=== PATIENT | female | born 1955 | race Caucasian/White ===

== ENCOUNTER → 2018-01-06 09:37 | Outpatient (CLI) | payer OTHER, SELFPAY ==
[2018-01-06 09:46] LABS: Microscopic, Urine URINE MICROSCOPIC (MICROSCOPIC)
[2018-01-06 10:23] LABS: Basophils # 0.1 K/mm3 (0-0.2); Basophils % 0.6 % (0.1-2.0); Eosinophils # 0.2 K/mm3 (0.0-0.4); Eosinophils % 1.7 % (0.1-12.0); Hemoglobin 14.5 g/dL (12.2-16.2); Lymphocytes # 3.9 K/mm3 (0.7-4.5); Lymphocytes % 36.9 K/mm3 (10-50); Mean Corpuscular HGB Conc 32.4 g/dL (31.8-35.4); Mean Corpuscular Hemoglobin 29.1 pg (27.0-31.2); Mean Corpuscular Volume 89.9 fl (81-99); Mean Platelet Volume 7.5 fl (7.4-10.4); Monocytes # 0.5 K/mm3 (0.1-1.0); Monocytes % 4.3 % (1.7-9.3); Neutrophils # 5.9 K/mm3 (1.8-7.8); Neutrophils % 56.5 % (37.0-80.0); Platelet Count 251 K/mm3 (142-424); Red Cell Distribution Width 14.2 % (11.5-17.5); White Blood Count 10.4 K/mm3 (4.8-10.8)
[2018-01-06 10:27] LABS: Appearance,Urine CLEAR (Clear); Bilirubin,Urine Negative (Negative); Blood, Urine Negative (Negative); Color,Urine YELLOW (Yellow); Glucose,Urine (UA) Negative (Negative); Ketones,Urine Negative (Negative); Leukocyte Esterase,Urine TRACE (Negative); Nitrate,Urine Negative (Negative); Protein,Urine Negative (Negative); Specific Gravity, Urine 1.025 (1.005-1.030); Urobilinogen,Urine 0.2 EU/dl (0.2)
[2018-01-06 10:42] LABS: Bacteria,Urine 2+ /lpf; Squamous Epithelial Cell,Urine 50-100 #/hpf (0-5)
[2018-01-06 10:58] LABS: Creatinine,Urine Random 216 mg/dL (20-320); Total Protein,Urine Random 23.6 mg/dL (0.0-11.9)
[2018-01-06 11:09] LABS: Albumin Level 3.8 gm/dL (3.4-5.0); Anion Gap 12.1 mEq/L (5-15); Blood Urea Nitrogen 31 mg/dL (7-18); Calcium 9.8 mg/dL (8.5-10.1); Carbon Dioxide 32 mmol/L (21.0-32.0); Chloride 103 mmol/L (98-107); Estimated Glomerular Filt Rate 31 ml/min (>60); GFR (African American) 37 ML/MIN (>60); Glucose 196 mg/dL (74-106); Phosphorous 3.3 mg/dL (2.4-4.9); Potassium 4.1 mmoL/L (3.5-5.1); Sodium 143 mmol/L (136-145); Uric Acid 6.6 mg/dL (2.6-7.2)
[2018-01-07 06:19] LABS: Vitamin D 25 Hydroxy 39.3 ng/mL (30.0-100.0)
[2018-01-08 14:47] LABS: Parathyroid Hormone Intact 70 pg/mL (15-65)
== END ==
PROVIDERS: Visit Provider Internal Medicine Nephrology
DX: N18.3 Chronic kidney disease, stage 3 (moderate) (principal)
CPT/HCPCS: 36415; 80069; 81001; 82570; 82652; 83970; 84155; 84550; 85025; 87086

== ENCOUNTER → 2018-01-07 11:33 | Outpatient (CLI) | payer OTHER, SELFPAY ==
[2018-01-08 14:49] LABS: Calcium, Ionized 5.5 mg/dL (4.5-5.6)
== END ==
PROVIDERS: Visit Provider Internal Medicine Nephrology
DX: N18.3 Chronic kidney disease, stage 3 (moderate) (principal)
CPT/HCPCS: 82330

== ENCOUNTER → 2018-01-12 14:45 | Outpatient (POV) | payer BC, SELFPAY | PROVIDERS: Visit Provider Internal Medicine Nephrology | DX: Z00.00 Encounter for general adult medical examination without abnormal findings (principal) ==

== ENCOUNTER → 2018-04-16 13:56 | Outpatient (CLI) | payer BC, SELFPAY ==
--- NOTE | 2018-04-16 14:25 | US_ITS ---
US kidney retroperitoneal comp HISTORY: ITS.REASON: RENAL CYSTS ORDERING PHYSICIAN: Boyd Nobles MD PATIENT AGE: 62 years Comparison: 07/28/2017 FINDINGS: The right kidney measures 9 x 5 x 5 cm. There is cortical thinning. No hydronephrosis Left kidney is 10 x 5 x 4 cm. A 16 mm cyst is present in the upper pole, 13 mm cyst in the midpole. Lower pole renal cyst not identified on today's study. There is mild cortical thinning IMPRESSION: Bilateral renal cortical thinning with benign-appearing left renal cyst
== END ==
PROVIDERS: PCP Family Medicine; Visit Provider Family Medicine
DX: N28.1 Cyst of kidney, acquired (principal)
CPT/HCPCS: 76770

== ENCOUNTER → 2018-05-01 12:50 | Outpatient (CLI) | payer BC, SELFPAY ==
--- NOTE | 2018-05-01 12:52 | CI_ITS ---
Cerebrovascular Exam Indications: 780.4 Dizziness and giddiness. 780.2 Syncope and collapse. Strong family history for CVA and TIA. IMPRESSIONS 1. Study suggests less than 20% stenosis involving the left internal carotid artery. 2. Study suggests 20% stenosis involving the right internal carotid artery. History: Syncope. Coronary artery disease. Carotid duplex study. Complete study and Doppler flow study including spectral analysis, color and marie scale imaging. Location: Vascular laboratory. Patient status: Outpatient. Tables: Arterial flow: + +--------+--------+ Location V sys V ed + +--------+--------+ Right CCA - proximal 75.4cm/s 17cm/s + +--------+--------+ Right CCA - distal 72.2cm/s 19.9cm/s + +--------+--------+ Right ECA 111cm/s -------- + +--------+--------+ Right ICA - proximal 101cm/s 20.1cm/s + +--------+--------+ Right ICA - mid 88cm/s 27cm/s + +--------+--------+ Right ICA - distal 69.1cm/s 24.5cm/s + +--------+--------+ Right vertebral 54.7cm/s -------- + +--------+--------+ Left CCA - proximal 115cm/s 18.2cm/s + +--------+--------+ Left CCA - distal 104cm/s 22cm/s + +--------+--------+ Left ECA 94.3cm/s -------- + +--------+--------+ Left ICA - proximal 96.8cm/s 28.9cm/s + +--------+--------+ Left ICA - mid 88.6cm/s 27cm/s + +--------+--------+ Left ICA - distal 72.3cm/s 28.3cm/s + +--------+--------+ Left vertebral 54.1cm/s -------- + +--------+--------+ Velocity ratios: + + + + + + Right, V sys Right, V ed Left, V sys Left, V ed + + + + + + Max ICA/dist CCA 1.4 1.36 0.93 1.31 + + + + + + (Report amended ) Electronically signed by: Diaz Muniz [id number]
== END ==
PROVIDERS: PCP Family Medicine; Visit Provider Internal Medicine
DX: R55 Syncope and collapse (principal)
CPT/HCPCS: 93880

== ENCOUNTER → 2018-07-07 11:11 | Outpatient (CLI) | payer BC, SELFPAY ==
--- NOTE | 2018-07-07 11:16 | XR_ITS ---
XR DEXA axial skeleton HISTORY: ITS.REASON: OSTEOPENIA ORDERING PHYSICIAN: Kwasi Nieves PATIENT AGE: 63 years COMPARISON: 07/08/2016 FINDINGS: The BMD measured at the left femoral neck is 0.800 g/cm squared with a T score of -1.7. This is considered Osteopenic according to the World Health Organization criteria. Fracture risk is Moderate. Treatment is advised. The hip density has increased by 1.3% IMPRESSION: Osteopenia with moderate fracture risk. Suggest treatment and follow-up exam June 2020
== END ==
PROVIDERS: PCP Family Medicine; Visit Provider Internal Medicine Nephrology
DX: M85.89 Other specified disorders of bone density and structure, multiple sites (principal)
CPT/HCPCS: 77080

== ENCOUNTER → 2018-07-09 10:45 | Outpatient (CLI) | payer BC, SELFPAY ==
[2018-07-09 12:05] LABS: Hemoglobin A1C 6.8 % (0.0-7.0)
[2018-07-09 12:46] LABS: Uric Acid 6.8 mg/dL (2.6-7.2)
[2018-07-09 13:22] LABS: Alanine Aminotransferase 21 U/L (12-78); Albumin Level 3.6 gm/dL (3.4-5.0); Anion Gap 11.5 mEq/L (5-15); Blood Urea Nitrogen 33 mg/dL (7-18); Calcium 9.6 mg/dL (8.5-10.1); Carbon Dioxide 34 mmol/L (21.0-32.0); Chloride 104 mmol/L (98-107); Cholesterol 178 mg/dL (140-200); Creatinine,Serum 1.55 mg/dL (0.55-1.02); Estimated Glomerular Filt Rate 34 ml/min (>60); GFR (African American) 41 ML/MIN (>60); Glucose 155 mg/dL (74-106); Potassium 4.5 mmoL/L (3.5-5.1); Sodium 145 mmol/L (136-145); Thyroid Stimulating Hormone 1.07 uIU/ml (0.358-3.740)
[2018-07-09 13:55] LABS: Albumin/Globulin Ratio 1.1 (1.1-1.8); Alkaline Phosphatase 90 U/L (46-116); Aspartate Amino Transferase 15 U/L (15-37); Bilirubin,Total 0.4 mg/dL (0.2-1.0); Chol/HDL Ratio 5.2 (1-3.5); Free T4 (Free Thyroxine) 0.82 ng/dl (0.76-1.46); Globulin 3.4 gm/dl (1.3-3.2); HDL Cholesterol 34 mg/dL (29-89); LDL Cholesterol 102 mg/dL (0-130); Triglycerides 209 mg/dL (30-200); VLDL Cholesterol 42 mg/dL (0-40)
[2018-07-10 14:15] LABS: Parathyroid Hormone Intact 88 pg/mL (15-65); Vitamin D 25 Hydroxy 48.7 ng/mL (30.0-100.0)
[2018-07-10 17:46] LABS: Calcium, Ionized 5.4 mg/dL (4.5-5.6)
== END ==
PROVIDERS: Internal Medicine Nephrology; Nurse Practitioner; PCP Family Medicine; Visit Provider Family Medicine
DX: I10 Essential (primary) hypertension (principal); E04.9 Nontoxic goiter, unspecified; E11.65 Type 2 diabetes mellitus with hyperglycemia
CPT/HCPCS: 36415; 80053; 80061; 80069; 82330; 82652; 83036; 83520; 83970; 84100; 84439; 84443; 84550

== ENCOUNTER → 2018-07-13 14:38 | Outpatient (POV) | payer BC, SELFPAY | PROVIDERS: Visit Provider Internal Medicine Nephrology | DX: Z00.00 Encounter for general adult medical examination without abnormal findings (principal) ==

== ENCOUNTER → 2019-01-20 13:37 | Outpatient (CLI) | payer BC, SELFPAY ==
--- NOTE | 2019-01-20 13:53 | US_ITS ---
US thyroid HISTORY: Follow-up thyroid nodule ITS.REASON: THYROID NODULE ORDERING PHYSICIAN: Chantelle Mercedes MD PATIENT AGE: 63 years Comparison: 07/28/2017 FINDINGS: Right lobe: 5.4 x 3.4 x 2.3 cm. 16 x 13 mm Echogenic nodule in the mid polar region unchanged Left lobe: The left lobe is 5.5 x 2.9 x 3 cm. There is a 4.6 x 3.2 cm mixed echogenic nodule in the lower pole unchanged. Isthmus: There is an 8 mm nodule within the central aspect of the isthmus which is isoechoic not significant change. IMPRESSION: Thyromegaly with bilateral nodules not significantly changed
== END ==
PROVIDERS: PCP Family Medicine; Visit Provider Otolaryngology
DX: E04.1 Nontoxic single thyroid nodule (principal)
CPT/HCPCS: 76536

== ENCOUNTER → 2019-01-25 15:54 | Outpatient (CLI) | payer BC, SELFPAY ==
--- NOTE | 2019-01-25 16:01 | XR_ITS ---
XR ankle RT min 3V HISTORY: Right ankle pain and swelling ITS.REASON: RT ANKLE PAIN,JOINT PAIN ORDERING PHYSICIAN: Boyd Nobles MD PATIENT AGE: 63 years Comparison: None FINDINGS: No fracture or dislocation. No lytic or blastic change. There is normal mineralization.. There is mild narrowing of the ankle mortise medially. There is minor spurring of the tip of the lateral malleolus and the tip of the medial malleolus. No erosive changes evident. There is prominent soft tissue swelling both medially and laterally. There are prominent spurs of the calcaneus at insertion of Achilles tendon and plantar tendon. IMPRESSION: Minor posttraumatic and/or arthritic changes of the ankle joint, no acute fracture seen.
== END ==
PROVIDERS: PCP Family Medicine; Visit Provider Family Medicine
DX: M25.571 Pain in right ankle and joints of right foot (principal)
CPT/HCPCS: 73610

== ENCOUNTER → 2019-02-26 14:49 | Outpatient (CLI) | payer BC, SELFPAY ==
--- NOTE | 2019-02-26 14:52 | CA_ITS ---
PROCEDURE: 2-D M-mode and color Doppler study INDICATIONS FOR THE TEST: Chest pain+ COPD+ Heart Murmur Tobacco Smoking Palpitations+ Fatigue+ Syncope Edema+ Hypertension+Diabetes Mellitus Rheumatic Fever SOB+SHERMAN+Obesity Hyperlipidemia+ Family History HD+ Additional History Pacemaker PATIENT INFORMATION HEIGHT: 64 WEIGHT: 254 GENDER: Female B/P: 117/66 2-D/M-MODE INTERPRETATION: 2-D MEASUREMENTS OBSERVED VALUES IN CMS Right Ventricular Dimension (RVDd) 2.6 Interventricular Septum (Thickness)(IVsd) 1.5 Left Ventricular Internal Dimensions(LVIDd) 3.0 Left Ventricular Posterior Wall (Thickness)(LVPWd) 1.5 Aortic Root 2.6 Aortic Cusp Separation 2.0 Left Atrial Dimensions (LAD) 3.1 2D 1. Left atrium is mildly enlarged, left ventricle is normal size, mild concentric left ventricular hypertrophy, visually estimated ejection fraction 55% with no regional wall motion abnormality. 2. The right atrium and right ventricle are normal size and contractility, there is a pacemaker lead seen in the right atrium. Right ventricular lead is not visualized. 3. The aortic valve is minimally thickened and fibrosed. 4. The mitral and tricuspid valve are grossly normal. 5. The pulmonic valve is poorly present. 6. No significant pericardial effusion noted. DOPPLER INTERROGATION: Doppler interrogation of the aortic, mitral and tricuspid valvular presence of mild mitral and tricuspid regurgitation, tricuspid regurgitation jet velocity is inadequate for calculation of the right ventricular systolic pressure, grade 1 diastolic dysfunction seen with tissue Doppler evidence of raised left atrial pressure. CONCLUSION: 1. Mildly enlarged left atrium, normal left ventricular size, mild concentric left ventricular hypertrophy, visually estimated ejection fraction 55% with no regional wall motion abnormality, grade 1 diastolic dysfunction seen with tissue Doppler evidence of raised left atrial pressure. 2. Mild mitral and tricuspid regurgitation 3. No significant pericardial effusion noted.
== END ==
PROVIDERS: PCP Family Medicine; Visit Provider Urology
DX: I25.10 Atherosclerotic heart disease of native coronary artery without angina pectoris (principal); I20.9 Angina pectoris, unspecified; R06.00 Dyspnea, unspecified; E78.49 Other hyperlipidemia; I10 Essential (primary) hypertension; Z95.0 Presence of cardiac pacemaker
CPT/HCPCS: 93306

== ENCOUNTER → 2019-03-29 12:41 | Outpatient (CLI) | payer BC, SELFPAY ==
[2019-03-29 14:21] LABS: Albumin Level 3.6 gm/dL (3.4-5.0); Anion Gap 11.7 mEq/L (5-15); Blood Urea Nitrogen 34 mg/dL (7-18); Calcium 10.1 mg/dL (8.5-10.1); Carbon Dioxide 34 mmol/L (21.0-32.0); Chloride 101 mmol/L (98-107); Estimated Glomerular Filt Rate 30 ml/min (>60); GFR (African American) 37 ML/MIN (>60); Glucose 76 mg/dL (74-106); Potassium 4.7 mmoL/L (3.5-5.1); Sodium 142 mmol/L (136-145)
[2019-04-01 08:05] LABS: Calcium, Ionized 5.8 mg/dL (4.5-5.6); Parathyroid Hormone Intact 60 pg/mL (15-65)
== END ==
PROVIDERS: Visit Provider Internal Medicine Nephrology
DX: N18.3 Chronic kidney disease, stage 3 (moderate) (principal); I10 Essential (primary) hypertension
CPT/HCPCS: 36415; 80069; 82330; 83520; 83970

== ENCOUNTER → 2019-04-07 14:46 | Outpatient (POV) | payer BC, SELFPAY | PROVIDERS: Visit Provider Internal Medicine Nephrology | DX: Z00.00 Encounter for general adult medical examination without abnormal findings (principal) ==

== ENCOUNTER → 2020-01-11 11:58 | Outpatient (CLI) | payer BC, SELFPAY ==
[2020-01-11 12:58] LABS: Basophils # 0.1 K/mm3 (0-0.2); Eosinophils # 0.2 K/mm3 (0.0-0.4); Eosinophils % 1.5 % (0.1-12.0); Hematocrit 45.3 % (37.0-47.0); Hemoglobin 14.4 g/dL (12.2-16.2); Lymphocytes # 3.7 K/mm3 (0.7-4.5); Lymphocytes % 30.7 % (10-50); Mean Corpuscular HGB Conc 31.7 g/dL (31.8-35.4); Mean Corpuscular Hemoglobin 28.3 pg (27.0-31.2); Mean Corpuscular Volume 89.3 fl (81-99); Mean Platelet Volume 7.8 fl (7.4-10.4); Monocytes # 0.5 K/mm3 (0.1-1.0); Neutrophils # 7.7 K/mm3 (1.8-7.8); Neutrophils % 62.9 % (37.0-80.0); Platelet Count 281 K/mm3 (142-424); Red Blood Count 5.08 M/mm3 (4.20-5.40); Red Cell Distribution Width 14.8 % (11.5-17.5); White Blood Count 12.2 K/mm3 (4.8-10.8)
[2020-01-11 13:29] LABS: Anion Gap 10.8 mEq/L (5-15); Blood Urea Nitrogen 29 mg/dl (7-17); Calcium 10.5 mg/dl (8.4-10.2); Carbon Dioxide 36 mmol/L (22.0-30.0); Chloride 98 mmol/L (98-107); Estimated Glomerular Filt Rate 35 ml/min (>60); GFR (African American) 42 ML/MIN (>60); Glucose 94 mg/dl (74-100); Potassium 4.8 mmoL/L (3.5-5.1); Sodium 140 mmol/L (136-145)
== END ==
PROVIDERS: Visit Provider Urology
DX: E78.5 Hyperlipidemia, unspecified (principal); I10 Essential (primary) hypertension; I25.10 Atherosclerotic heart disease of native coronary artery without angina pectoris; I70.1 Atherosclerosis of renal artery; I73.9 Peripheral vascular disease, unspecified; Z95.0 Presence of cardiac pacemaker; Z98.890 Other specified postprocedural states
CPT/HCPCS: 36415; 80048; 85025

== ENCOUNTER 2020-01-12 08:56 | Day surgery (SDC) | payer BC, SELFPAY ==
[2020-01-12] VITALS (11 sets, daily range): BP systolic 116–163; BP diastolic 60–100; PULSE 70–79; RESP 14–18; TEMP 36.3; O2SAT 89–98; BMI 44.9
[2020-01-12 09:38] LABS: Basophils # 0.1 K/mm3 (0-0.2); Eosinophils # 0.2 K/mm3 (0.0-0.4); Eosinophils % 1.4 % (0.1-12.0); Hematocrit 46.5 % (37.0-47.0); Hemoglobin 14.7 g/dL (12.2-16.2); Lymphocytes # 3.9 K/mm3 (0.7-4.5); Lymphocytes % 29.8 % (10-50); Mean Corpuscular HGB Conc 31.7 g/dL (31.8-35.4); Mean Corpuscular Hemoglobin 28.8 pg (27.0-31.2); Mean Corpuscular Volume 90.9 fl (81-99); Mean Platelet Volume 7.6 fl (7.4-10.4); Monocytes # 0.7 K/mm3 (0.1-1.0); Neutrophils # 8.2 K/mm3 (1.8-7.8); Neutrophils % 62.8 % (37.0-80.0); Platelet Count 283 K/mm3 (142-424); Red Blood Count 5.11 M/mm3 (4.20-5.40); White Blood Count 13.1 K/mm3 (4.8-10.8)
[2020-01-12 09:45] LABS: Anion Gap 11.3 mEq/L (5-15); Blood Urea Nitrogen 36 mg/dl (7-17); Calcium 10.3 mg/dl (8.4-10.2); Carbon Dioxide 35 mmol/L (22.0-30.0); Chloride 96 mmol/L (98-107); Creatinine Clearance Estimated 33 mL/min (50-200); Estimated Glomerular Filt Rate 35 ml/min (>60); GFR (African American) 42 ML/MIN (>60); Glucose 166 mg/dl (74-100); Potassium 4.3 mmoL/L (3.5-5.1); Sodium 138 mmol/L (136-145)
--- NOTE | 2020-01-12 11:00 | IR_ITS ---
APPROVED REPORT Patient Location: Outpatient Burnishing Machine Operator: ELVIRA Bautista RT (R) PROCEDURES Right heart catheterization Left heart catheterization Left ventriculogram Selective coronary angiogram INDICATION Unstable angina, Pulmonary hypertension, Class IV congestive heart failure symptoms, Informed consent was obtained prior to the procedure. COMPLICATIONS NONE Estimated Blood Loss: LESS THAN 10 ML TECHNIQUE One percent lidocaine was used to anesthetize the right anterior aspect of the right wrist. The right radial artery was accessed via the Seldinger technique and a 6 Latvian hydrophilic sheath was placed in the right radial artery. Following this one percent lidocaine was used to anesthetize the right anterior aspect of the right neck. The right internal jugular vein was accessed via the Seldinger technique and a 7 Latvian sheath was placed in the right internal jugular vein. Following this an arterial cocktail was administered using 5000U heparin, 2.5 mg verapamil, 1mg Lidocaine and 800mcg nitroglycerin into the right radial sheath. A trap catheter was used to perform left heart catheterization left ventriculogram and selective coronary angiography while a [place]-Frantz catheter was used to perform right heart catheterization. Saturations were obtained in the pulmonary artery and right atrium. At the end of the procedure the arterial sheath was removed good hemostasis was achieved using Traclet band. Patient was transferred to the postop holding area in stable condition for venous sheath removal. ANGIOGRAPHIC RESULTS The left main artery Normal The left anterior descending artery Normal The circumflex artery Normal The right coronary artery Is dominant and has a proximal 10 to 20% smooth stenosis The LAW ventriculogram reveals Normal 65% The left ventricular end-diastolic pressure 20 mmHg Right atrial pressure 6 mmHg Pulmonary artery pressure 40/18 mmHg Pulmonary occlusion pressure 17 mmHg Pulmonary artery saturation 81% Right atrial saturation 80% IMPRESSION Mild npx-qehl-qwcclare coronary artery disease Normal ejection fraction Elevated LVEDP consistent with diastolic dysfunction Moderate pulmonary hypertension at least in part related to diastolic dysfunction PLAN 1. Treat underlying diastolic dysfunction Electronically signed by : Tavo Brock, 01/12/2020 13:18:41
[2020-01-12 14:29] LABS: CATHL Arterial O2 SAT 80 % (90-100); CATHL Venous O2 SAT 81 % (75-80)
== END 2020-01-12 16:17 | disposition home or self-care (01) ==
LOC: CATHLAB 09:02
PROVIDERS: PCP Family Medicine; Visit Provider Internal Medicine
DX: I25.118 Atherosclerotic heart disease of native coronary artery with other forms of angina pectoris (principal); E78.2 Mixed hyperlipidemia; I11.0 Hypertensive heart disease with heart failure; R06.09 Other forms of dyspnea; Z95.0 Presence of cardiac pacemaker; I27.20 Pulmonary hypertension, unspecified; I50.30 Unspecified diastolic (congestive) heart failure; E11.9 Type 2 diabetes mellitus without complications; Z79.4 Long term (current) use of insulin; Z88.5 Allergy status to narcotic agent; Z88.8 Allergy status to other drugs, medicaments and biological substances
CPT/HCPCS: 80048; 82810; 85025; 93460; 99152; 99153; C1725; C1760; C1769; C1894; J1644; Q9967

== ENCOUNTER → 2020-01-24 11:00 | Outpatient (CLI) | payer BC, SELFPAY ==
[2020-01-24 12:51] LABS: Blood Urea Nitrogen 67 mg/dl (7-17); Carbon Dioxide 32 mmol/L (22.0-30.0); Chloride 92 mmol/L (98-107); Estimated Glomerular Filt Rate 19 ml/min (>60); GFR (African American) 24 ML/MIN (>60); Glucose 235 mg/dl (74-100); Sodium 136 mmol/L (136-145)
[2020-01-24 13:00] LABS: NT Pro Brain Natriuretic Pep. 258 pg/mL (0-125)
== END ==
PROVIDERS: Visit Provider Nurse Practitioner Family
DX: I25.10 Atherosclerotic heart disease of native coronary artery without angina pectoris (principal); R06.09 Other forms of dyspnea; E78.2 Mixed hyperlipidemia; I10 Essential (primary) hypertension; Z95.0 Presence of cardiac pacemaker
CPT/HCPCS: 36415; 80048; 83880

== ENCOUNTER → 2020-01-31 11:22 | Outpatient (CLI) | payer BC, SELFPAY ==
[2020-01-31 13:32] LABS: Anion Gap 16.3 mEq/L (5-15); Blood Urea Nitrogen 68 mg/dl (7-17); Calcium 10.7 mg/dl (8.4-10.2); Carbon Dioxide 31 mmol/L (22.0-30.0); Chloride 95 mmol/L (98-107); Estimated Glomerular Filt Rate 20 ml/min (>60); GFR (African American) 25 ML/MIN (>60); Glucose 228 mg/dl (74-100); Potassium 5.3 mmoL/L (3.5-5.1); Sodium 137 mmol/L (136-145)
== END ==
PROVIDERS: Nurse Practitioner Family; Visit Provider Internal Medicine
DX: I10 Essential (primary) hypertension (principal)
CPT/HCPCS: 36415; 80048

== ENCOUNTER → 2020-02-07 16:56 | Outpatient (CLI) | payer BC, SELFPAY ==
[2020-02-07 18:11] LABS: Chloride 101 mmol/L (98-107); Potassium 4.9 mmoL/L (3.5-5.1); Sodium 139 mmol/L (136-145)
[2020-02-07 18:14] LABS: Anion Gap 11.9 mEq/L (5-15); Blood Urea Nitrogen 34 mg/dl (7-17); Calcium 9.8 mg/dl (8.4-10.2); Carbon Dioxide 31 mmol/L (22.0-30.0); Estimated Glomerular Filt Rate 30 ml/min (>60); GFR (African American) 37 ML/MIN (>60); Glucose 144 mg/dl (74-100)
== END ==
PROVIDERS: Visit Provider Urology
DX: I25.10 Atherosclerotic heart disease of native coronary artery without angina pectoris (principal); E78.5 Hyperlipidemia, unspecified; I10 Essential (primary) hypertension; R06.00 Dyspnea, unspecified
CPT/HCPCS: 36415; 80048

== ENCOUNTER → 2020-02-17 16:35 | Outpatient (CLI) | payer BC, SELFPAY ==
[2020-02-17 17:03] LABS: Chloride 98 mmol/L (98-107); Potassium 4.5 mmoL/L (3.5-5.1); Sodium 140 mmol/L (136-145)
[2020-02-17 17:06] LABS: Blood Urea Nitrogen 29 mg/dl (7-17); Estimated Glomerular Filt Rate 30 ml/min (>60); GFR (African American) 37 ML/MIN (>60)
[2020-02-17 17:07] LABS: Anion Gap 11.5 mEq/L (5-15); Calcium 9.8 mg/dl (8.4-10.2); Carbon Dioxide 35 mmol/L (22.0-30.0); Glucose 221 mg/dl (74-100)
== END ==
PROVIDERS: Visit Provider Physician Assistant
DX: R06.00 Dyspnea, unspecified (principal); I51.89 Other ill-defined heart diseases
CPT/HCPCS: 36415; 80048

== ENCOUNTER → 2020-02-28 16:48 | Outpatient (CLI) | payer BC, SELFPAY ==
[2020-02-28 17:14] LABS: Chloride 101 mmol/L (98-107); Potassium 4.6 mmoL/L (3.5-5.1); Sodium 141 mmol/L (136-145)
[2020-02-28 17:17] LABS: Blood Urea Nitrogen 29 mg/dl (7-17); Estimated Glomerular Filt Rate 33 ml/min (>60); GFR (African American) 39 ML/MIN (>60)
[2020-02-28 17:18] LABS: Anion Gap 8.6 mEq/L (5-15); Calcium 9.2 mg/dl (8.4-10.2); Carbon Dioxide 36 mmol/L (22.0-30.0); Glucose 109 mg/dl (74-100)
[2020-02-28 17:29] LABS: NT Pro Brain Natriuretic Pep. 1010 pg/mL (0-125)
== END ==
PROVIDERS: Visit Provider Nurse Practitioner Family
DX: R42 Dizziness and giddiness (principal); R06.09 Other forms of dyspnea; I20.9 Angina pectoris, unspecified; E11.9 Type 2 diabetes mellitus without complications; E78.2 Mixed hyperlipidemia; I10 Essential (primary) hypertension; I45.10 Unspecified right bundle-branch block; I51.89 Other ill-defined heart diseases; I65.23 Occlusion and stenosis of bilateral carotid arteries; I70.1 Atherosclerosis of renal artery; Z95.0 Presence of cardiac pacemaker; Z98.890 Other specified postprocedural states
CPT/HCPCS: 36415; 80048; 83880

== ENCOUNTER → 2020-04-24 18:19 | Outpatient (CLI) | payer BC, SELFPAY ==
[2020-04-24 19:26] LABS: Chloride 96 mmol/L (98-107); Potassium 4.6 mmoL/L (3.5-5.1); Sodium 140 mmol/L (136-145)
[2020-04-24 19:29] LABS: Anion Gap 15.6 mEq/L (5-15); Blood Urea Nitrogen 32 mg/dl (7-17); Calcium 10.2 mg/dl (8.4-10.2); Carbon Dioxide 33 mmol/L (22.0-30.0); Estimated Glomerular Filt Rate 30 ml/min (>60); GFR (African American) 37 ML/MIN (>60); Glucose 115 mg/dl (74-100)
[2020-04-24 19:38] LABS: NT Pro Brain Natriuretic Pep. 223 pg/mL (0-125)
== END ==
PROVIDERS: Visit Provider Urology
DX: R06.00 Dyspnea, unspecified (principal); I10 Essential (primary) hypertension
CPT/HCPCS: 36415; 80048; 83880

== ENCOUNTER → 2020-05-22 16:03 | Outpatient (CLI) | payer BC, SELFPAY ==
[2020-05-22 16:30] LABS: Basophils # 0.1 K/mm3 (0-0.2); Basophils % 0.4 % (0.1-2.0); Eosinophils # 0.2 K/mm3 (0.0-0.4); Eosinophils % 0.9 % (0.1-12.0); Hematocrit 43.8 % (37.0-47.0); Hemoglobin 14.6 g/dL (12.2-16.2); Lymphocytes # 5.1 K/mm3 (0.7-4.5); Lymphocytes % 29.9 % (10-50); Mean Corpuscular HGB Conc 33.3 g/dL (31.8-35.4); Mean Corpuscular Volume 86.9 fl (81-99); Mean Platelet Volume 7.3 fl (7.4-10.4); Monocytes # 0.8 K/mm3 (0.1-1.0); Monocytes % 4.5 % (1.7-9.3); Neutrophils # 11.1 K/mm3 (1.8-7.8); Neutrophils % 64.3 % (37.0-80.0); Platelet Count 298 K/mm3 (142-424); Red Blood Count 5.04 M/mm3 (4.20-5.40); Red Cell Distribution Width 15.8 % (11.5-17.5); White Blood Count 17.2 K/mm3 (4.8-10.8)
[2020-05-22 16:37] LABS: MANUAL DIFFERENTIAL MANUAL DIFFERENTIAL (MANUAL DIFF)
[2020-05-22 18:23] LABS: Lymphocytes % 30 % (10-50); Monocytes % 6 % (2-9); Neutrophils % 64 % (42-76); Platelet Estimate Normal; Total Cells Counted 100
[2020-05-22 18:48] LABS: Albumin Level 4.1 g/dl (3.5-5.0); Blood Urea Nitrogen 46 mg/dl (7-17); Calcium 10.1 mg/dl (8.4-10.2); Carbon Dioxide 34 mmol/L (22.0-30.0); Chloride 99 mmol/L (98-107); Estimated Glomerular Filt Rate 30 ml/min (>60); GFR (African American) 37 ML/MIN (>60); Glucose 70 mg/dl (74-100); Phosphorous 3.7 mg/dl (2.5-4.5); Sodium 144 mmol/L (136-145)
[2020-05-22 20:46] LABS: RBC Morphology Normal
[2020-05-22 21:15] LABS: 25-OH Vitamin D, Total 64.9 ng/mL (30-100)
== END ==
PROVIDERS: Visit Provider Internal Medicine Nephrology
DX: N18.3 Chronic kidney disease, stage 3 (moderate) (principal); Z86.79 Personal history of other diseases of the circulatory system
CPT/HCPCS: 36415; 80069; 82306; 85007; 85025

== ENCOUNTER → 2020-05-23 09:37 | Outpatient (CLI) | payer BC, SELFPAY ==
--- NOTE | 2020-05-23 09:41 | XR_ITS ---
PROCEDURE: XR DEXA AXIAL SKELETON CLINICAL HISTORY: OSTEOPOROSIS, HX OF HEART DISORDER COMPARISON: CR DEXAAX XR DEXA axial skeleton from 07/07/2018 FINDINGS: The right hip BMD is 0.693 with a T-score of -1.4. The left hip BMD is 0.506 with a T-score of -3.1. The right forearm BMD is 0.467 with a T-score of -3.8. Previously the lowest density was in the left femoral neck with a T-score of -1.7. The bone mineral density is moderately lower now osteoporotic IMPRESSION: This patient is considered osteoporotic according to the World Health Organization criteria. Fracture risk is high. Treatment is advised. Based on these results a follow-up exam is recommended in 1 year. Dictated by: Diaz Muniz MD 05/24/2020 11:37 Diaz Muniz MD in [place] 05/24/2020 11:37
== END ==
PROVIDERS: PCP Family Medicine; Visit Provider Internal Medicine Nephrology
DX: M81.0 Age-related osteoporosis without current pathological fracture (principal); Z86.79 Personal history of other diseases of the circulatory system
CPT/HCPCS: 77080

== ENCOUNTER → 2020-05-29 11:45 | Outpatient (POV) | payer BC, SELFPAY | PROVIDERS: Visit Provider Internal Medicine Nephrology | DX: Z00.00 Encounter for general adult medical examination without abnormal findings (principal) ==

== ENCOUNTER → 2020-07-10 16:05 | Outpatient (CLI) | payer BC, SELFPAY ==
--- NOTE | 2020-07-10 16:11 | XR_ITS ---
PROCEDURE: XR SHOULDER RT MIN 2V CLINICAL INDICATION: PAIN IN RT SHOULDER COMPARISON: CR SHOU1R [id number] VIEW-RT from 05/06/2013 CR SHOU3L [id number] VIEWS from 05/06/2013 CR SHOU3L [id number] VIEWS from 05/26/2013 CR SHOU3L [id number] VIEWS from 04/20/2017 FINDINGS: No fracture or dislocation. No lytic or blastic change. There is normal mineralization. There is some cortical irregularity involving the greater tuberosity which may be seen with rotator cuff disease. Minimal osteoarthritic changes involve the glenohumeral joint. Other findings:None. IMPRESSION: Mild degenerative changes Dictated by: Diaz Muniz MD 07/10/2020 17:59 Diaz Muniz MD in [facility] 07/10/2020 17:59
== END ==
PROVIDERS: PCP Family Medicine; Visit Provider Family Medicine
DX: M25.511 Pain in right shoulder (principal)
CPT/HCPCS: 73030

== ENCOUNTER → 2020-07-17 16:58 | Outpatient (CLI) | payer BC, SELFPAY ==
[2020-07-17 20:36] LABS: Albumin Level 4.5 g/dl (3.5-5.0); Chloride 100 mmol/L (98-107); Potassium 5.2 mmoL/L (3.5-5.1); Sodium 146 mmol/L (136-145)
[2020-07-17 20:38] LABS: Blood Urea Nitrogen 35 mg/dl (7-17); Estimated Glomerular Filt Rate 32 ml/min (>60); GFR (African American) 39 ML/MIN (>60)
[2020-07-17 20:39] LABS: Anion Gap 17.2 mEq/L (5-15); Calcium 10.4 mg/dl (8.4-10.2); Carbon Dioxide 34 mmol/L (22.0-30.0); Glucose 64 mg/dl (74-100); Phosphorous 3.6 mg/dl (2.5-4.5)
== END ==
PROVIDERS: Visit Provider Internal Medicine Nephrology
DX: N18.30 Chronic kidney disease, stage 3 unspecified (principal)
CPT/HCPCS: 36415; 80069

== ENCOUNTER → 2020-09-12 15:19 | Outpatient (CLI) | payer BC, SELFPAY ==
--- NOTE | 2020-09-12 15:19 | CT_ITS ---
PROCEDURE: CT ABDOMEN PELVIS WO CON CLINICAL INDICATION: chronic cystitis RECURRENT UTIs, low abd pain prior 01/03/17 COMPARISON: CT ABDPELW/O CT ABD PELVIS W/O CONTRAST from 01/03/2017 TECHNIQUE: Axial images obtained with sagittal and coronal reformats. All CT scans at the facility use one or more dose reduction, viz: automated exposure control, ma/kV adjustment per patient size (including targeted exams where dose is matched to indication, i.e. head), or iterative reconstruction technique. FINDINGS: LOWER THORAX: No acute finding ABDOMEN & PELVIS: The liver, spleen, pancreas, adrenal glands, and kidneys show no acute finding. No intestinal obstruction or free air. No evidence of appendicitis or diverticulitis. No pelvic mass, abnormal fluid collection, or focal inflammatory change of the pelvis. No acute bony anomalies. IMPRESSION: No acute finding Dictated by: Diaz Muniz MD 09/13/2020 02:16 Diaz Muniz MD in [facility] 09/13/2020 16:03
== END ==
PROVIDERS: PCP Family Medicine; Visit Provider Urology
DX: N30.20 Other chronic cystitis without hematuria (principal)
CPT/HCPCS: 74176

== ENCOUNTER → 2020-09-14 16:51 | Outpatient (CLI) | payer BC, SELFPAY ==
[2020-09-14 18:26] LABS: Coronavirus 19 IgG Antibody Negative (Negative); Coronavirus 19 IgM Antibody Negative (Negative)
== END ==
PROVIDERS: Visit Provider Urology
DX: Z01.818 Encounter for other preprocedural examination (principal); Z03.818 Encounter for observation for suspected exposure to other biological agents ruled out; N30.20 Other chronic cystitis without hematuria
CPT/HCPCS: 36415; 86328

== ENCOUNTER 2020-09-15 08:38 | Day surgery (SDC) | payer BC, SELFPAY ==
[2020-09-15 09:02] VITALS: BP 158/92; PULSE 79; RESP 20; TEMP 36.1; O2SAT 97; BMI 43.4
[2020-09-15 10:08] VITALS: BP 163/65; PULSE 70; RESP 18; TEMP 36.1; O2SAT 97
[2020-09-15 10:23] VITALS: BP 163/65; PULSE 70; RESP 18; TEMP 36.1; O2SAT 97
--- NOTE | 2020-09-15 13:47 | HMH.OPNOTE ---
Date of procedure: 09/15/20 Pre-op Diagnosis:: Recurring urinary tract infections, persistent dysuria, suprapubic discomfort Post-op Diagnosis:: Urethral trigonitis Procedure performed:: Flexible cystourethroscopy Surgeon:: Anthony Santana MD Anesthesia: local Estimated blood loss (mL): 0 Clinical Note:: 65-year-old white female with dysuria with and without urination, suprapubic discomfort as well as at least 2 documented urinary tract infection since February. She presents for cystoscopic evaluation. Recent CT scan showed no evidence of stones, obstruction or other urologic abnormalities. Operative findings:: Bladder appears normal, bladder neck and urethra with inflammatory findings. Operative note:: Patient taken to the cystoscopy suite after informed consent was obtained. On the stretcher she was prepped and draped in the standard surgical fashion and 2% lidocaine placed into the urethra. After 5 minutes the flexible cystoscope introduced into the urethral meatus and into the bladder without difficulty. The bladder was examined in a systematic fashion. There is no evidence of mucosal changes, diverticula, trabeculation or cellule formation. There was some pseudomembranous trigonitis present at the intertrigonal region. The ureteral orifices were in their normal anatomic position with clear efflux of urine. The bladder neck showed erythematous frondular changes as well as the proximal urethra with erythematous changes. The scope removed the patient tolerated the procedure well. We discussed the changes today in her cystoscopic exam and symptoms are consistent with urethral trigonitis. We discussed cessation of irritating foods such as caffeine, vitamin C and spicy foods. She claims she does not drink much of these. She was placed on a phylactic dose of Macrobid at her last visit. I am going to add Uribel 3 times daily as needed as well as estrogen cream. We also discussed hot tub soaks for the inflammatory syndrome. I will see her back in 1 month in follow-up. Condition: stable Disposition: same day Specimens:: None Complications:: None
== END 2020-09-15 10:23 | disposition home or self-care (01) ==
LOC: OUTP 08:42
PROVIDERS: PCP Family Medicine; Visit Provider Urology
PROC: (CPT 52000; principal; 2020-09-15 09:30)
DX: R30.0 Dysuria (principal); Z87.440 Personal history of urinary (tract) infections; E11.9 Type 2 diabetes mellitus without complications; J45.909 Unspecified asthma, uncomplicated; I65.29 Occlusion and stenosis of unspecified carotid artery; I25.10 Atherosclerotic heart disease of native coronary artery without angina pectoris; E78.5 Hyperlipidemia, unspecified; I10 Essential (primary) hypertension; Z95.1 Presence of aortocoronary bypass graft; N28.9 Disorder of kidney and ureter, unspecified; Z88.8 Allergy status to other drugs, medicaments and biological substances; Z79.82 Long term (current) use of aspirin; Z88.5 Allergy status to narcotic agent; Z79.4 Long term (current) use of insulin; Z79.899 Other long term (current) drug therapy
CPT/HCPCS: 52000

== ENCOUNTER → 2020-09-19 17:08 | Outpatient (CLI) | payer BC, SELFPAY ==
[2020-09-19 18:26] LABS: Anion Gap 13.5 mEq/L (5-15); Blood Urea Nitrogen 38 mg/dl (7-17); Calcium 10.7 mg/dl (8.4-10.2); Carbon Dioxide 37 mmol/L (22.0-30.0); Chloride 101 mmol/L (98-107); Estimated Glomerular Filt Rate 35 ml/min (>60); GFR (African American) 42 ML/MIN (>60); Glucose 68 mg/dl (74-100); Potassium 4.5 mmoL/L (3.5-5.1); Sodium 147 mmol/L (136-145)
[2020-09-19 18:34] LABS: NT Pro Brain Natriuretic Pep. 245 pg/mL (0-125)
== END ==
PROVIDERS: Visit Provider Nurse Practitioner Family
DX: R06.09 Other forms of dyspnea (principal); R42 Dizziness and giddiness; E11.9 Type 2 diabetes mellitus without complications; E78.2 Mixed hyperlipidemia; I10 Essential (primary) hypertension; I25.10 Atherosclerotic heart disease of native coronary artery without angina pectoris; I45.10 Unspecified right bundle-branch block; I65.23 Occlusion and stenosis of bilateral carotid arteries; I70.1 Atherosclerosis of renal artery; Z95.0 Presence of cardiac pacemaker; Z98.890 Other specified postprocedural states; Z79.4 Long term (current) use of insulin
CPT/HCPCS: 36415; 80048; 83880

== ENCOUNTER → 2020-11-20 12:36 | Outpatient (CLI) | payer BC, SELFPAY ==
--- NOTE | 2020-11-20 12:37 | CA_ITS ---
APPROVED REPORT EXAM: Comprehensive 2D, Doppler, and color-flow Echocardiogram Mechanical Engineering Intern: Renae Richards RVT Ht: 5 ft 4 in Wt: 251lbs BSA: 2.16 BP: 116/62 mmHg Indications: SOA,CP,FATIGUE,CP,PACER,PHTN,CAD,RBBB,DM,HTN,HLD TDS-PT BODY HABITUS 2D Dimensions LVOT 2.05 cm (M/F) 1.5-2.5 LA Volume 21.50 mL LA Volume Index 10.00 mL/m2 (M/F) 16-34 M-Mode Dimensions RVDd 2.92 cm (0.9-2.6) LA Diam 3.53 cm (1.9-4.0) LVDd 5.33 cm (3.5-5.7) Ao Diam 3.03 cm (2.0-3.7) LVDs 3.36 cm (3.5-5.7) IVSd 0.84 cm (0.6-1.1) PWd 0.52 cm (0.6-1.1) EF (Teich) 66.40% FS 37.00% EDV (Teich) 137.10 mL ESV (Teich) 46.10 mL LV Diastology E Decel Time 243.00 (160-240 msec) E/A Ratio 0.9 MED E' 5.20 (< 7 cm/sec) E'/MED E' Ratio 13.19 (>14) LAT E' 8.60 (<10 cm/sec) E/LAT E' Ratio 7.98 (>14) Mitral Valve MV E Max Julio. 69.00 (40-130 cm/s) MV A Velocity 78.00 (40-130 cm/s) E/A Ratio 0.88 MV Decel. Time 243.00 (160-240 ms) MV PHT 71.00 ms Pulmonary Valve PV Peak Velocity 87.00 (50-150 cm/s) Left Ventricle Left atrium is mildly enlarged, left ventricle is normal size, mild concentric left ventricular hypertrophy, visually estimated ejection fraction 55% with no regional wall motion abnormality, grade 1 diastolic dysfunction seen without tissue Doppler evidence of raise left atrial pressure. Right Ventricle Right atrium and right ventricle mildly enlarged with normal contractility, there is pacemaker seen right atrium and left ventricle. Aortic Valve Aortic valve is minimally thickened and fibrosed, there is no aortic stenosis or aortic insufficiency. Mitral Valve Mitral valve is grossly normal, there is trace mitral regurgitation. Tricuspid Valve Tricuspid valve grossly normal, there is trace tricuspid regurgitation. Pulmonic Valve Pulmonic valve is poorly visualized. Great Vessels Aortic root is normal size. Pericardium No significant pericardial effusion noted. Conclusion 1. Mildly enlarged left atrium, normal left ventricular size, mild concentric left ventricular hypertrophy, visually estimated ejection fraction 55% with no regional wall motion abnormality, grade 1 diastolic dysfunction seen without tissue Doppler evidence of raise left atrial pressure. 2. Mild mitral and tricuspid regurgitation. 3. No significant pericardial effusion noted. Electronically signed by : Lon Carrillo, 11/20/2020 21:52:30
[2020-11-20 14:46] LABS: Basophils # 0.1 K/mm3 (0-0.2); Basophils % 0.7 % (0.1-2.0); Eosinophils # 0.4 K/mm3 (0.0-0.4); Eosinophils % 3.8 % (0.1-12.0); Hematocrit 42.5 % (37.0-47.0); Hemoglobin 13.5 g/dL (12.2-16.2); Lymphocytes # 3.5 K/mm3 (0.7-4.5); Lymphocytes % 32.8 % (10-50); Mean Corpuscular HGB Conc 31.7 g/dL (31.8-35.4); Mean Corpuscular Hemoglobin 28.4 pg (27.0-31.2); Mean Corpuscular Volume 89.6 fl (81-99); Monocytes # 0.7 K/mm3 (0.1-1.0); Monocytes % 6.4 % (1.7-9.3); Neutrophils % 56.4 % (37.0-80.0); Platelet Count 222 K/mm3 (142-424); Red Blood Count 4.74 M/mm3 (4.20-5.40); Red Cell Distribution Width 15.3 % (11.5-17.5); White Blood Count 10.6 K/mm3 (4.8-10.8)
[2020-11-20 15:42] LABS: Anion Gap 14.5 mEq/L (5-15); Blood Urea Nitrogen 34 mg/dl (7-17); Calcium 9.4 mg/dl (8.4-10.2); Carbon Dioxide 32 mmol/L (22.0-30.0); Chloride 101 mmol/L (98-107); Estimated Glomerular Filt Rate 32 ml/min (>60); GFR (African American) 39 ML/MIN (>60); Glucose 105 mg/dl (74-100); Potassium 4.5 mmoL/L (3.5-5.1); Sodium 143 mmol/L (136-145)
[2020-11-20 15:43] LABS: Albumin Level 4.3 g/dl (3.5-5.0); Anion Gap 13.4 mEq/L (5-15); Blood Urea Nitrogen 35 mg/dl (7-17); Calcium 9.3 mg/dl (8.4-10.2); Carbon Dioxide 33 mmol/L (22.0-30.0); Chloride 101 mmol/L (98-107); Estimated Glomerular Filt Rate 35 ml/min (>60); GFR (African American) 42 ML/MIN (>60); Glucose 104 mg/dl (74-100); Phosphorous 3.7 mg/dl (2.5-4.5); Potassium 4.4 mmoL/L (3.5-5.1); Sodium 143 mmol/L (136-145)
[2020-11-20 15:53] LABS: NT Pro Brain Natriuretic Pep. 267 pg/mL (0-125)
[2020-11-20 15:56] LABS: Intact Parathyroid Hormone 337.9 pg/mL (7.5-53.5)
[2020-11-20 16:00] LABS: 25-OH Vitamin D, Total 45.4 ng/mL (30-100)
[2020-11-20 16:06] LABS: Creatinine,Urine Random 159 mg/dL (Not Estab.); Microalbumin < 6.000 mg/L (0-16.7)
[2020-11-22 16:39] LABS: C-Peptide 2.7 ng/mL (1.1-4.4); Calcium, Ionized 5.1 mg/dL (4.5-5.6)
[2020-11-24 12:59] LABS: Tandem-R Ostase 9.5 ug/L (.)
== END ==
PROVIDERS: Internal Medicine Nephrology; PCP Family Medicine; Visit Provider Nurse Practitioner Family
DX: R06.00 Dyspnea, unspecified (principal); I50.30 Unspecified diastolic (congestive) heart failure; N18.30 Chronic kidney disease, stage 3 unspecified; M81.0 Age-related osteoporosis without current pathological fracture
CPT/HCPCS: 36415; 80048; 80069; 82043; 82306; 82330; 82570; 83880; 83970; 84080; 84155; 84681; 85025; 93306

== ENCOUNTER → 2020-11-29 12:47 | Outpatient (CLI) | payer BC, SELFPAY | PROVIDERS: PCP Family Medicine; Visit Provider Nurse Practitioner Family | DX: G47.33 Obstructive sleep apnea (adult) (pediatric) (principal); R40.0 Somnolence; I27.20 Pulmonary hypertension, unspecified | CPT/HCPCS: G0399 ==

== ENCOUNTER → 2021-01-18 16:53 | Outpatient (CLI) | payer BC, SELFPAY ==
[2021-01-18 17:22] LABS: Anion Gap 11.4 mEq/L (5-15); Blood Urea Nitrogen 47 mg/dl (7-17); Calcium 10.2 mg/dl (8.4-10.2); Carbon Dioxide 35 mmol/L (22.0-30.0); Chloride 100 mmol/L (98-107); Estimated Glomerular Filt Rate 32 ml/min (>60); GFR (African American) 39 ML/MIN (>60); Glucose 161 mg/dl (74-100); Potassium 4.4 mmoL/L (3.5-5.1); Sodium 142 mmol/L (136-145)
== END ==
LOC: LAB.DROPOF 16:53 → LAB 16:53
PROVIDERS: Visit Provider Internal Medicine Cardiovascular Disease
DX: N18.30 Chronic kidney disease, stage 3 unspecified (principal)
CPT/HCPCS: 36415; 80048

== ENCOUNTER → 2021-02-02 09:54 | Outpatient (CLI) | payer BC, SELFPAY ==
--- NOTE | 2021-02-02 09:56 | US_ITS ---
PROCEDURE: US KIDNEY CLINICAL INDICATION: RENAL CYST LT COMPARISON: US RETROPCM US kidney retroperitoneal comp from 04/16/2018 FINDINGS: The right kidney measures 9.3 x 5.2 by 5.9 cm. There is mild uniform cortical thinning with a renal cortex measuring 0.7 cm. There is no abnormal cystic or solid mass. There is normal vascularity. The spleen appears normal. The left kidney measures 10.2 x 4.8 x 3.6 cm. There is a hypoechoic cystic-appearing lesion upper pole measuring 2.4 x 2.7 by 2.6 cm showing interval increase in size compared to the previous exam. There is a 2nd hypoechoic cystic-appearing lesion mid pole measuring 1.4 by 1.2 x 1.3 cm and this appears to be stable and unchanged from the previous exam there is mild cortical thinning with the renal cortex measuring 0.9 cm. There is no hydronephrosis. There is slightly decreased vascularity of the left kidney when compared to the right IMPRESSION: Bilateral renal cortical thinning persistent cystic lesions left kidney with interval increase in size of the upper pole cyst compared to the earlier study. Dictated by: Dr. Dario Her MD 02/02/2021 12:33 Dr. Dario Her MD in [place] 02/02/2021 12:33
== END ==
PROVIDERS: PCP Family Medicine; Visit Provider Family Medicine
DX: N28.1 Cyst of kidney, acquired (principal)
CPT/HCPCS: 76770

== ENCOUNTER → 2021-03-20 11:12 | Outpatient (CLI) | payer BC, SELFPAY | PROVIDERS: PCP Family Medicine; Visit Provider Nurse Practitioner Family | DX: G47.33 Obstructive sleep apnea (adult) (pediatric) (principal); Z68.41 Body mass index [BMI] 40.0-44.9, adult | CPT/HCPCS: 94762 ==

== ENCOUNTER → 2021-06-08 14:58 | Outpatient (CLI) | payer BC, SELFPAY ==
--- NOTE | 2021-06-08 15:00 | MM_ITS ---
PROCEDURE: MM DIG SCREENING MAMM BI W/CAD Digital Breast Tomosynthesis Included CLINICAL INDICATION: SCREENING There is no personal or family history of breast cancer. COMPARISON: MG DIGMAMMS MAMMOGRAM SCREEN-[employer] N/C from 06/12/2009 MG DMSB DIGITAL MAMM-SCREEN BILATERAL from 06/13/2010 MG DMSB DIGITAL MAMM-SCREEN BILATERAL from 06/17/2011 TECHNIQUE: Standard CC and MLO images and 3D Tomosynthesis was obtained. R2 CAD reviewed. FINDINGS: Mild to moderate diffuse fibroglandular densities are seen throughout both breasts. There are CAD markings bilateral all apparently due to arterial calcification. There is a benign-appearing calcification left breast. There is no new or suspicious lesion in either breast and there are no suspicious microcalcifications. There has been some fatty involution of the breast parenchyma when compared to the previous studies IMPRESSION: Fibrofatty parenchyma with no suspicious lesions seen BI-RAD Category: 2 Benign Finding(s) FOLLOW-UP: 1YR 1 Year Follow-up (A letter has been sent to the patient regarding results of the study.) Dictated by: Dr. Dario Her MD 06/14/2021 15:43 Dr. Dario Her MD in [place] 06/14/2021 15:43
== END ==
PROVIDERS: PCP Family Medicine; Visit Provider Family Medicine
DX: Z12.31 Encounter for screening mammogram for malignant neoplasm of breast (principal)
CPT/HCPCS: 77063; 77067

== ENCOUNTER → 2021-07-26 09:11 | Outpatient (CLI) | payer BC, SELFPAY ==
--- NOTE | 2021-07-26 09:15 | XR_ITS ---
PROCEDURE: XR DEXA AXIAL SKELETON CLINICAL HISTORY: OSTEOPOROSIS COMPARISON: CR DEXAAX XR DEXA axial skeleton from 07/07/2018 FINDINGS: The right hip BMD is 0.637 with a T-score of -1.9. The left hip BMD is 0.679 with a T-score of -1.5. Radius 33 percent density is 0.570 with a T-score of -2.1 Previously the lowest density was in the left femoral neck with a T-score -1.7 IMPRESSION: This patient is considered osteopenic according to the World Health Organization criteria. Bone density is between 10 and 25 percent below young normal. Fracture risk is moderate. Treatment is advised. Based on these results a follow-up exam is recommended in 2 year. Dictated by: Diaz Muniz MD 07/26/2021 16:12 Diaz Muniz MD in [place] 07/26/2021 16:12
== END ==
PROVIDERS: PCP Family Medicine; Visit Provider Internal Medicine Nephrology
DX: M81.0 Age-related osteoporosis without current pathological fracture (principal)
CPT/HCPCS: 77080

== ENCOUNTER → 2021-07-30 16:28 | Outpatient (CLI) | payer BC, SELFPAY ==
[2021-07-30 17:54] LABS: Albumin Level 4.4 g/dl (3.5-5.0); Anion Gap 12.6 mEq/L (5-15); Blood Urea Nitrogen 34 mg/dl (7-17); Calcium 10.3 mg/dl (8.4-10.2); Carbon Dioxide 34 mmol/L (22.0-30.0); Chloride 100 mmol/L (98-107); Estimated Glomerular Filt Rate 32 ml/min (>60); GFR (African American) 39 ML/MIN (>60); Glucose 74 mg/dl (74-100); Phosphorous 3.3 mg/dl (2.5-4.5); Potassium 4.6 mmoL/L (3.5-5.1); Sodium 142 mmol/L (136-145)
[2021-07-30 18:06] LABS: Intact Parathyroid Hormone 119.7 pg/mL (7.5-53.5)
[2021-07-30 18:10] LABS: 25-OH Vitamin D, Total 66.9 ng/mL (30-100)
[2021-07-30 19:13] LABS: Microalbumin < 6.000 mg/L (0-16.7)
[2021-07-30 20:36] LABS: Creatinine,Urine Random 97 mg/dL (Not Estab.)
[2021-08-01 16:12] LABS: Calcium, Ionized 5.8 mg/dL (4.5-5.6)
[2021-08-03 11:15] LABS: Tandem-R Ostase 9.2 ug/L (.)
[2021-10-24 09:34] LABS: C-Telopeptide Serum 0.4
== END ==
PROVIDERS: Visit Provider Internal Medicine Nephrology
DX: N18.30 Chronic kidney disease, stage 3 unspecified (principal)
CPT/HCPCS: 36415; 80069; 82043; 82306; 82330; 82523; 82570; 83970; 84080

== ENCOUNTER → 2021-08-13 12:59 | Outpatient (POV) | payer BC, SELFPAY | PROVIDERS: Visit Provider Internal Medicine Nephrology | DX: Z00.00 Encounter for general adult medical examination without abnormal findings (principal) ==

== ENCOUNTER → 2021-08-21 10:00 | Outpatient (POV) | payer BC, SELFPAY | PROVIDERS: Visit Provider Dermatology | DX: Z00.00 Encounter for general adult medical examination without abnormal findings (principal) ==

== ENCOUNTER → 2021-10-29 14:06 | Outpatient (CLI) | payer BC, SELFPAY ==
--- NOTE | 2021-10-29 14:08 | US_ITS ---
FINAL REPORT TECHNIQUE: Ultrasound images of the kidneys and bladder were obtained. CLINICAL HISTORY: renal cyst f/u COMPARISON: February 02, 2021 FINDINGS: The right kidney measures 9.7 cm in length. It is normal in echogenicity. There is no hydronephrosis. The left kidney measures 10.2 cm in length. There is a 3 cm cyst in the upper pole of the left kidney, previously 2.7 cm. There is a 2 cm cyst in the mid left kidney, previously 1.3 cm. There is no hydronephrosis. IMPRESSION: Interval increase in size of left renal cysts. Reviewed, Interpreted and Dictated by Cliff Ngo III, MD Transcribed by MIGUEL ÁNGEL Russell Authenticated by Cliff Ngo III, MD on 11/08/2021 02:03:05 PM [facility]
== END ==
PROVIDERS: PCP Family Medicine; Visit Provider Urology
DX: N28.1 Cyst of kidney, acquired (principal)
CPT/HCPCS: 76770

== ENCOUNTER → 2021-12-04 14:13 | Outpatient (CLI) | payer BC, SELFPAY ==
[2021-12-04 14:49] LABS: Basophils # 0.1 K/mm3 (0-0.2); Basophils % 0.9 % (0.1-2.0); Eosinophils # 0.3 K/mm3 (0.0-0.4); Eosinophils % 2.8 % (0.1-12.0); Hematocrit 40.1 % (37.0-47.0); Hemoglobin 13.2 g/dL (12.2-16.2); Lymphocytes # 3.7 K/mm3 (0.7-4.5); Lymphocytes % 33.6 % (10-50); Mean Corpuscular HGB Conc 32.9 g/dL (31.8-35.4); Mean Corpuscular Hemoglobin 29.5 pg (27.0-31.2); Mean Corpuscular Volume 89.8 fl (81-99); Mean Platelet Volume 8.5 fl (7.4-10.4); Monocytes # 0.5 K/mm3 (0.1-1.0); Monocytes % 4.1 % (1.7-9.3); Neutrophils # 6.5 K/mm3 (1.8-7.8); Neutrophils % 58.5 % (37.0-80.0); Platelet Count 252 K/mm3 (142-424); Red Blood Count 4.47 M/mm3 (4.20-5.40); Red Cell Distribution Width 15.8 % (11.5-17.5); White Blood Count 11.1 K/mm3 (4.8-10.8)
[2021-12-04 15:48] LABS: Alanine Aminotransferase 31 U/L (12-78); Albumin Level 4.3 g/dl (3.5-5.0); Alkaline Phosphatase 88 U/L (38-126); Anion Gap 13.4 mEq/L (5-15); Aspartate Amino Transferase 28 U/L (14-36); Bilirubin,Direct 0.2 mg/dl (0.0-0.4); Bilirubin,Indirect 0.3 mg/dL (0.0-0.9); Bilirubin,Total 0.5 mg/dl (0.2-1.3); Bilirubin,Unconjugated 0.3 mg/dL (0.0-1.1); Blood Urea Nitrogen 31 mg/dl (7-17); Calcium 9.6 mg/dl (8.4-10.2); Carbon Dioxide 28 mmol/L (22.0-30.0); Chloride 106 mmol/L (98-107); Chol/HDL Ratio 7.5 (1-3.5); Cholesterol 158 mg/dl (140-200); Estimated Glomerular Filt Rate 32 ml/min (>60); GFR (African American) 39 ML/MIN (>60); Glucose 161 mg/dl (74-100); HDL Cholesterol 21 mg/dl (40-60); Potassium 4.4 mmoL/L (3.5-5.1); Sodium 143 mmol/L (136-145); Total Protein,Serum 6.8 g/dl (6.3-8.2)
[2021-12-04 15:59] LABS: Direct LDL Cholesterol 62.97 mg/dL (100-129)
[2021-12-04 16:05] LABS: Free T4 (Free Thyroxine) 0.83 ng/dl (0.78-2.19)
[2021-12-04 16:26] LABS: Triglycerides 597 mg/dl (30-150)
== END ==
PROVIDERS: Visit Provider Physician Assistant
DX: R06.00 Dyspnea, unspecified (principal); I20.9 Angina pectoris, unspecified; I10 Essential (primary) hypertension; I45.10 Unspecified right bundle-branch block; E11.9 Type 2 diabetes mellitus without complications; E78.5 Hyperlipidemia, unspecified; I70.1 Atherosclerosis of renal artery; I77.9 Disorder of arteries and arterioles, unspecified; R60.9 Edema, unspecified; G47.33 Obstructive sleep apnea (adult) (pediatric); Z95.0 Presence of cardiac pacemaker; Z98.890 Other specified postprocedural states; Z79.4 Long term (current) use of insulin
CPT/HCPCS: 36415; 80048; 80061; 80076; 84439; 84443; 85025

== ENCOUNTER → 2021-12-11 14:00 | Outpatient (CLI) | payer BC, SELFPAY ==
--- NOTE | 2021-12-11 14:08 | XR_ITS ---
FINAL REPORT CLINICAL HISTORY: LT ANKLE SWELLING AND PAIN X 1 WEEK NKI FINDINGS: LEFT ANKLE Three views of the left ankle were obtained. There is no acute fracture or dislocation. There are mild degenerative changes. There is a chronic calcification inferior to the lateral malleolus. There are calcaneal spurs. There is no soft tissue abnormality. IMPRESSION: Mild degenerative change without acute bony abnormality. Reviewed, Interpreted and Dictated by Cliff Ngo III, MD Transcribed by Arline Hall Authenticated by Cliff Ngo III, MD on 12/11/2021 03:04:23 PM [facility]
--- NOTE | 2021-12-11 14:08 | XR_ITS ---
FINAL REPORT CLINICAL HISTORY: LT KNEE PAIN X 1 WEEK NKI FINDINGS: LEFT KNEE Three views of the left knee reveal no evidence of fracture or dislocation. The bony alignment is normal. There are mild degenerative changes. There is no evidence of joint effusion. No localized soft tissue abnormality is seen. IMPRESSION: Mild degenerative change without acute bony abnormality. Reviewed, Interpreted and Dictated by Cliff Ngo III, MD Transcribed by Arline Hall Authenticated by Cliff Ngo III, MD on 12/11/2021 03:03:59 PM [facility]
== END ==
PROVIDERS: PCP Nurse Practitioner Family; Visit Provider Nurse Practitioner Family
DX: M25.562 Pain in left knee (principal); M25.472 Effusion, left ankle
CPT/HCPCS: 73562; 73610

== ENCOUNTER → 2022-02-04 09:28 | Outpatient (CLI) | payer BC, SELFPAY ==
[2022-02-04 10:21] LABS: Albumin Level 3.8 g/dl (3.5-5.0); Anion Gap 12.2 mEq/L (5-15); Blood Urea Nitrogen 42 mg/dl (7-17); Carbon Dioxide 31 mmol/L (22.0-30.0); Chloride 104 mmol/L (98-107); Estimated Glomerular Filt Rate 32 ml/min (>60); GFR (African American) 39 ML/MIN (>60); Glucose 104 mg/dl (74-100); Phosphorous 3.1 mg/dl (2.5-4.5); Potassium 4.2 mmoL/L (3.5-5.1); Sodium 143 mmol/L (136-145)
[2022-02-04 10:31] LABS: Intact Parathyroid Hormone 191.8 pg/mL (7.5-53.5)
[2022-02-04 10:37] LABS: 25-OH Vitamin D, Total 57.4 ng/mL (30-100)
[2022-02-08 16:20] LABS: 1,25 Dihydroxy Vitamin D 52 pg/mL (.); 1,25-Dihydroxy, Vitamin D-2 <10 pg/mL (.); 1,25-Dihydroxy, Vitamin D-3 52 pg/mL (.)
== END ==
PROVIDERS: PCP Family Medicine; Visit Provider Internal Medicine Nephrology
DX: N18.32 Chronic kidney disease, stage 3b (principal)
CPT/HCPCS: 36415; 80069; 82306; 82652; 83970

== ENCOUNTER → 2022-02-11 11:46 | Outpatient (POV) | payer BC, SELFPAY | PROVIDERS: Visit Provider Internal Medicine Nephrology | DX: Z00.00 Encounter for general adult medical examination without abnormal findings (principal) ==

== ENCOUNTER 2022-04-08 20:09 | Emergency (ER) | payer BC, MEDICARE, SELFPAY ==
--- NOTE | 2022-04-08 20:07 | ECG_ITS ---
APPROVED REPORT Exam: Resting ECG HR:75 bpm ECG Measurements Heart Rate 75 AXES ID 136 P 66 QRSd 146 QRS 91 QT 428 T 6 QTc 458 Conclusion SINUS RHYTHM BORDERLINE RIGHT AXIS DEVIATION [QRS AXIS > 90] INTRAVENTRICULAR CONDUCTION DELAY [130+ ms QRS DURATION] ABNORMAL ECG UNCONFIRMED REPORT Electronically signed by : Boyd Laureano MD 04/10/2022 21:05:42
--- NOTE | 2022-04-08 20:10 | XR_ITS ---
PROCEDURE INFORMATION: Exam: XR Chest Exam date and time: 04/08/2022 8:23 PM Age: 66 years old Clinical indication: Sternal or substernal pain; Prior surgery; Surgery date: 6+ months; Surgery type: Pacemaker placed; Additional info: Chest pain TECHNIQUE: Imaging protocol: Radiologic exam of the chest. Views: 1 view. COMPARISON: CR CXR CHEST(2 VIEWS-NOT PORTABLE) 07/07/2017 9:26 PM FINDINGS: Tubes, catheters and devices: Transvenous pacemaker leads in the heart Lungs: Discoid atelectasis in the left base Pleural spaces: Unremarkable. No pleural effusion. No pneumothorax. Heart/Mediastinum: Stable cardiac silhouette Diaphragm: Elevated hemidiaphragms bilaterally Bones/joints: Stable Internal fixation device in the thoracolumbar junction IMPRESSION: No acute process
--- NOTE | 2022-04-08 20:14 | HMH.EDGENADL ---
ED Disposition Clinical Impression: Chest pain Qualifiers: Chest pain type: other chest pain Qualified Code(s): R07.89 - Other chest pain Disposition: Home, Self-Care Condition on Discharge: Fair Instructions: DI for Chest Pain Additional Instructions: You have been evaluated for chest pain, does not appear to be cardiac ischemic disease. It is very important that you follow-up with cardiology. You may need to have a repeat echocardiogram. Your most recent cardiac catheterization was quite reassuring, only showed mild coronary artery disease. Please monitor your symptoms closely. Take all medications as prescribed. Return to the emergency department at once for any new or worsening symptoms. Referrals: Perry Askew MD [Primary Care Provider] - Time of Disposition: 23:01 - Critical Care Critical Care Time: No Attestation: On 04/08/22, the high probability of a clinically significant, sudden or life threatening deterioration of the following system(s) required my full and direct attention, intervention and personal management. The time I documented below is in addition to time spent performing reported procedures but includes the following listed in this critical care notation. Medical Decision Making - Medical Records Medical records reviewed: Yes: I reviewed the patient's medical records. - Jason Inquiry Pt receiving controlled substance: No Vital Signs: 04/08/22 20:15 04/08/22 20:30 04/08/22 21:00 Temperature 98.9 F Temperature Source Oral Pulse Rate 71 70 Pulse Rate [Apical] 73 Respiratory Rate 18 17 24 Blood Pressure 138/69 119/65 Blood Pressure [Right Arm] 164/92 H Blood Pressure Mean Blood Pressure Mean [Right Arm] 116 Blood Pressure Source [Right Arm] Automatic Cuff Blood Pressure Position [Right Arm] Sitting 02 Sat by Pulse Oximetry 97 93 L 92 L Oxygen Delivery Method Room Air Room Air Room Air 04/08/22 21:30 04/08/22 22:00 04/08/22 22:30 Temperature Temperature Source Pulse Rate 71 71 Pulse Rate [Apical] Respiratory Rate 19 20 17 Blood Pressure 117/69 131/66 111/64 Blood Pressure [Right Arm] Blood Pressure Mean 87 Blood Pressure Mean [Right Arm] Blood Pressure Source [Right Arm] Blood Pressure Position [Right Arm] 02 Sat by Pulse Oximetry 95 94 L 94 L Oxygen Delivery Method Room Air Room Air Room Air - Lab Data Lab Results 04/08/22 20:10: WBC 14.4 H, RBC 4.50, Hgb 13.0, Hct 41.4, MCV 92.1, MCH 28.8, MCHC 31.3 L, RDW 15.5, Plt Count 265, MPV 8.2, Neut % (Auto) 58.2, Lymph % (Auto) 32.2, [place] % (Auto) 6.1, Eos % (Auto) 2.5, Baso % (Auto) 1.0, Neut # (Auto) 8.4 H, Lymph # (Auto) 4.7 H, [place] # (Auto) 0.9, Eos # (Auto) 0.4, Baso # (Auto) 0.2 04/08/22 20:10: Sodium 146 H, Potassium 4.1, Chloride 106, Carbon Dioxide 32 H, Anion Gap 12.1, BUN 40 H, Creatinine 1.80 H, Estimated Creat Clear 27, Estimated GFR 28 L, Est GFR ( Amer) 34 L, Glucose 115 H, Calcium 10.2, Troponin I < 0.01 04/08/22 21:51: SARS-CoV-2 (PCR) Not detected, Influenza A Untype (PCR) Not detected, Influenza Type B (PCR) Not detected 04/08/22 21:58: Troponin I < 0.01 04/08/22 23:46: VBG pH 7.31, VBG pCO2 60.1 H, VBG pO2 40.6 H, VBG HCO3 29.7, VBG Total CO2 31.6 H, VBG O2 Saturation 73.4 H, VBG Base Excess 3.5 H Result diagrams: 04/08/22 20:10 04/08/22 20:10 Orders (Tests/Meds): ED MEDICATIONS Generic Name Dose Route Start Last Admin Trade Name Freq PRN Reason Stop Dose Admin Nitroglycerin 0.4 mg 04/08/22 20:10 04/08/22 20:10 Nitroglycerin 0.4mg Sl Tablet SL 04/09/22 20:10 0.4 mg Q5MINP PRN Administration Chest Pain Discontinued Medications Generic Name Dose Route Start Last Admin Trade Name Freq PRN Reason Stop Dose Admin Aspirin 324 mg 04/08/22 20:10 04/08/22 20:10 Aspirin 81mg Chewable Tablet PO 04/08/22 20:11 324 mg ONCE ONE Administration ORDERS Category Date Time Status Troponin I Q3H Lab 04/09/22 02:15 Ordered E
[2022-04-08 20:15] VITALS: BP 164/92; PULSE 73; RESP 18; TEMP 37.2; O2SAT 97; BMI 44.6
--- NOTE | 2022-04-08 20:16 | PC.NURSE ---
RAD at BS for XRAY
[2022-04-08 20:29] LABS: Chloride 106 mmol/L (98-107); Sodium 146 mmol/L (136-145)
[2022-04-08 20:30] VITALS: BP 138/69; PULSE 71; RESP 17; O2SAT 93
[2022-04-08 20:30] LABS: Potassium 4.1 mmoL/L (3.5-5.1)
[2022-04-08 20:33] LABS: Anion Gap 12.1 mEq/L (5-15); Basophils # 0.2 K/mm3 (0-0.2); Blood Urea Nitrogen 40 mg/dl (7-17); Calcium 10.2 mg/dl (8.4-10.2); Carbon Dioxide 32 mmol/L (22.0-30.0); Creatinine Clearance Estimated 27 mL/min (50-200); Eosinophils # 0.4 K/mm3 (0.0-0.4); Eosinophils % 2.5 % (0.1-12.0); Estimated Glomerular Filt Rate 28 ml/min (>60); GFR (African American) 34 ML/MIN (>60); Glucose 115 mg/dl (74-100); Hematocrit 41.4 % (37.0-47.0); Lymphocytes # 4.7 K/mm3 (0.7-4.5); Lymphocytes % 32.2 % (10-50); Mean Corpuscular HGB Conc 31.3 g/dL (31.8-35.4); Mean Corpuscular Hemoglobin 28.8 pg (27.0-31.2); Mean Corpuscular Volume 92.1 fl (81-99); Mean Platelet Volume 8.2 fl (7.4-10.4); Monocytes # 0.9 K/mm3 (0.1-1.0); Monocytes % 6.1 % (1.7-9.3); Neutrophils # 8.4 K/mm3 (1.8-7.8); Neutrophils % 58.2 % (37.0-80.0); Platelet Count 265 K/mm3 (142-424); Red Cell Distribution Width 15.5 % (11.5-17.5); White Blood Count 14.4 K/mm3 (4.8-10.8)
--- NOTE | 2022-04-08 20:34 | PC.NURSE ---
Medication wll not scan off due to computer glitch. 324 mg asa given at 2034 and 0.4mg of nitro given at 2034.
[2022-04-08 21:00] VITALS: BP 119/65; PULSE 70; RESP 24; O2SAT 92
[2022-04-08 21:01] LABS: Troponin I < 0.01 ng/ml (0.00-0.034)
[2022-04-08 21:30] VITALS: BP 117/69; PULSE 71; RESP 19; O2SAT 95
[2022-04-08 22:00] VITALS: BP 131/66; PULSE 71; RESP 20; O2SAT 94
--- NOTE | 2022-04-08 22:01 | PC.NURSE ---
Second Trop drawn per Leticia Lizarraga. Pt had no needs or complaints at this time.
[2022-04-08 22:06] LABS: Coronavirus 19, PCR Not Detected (NotDetected); Influenza A, PCR Not Detected (NotDetected); Influenza B, PCR Not Detected (NotDetected)
[2022-04-08 22:30] VITALS: BP 111/64; RESP 17; O2SAT 94
[2022-04-08 22:46] LABS: Troponin I < 0.01 ng/ml (0.00-0.034)
--- NOTE | 2022-04-08 22:53 | PC.NURSE ---
at BS speaking with pt
--- NOTE | 2022-04-08 23:32 | ECG_ITS ---
APPROVED REPORT Exam: Resting ECG HR:72 bpm ECG Measurements Heart Rate 72 AXES OK 188 P -49 QRSd 148 QRS 88 QT 445 T 10 QTc 469 Conclusion ELECTRONIC ATRIAL PACEMAKER ABNORMAL ECG UNCONFIRMED REPORT Electronically signed by : Boyd Laureano MD 04/10/2022 21:05:16
--- NOTE | 2022-04-08 23:36 | PC.NURSE ---
Notified RT of VBG
[2022-04-08 23:51] LABS: VBG Base Excess 3.5 mmol/L (-2.4-2.3); VBG HCO3 29.7 mmol/L (23-30); VBG Oxygen Saturation 73.4 % (50-70); VBG PH 7.31 mmol/L (7.31-7.41); VBG PO2 40.6 mmol/L (28-40); VBG Total CO2 31.6 mmol/L (23-27)
[2022-04-08 23:53] LABS: VBG PCO2 60.1 mmol/L (35-51)
[2022-04-09 00:01] VITALS: BP 111/64; PULSE 71; RESP 18; TEMP 36.6; O2SAT 94
== END 2022-04-09 00:08 | disposition home or self-care (01) ==
PROVIDERS: Emergency Provider Emergency Medicine; PCP Family Medicine
DX: R07.89 Other chest pain (principal); I10 Essential (primary) hypertension; Z95.0 Presence of cardiac pacemaker; I25.10 Atherosclerotic heart disease of native coronary artery without angina pectoris; E11.9 Type 2 diabetes mellitus without complications; Z79.4 Long term (current) use of insulin
CPT/HCPCS: 71045; 80048; 82803; 84484; 85025; 93005; 99284; C9803; U0003; U0005

== ENCOUNTER → 2022-06-04 16:27 | Outpatient (CLI) | payer BC, SELFPAY ==
[2022-06-04 17:19] LABS: Anion Gap 15.8 mEq/L (5-15); Blood Urea Nitrogen 51 mg/dl (7-17); Calcium 9.6 mg/dl (8.4-10.2); Carbon Dioxide 35 mmol/L (22.0-30.0); Chloride 93 mmol/L (98-107); Estimated Glomerular Filt Rate 28 ml/min (>60); GFR (African American) 34 ML/MIN (>60); Glucose 63 mg/dl (74-100); Potassium 4.8 mmoL/L (3.5-5.1); Sodium 139 mmol/L (136-145)
[2022-06-04 17:28] LABS: NT Pro Brain Natriuretic Pep. 118 pg/mL (0-125)
== END ==
PROVIDERS: PCP Family Medicine; Visit Provider Physician Assistant
DX: R06.09 Other forms of dyspnea (principal); I25.10 Atherosclerotic heart disease of native coronary artery without angina pectoris; I10 Essential (primary) hypertension; I27.20 Pulmonary hypertension, unspecified; I45.10 Unspecified right bundle-branch block; I50.9 Heart failure, unspecified; E78.2 Mixed hyperlipidemia; I65.23 Occlusion and stenosis of bilateral carotid arteries; I70.1 Atherosclerosis of renal artery; E11.9 Type 2 diabetes mellitus without complications; G47.33 Obstructive sleep apnea (adult) (pediatric); Z79.4 Long term (current) use of insulin; Z95.0 Presence of cardiac pacemaker; Z98.890 Other specified postprocedural states
CPT/HCPCS: 36415; 80048; 83880

== ENCOUNTER → 2022-06-05 12:42 | Outpatient (CLI) | payer BC, SELFPAY | PROVIDERS: PCP Family Medicine; Visit Provider Physician Assistant | DX: R06.02 Shortness of breath (principal) ==

== ENCOUNTER → 2022-06-10 14:47 | Outpatient (CLI) | payer BC, SELFPAY ==
[2022-06-10 15:30] VITALS: PULSE 70; PULSE 75
[2022-06-10 16:10] VITALS: BP 155/74; PULSE 83; RESP 24; O2SAT 98
[2022-06-10 16:24] VITALS: BP 133/75; PULSE 72; RESP 16; O2SAT 96
== END ==
PROVIDERS: PCP Family Medicine; Visit Provider Specialist
DX: R06.09 Other forms of dyspnea (principal)
CPT/HCPCS: 94060; 94618; 94640; 94727; 94729

== ENCOUNTER → 2022-06-14 09:26 | Outpatient (CLI) | payer BC, SELFPAY ==
--- NOTE | 2022-06-14 09:26 | CT_ITS ---
FINAL REPORT TECHNIQUE: Axial CT images were performed from the lung apices through the upper abdomen. Coronal reformats were submitted. This study was performed with techniques to keep radiation doses as low as reasonably achievable (ALARA). Individualized dose reduction techniques using automated exposure control or adjustment of mA and/or kV according to the patient's size were employed. CLINICAL HISTORY: SOA/SHERMAN, change in voice character FINDINGS: The left thyroid lobe is enlarged with a component extending substernally. There is mild deviation of the trachea to the right. There is no axillary adenopathy. There is no hilar or mediastinal mass or adenopathy. Heart size is normal. A left subclavian pacemaker is present. There is no pericardial or pleural effusion. Limited images of the upper abdomen demonstrate surgical clips in the right upper quadrant consistent with cholecystectomy. There is a less than 1 cm mass in the upper pole of the right kidney which does not appear to be a simple cyst and is favored to represent a complex cyst. There is questionable abnormal morphology of the upper pole of the left kidney. No suspicious infiltrate or nodule is identified on lung window images. IMPRESSION: Enlarged left thyroid lobe which extends substernally causing mild deviation of the trachea to the right. Mass in the upper pole of the right kidney is favored to represent a complex cyst with questionable abnormal morphology of the upper pole of the left kidney. If indicated, renal mass protocol CT may be helpful. Reviewed, Interpreted and Dictated by Cliff Ngo III, MD Transcribed by Ria Singletary Authenticated and [facility]
== END ==
PROVIDERS: PCP Family Medicine; Visit Provider Physician Assistant
DX: R06.09 Other forms of dyspnea (principal); R49.9 Unspecified voice and resonance disorder; G47.33 Obstructive sleep apnea (adult) (pediatric)
CPT/HCPCS: 71250

== ENCOUNTER → 2022-06-20 15:45 | Outpatient (CLI) | payer BC, SELFPAY ==
[2022-06-20 16:05] LABS: Basophils # 0.1 K/mm3 (0-0.2); Eosinophils # 0.5 K/mm3 (0.0-0.4); Eosinophils % 3.6 % (0.1-12.0); Hematocrit 40.6 % (37.0-47.0); Hemoglobin 13.4 g/dL (12.2-16.2); Lymphocytes # 4.8 K/mm3 (0.7-4.5); Lymphocytes % 34.9 % (10-50); Mean Corpuscular HGB Conc 32.9 g/dL (31.8-35.4); Mean Corpuscular Hemoglobin 29.5 pg (27.0-31.2); Mean Corpuscular Volume 89.7 fl (81-99); Mean Platelet Volume 7.9 fl (7.4-10.4); Monocytes # 0.6 K/mm3 (0.1-1.0); Monocytes % 4.6 % (1.7-9.3); Neutrophils # 7.7 K/mm3 (1.8-7.8); Neutrophils % 55.8 % (37.0-80.0); Platelet Count 320 K/mm3 (142-424); Red Blood Count 4.53 M/mm3 (4.20-5.40); Red Cell Distribution Width 15.4 % (11.5-17.5); White Blood Count 13.7 K/mm3 (4.8-10.8)
[2022-06-30 13:12] LABS: D001-IgE D pteronyssinus <0.10 kU/L (Class 0); D002-IgE D farinae <0.10 kU/L (Class 0); E001-IgE Cat Dander <0.10 kU/L (Class 0); E005-IgE Dog Dander <0.10 kU/L (Class 0); E072-IgE Mouse Urine <0.10 kU/L (Class 0); G002-IgE Bermuda Grass <0.10 kU/L (Class 0); G006-IgE Timothy Grass <0.10 kU/L (Class 0); I006-IgE Cockroach, German <0.10 kU/L (Class 0); Immunoglobulin E, Total 20 IU/mL (6-495); M001-IgE Penicillium chrysogen <0.10 kU/L (Class 0); M002-IgE Cladosporium herbarum <0.10 kU/L (Class 0); M003-IgE Aspergillus fumigatus <0.10 kU/L (Class 0); M006-IgE Alternaria alternata <0.10 kU/L (Class 0); T001-IgE Maple/Box Elder <0.10 kU/L (Class 0); T003-IgE Common Silver Birch <0.10 kU/L (Class 0); T006-IgE Cedar, Mountain <0.10 kU/L (Class 0); T007-IgE Oak, White <0.10 kU/L (Class 0); T008-IgE Elm, American <0.10 kU/L (Class 0); T010-IgE Walnut <0.10 kU/L (Class 0); T011-IgE Maple Leaf Sycamore <0.10 kU/L (Class 0); T014-IgE Cottonwood <0.10 kU/L (Class 0); T015-IgE Ash, White <0.10 kU/L (Class 0); T022-IgE Pecan, Hickory <0.10 kU/L (Class 0); T070-IgE White Mulberry <0.10 kU/L (Class 0); W001-IgE Ragweed, Short <0.10 kU/L (Class 0); W011-IgE Thistle, Russian <0.10 kU/L (Class 0); W014-IgE Pigweed, Common <0.10 kU/L (Class 0); W018-IgE Sheep Sorrel <0.10 kU/L (Class 0)
== END ==
PROVIDERS: PCP Family Medicine; Visit Provider Internal Medicine Pulmonary Disease
DX: J45.909 Unspecified asthma, uncomplicated (principal)
CPT/HCPCS: 36415; 82785; 85025; 86003

== ENCOUNTER → 2022-07-09 07:31 | Outpatient (CLI) | payer BC, SELFPAY ==
--- NOTE | 2022-07-09 07:32 | CA_ITS ---
FINAL REPORT TECHNIQUE: Grayscale, color Doppler and duplex Doppler ultrasound of the kidneys, aorta and renal arteries was performed. Multiple velocities were measured. CLINICAL HISTORY: Hx- LRA stent 2017. follow up bilateral cystic lesion FINDINGS: Aorta velocity: 103 cm/sec Right kidney: 9.8 cm. No evidence of hydronephrosis or mass. Right intrarenal RI: .70 Right renal artery velocity: 156 cm/sec. Right RAR (Renal artery-Aortic Ratio): 1.51 Left Kidney: 10.8 cm. There is no evidence of hydronephrosis. There are several cysts, largest measures 3.5 cm. Left intrarenal RI: .76 Left renal artery velocity: 155 cm/sec. Left RAR (Renal Artery-Aortic Ratio): 1.5 IMPRESSION: No evidence of significant renal artery stenosis. Left renal cysts. CT angiogram or postcontrast MR angiogram would be more sensitive for evaluation of possible renal artery stenosis. Reviewed, Interpreted and Dictated by Cliff Ngo III, MD Transcribed by Luly Evans Authenticated and [facility]
== END ==
PROVIDERS: PCP Family Medicine; Visit Provider Family Medicine
DX: N28.9 Disorder of kidney and ureter, unspecified (principal)
CPT/HCPCS: 93976

== ENCOUNTER → 2022-08-19 14:38 | Outpatient (CLI) | payer BC, SELFPAY ==
--- NOTE | 2022-08-19 14:42 | MM_ITS ---
PROCEDURE INFORMATION: Exam: MG Bilateral Screening 3D Mammography Exam date and time: 08/19/2022 2:48 PM Age: 67 years old Clinical indication: Screening examination TECHNIQUE: Imaging protocol: Bilateral Screening tomosynthesis and 2D mammography including computer-aided detection (CAD) when performed. COMPARISON: 1. MG MM DIG SCREENING MAMM BI W/CAD 06/08/2021 3:19 PM 2. MG DMSB DIGITAL MAMM-SCREEN BILATERAL 06/17/2011 10:15 AM 3. MG DMSB DIGITAL MAMM-SCREEN BILATERAL 06/13/2010 10:31 AM FINDINGS: MAMMOGRAPHY: Breast composition: The breasts are heterogeneously dense, which may obscure small masses. Mass: No suspicious masses. Architectural distortion: No suspicious distortion. Calcifications: No suspicious calcifications. Asymmetric density: None. Skin thickening: None. Axillary adenopathy: None. IMPRESSION: No mammographic evidence of malignancy. Annual screening is recommended unless otherwise clinically indicated. ASSESSMENT: BI-RADS Category 1: Negative
== END ==
PROVIDERS: PCP Nurse Practitioner Family; Visit Provider Family Medicine
DX: Z12.31 Encounter for screening mammogram for malignant neoplasm of breast (principal)
CPT/HCPCS: 77063; 77067

== ENCOUNTER → 2022-09-04 15:48 | Outpatient (CLI) | payer BC, SELFPAY ==
[2022-09-04 17:36] LABS: Chloride 102 mmol/L (98-107); Potassium 5.3 mmoL/L (3.5-5.1); Sodium 143 mmol/L (136-145)
[2022-09-04 17:39] LABS: Anion Gap 17.3 mEq/L (5-15); Blood Urea Nitrogen 45 mg/dl (7-17); Carbon Dioxide 29 mmol/L (22.0-30.0); Estimated Glomerular Filt Rate 32 ml/min (>60); GFR (African American) 39 ML/MIN (>60); Glucose 121 mg/dl (74-100)
[2022-09-04 17:40] LABS: Calcium 9.9 mg/dl (8.4-10.2)
== END ==
PROVIDERS: Nurse Practitioner; PCP Family Medicine; Visit Provider Physician Assistant
DX: I25.10 Atherosclerotic heart disease of native coronary artery without angina pectoris (principal); I10 Essential (primary) hypertension; I70.1 Atherosclerosis of renal artery; E78.2 Mixed hyperlipidemia; Z95.0 Presence of cardiac pacemaker
CPT/HCPCS: 36415; 80048

== ENCOUNTER → 2022-09-09 15:20 | Outpatient (CLI) | payer BC, SELFPAY ==
[2022-09-09 16:25] LABS: Anion Gap 12.2 mEq/L (5-15); Blood Urea Nitrogen 40 mg/dl (7-17); Calcium 9.6 mg/dl (8.4-10.2); Carbon Dioxide 30 mmol/L (22.0-30.0); Chloride 103 mmol/L (98-107); Estimated Glomerular Filt Rate 28 ml/min (>60); GFR (African American) 34 ML/MIN (>60); Glucose 96 mg/dl (74-100); Potassium 4.2 mmoL/L (3.5-5.1); Sodium 141 mmol/L (136-145)
== END ==
PROVIDERS: PCP Family Medicine; Visit Provider Nurse Practitioner Family
DX: E87.5 Hyperkalemia (principal)
CPT/HCPCS: 36415; 80048

== ENCOUNTER → 2022-10-01 16:21 | Outpatient (CLI) | payer BC, SELFPAY ==
[2022-10-01 16:28] LABS: Microscopic, Urine URINE MICROSCOPIC (MICROSCOPIC)
[2022-10-01 17:59] LABS: Basophils # 0.1 K/mm3 (0-0.2); Basophils % 0.7 % (0.1-2.0); Eosinophils # 0.3 K/mm3 (0.0-0.4); Eosinophils % 2.3 % (0.1-12.0); Hemoglobin 13.5 g/dL (12.2-16.2); Lymphocytes # 4.5 K/mm3 (0.7-4.5); Lymphocytes % 36.3 % (10-50); Mean Corpuscular HGB Conc 33.7 g/dL (31.8-35.4); Mean Corpuscular Hemoglobin 30.1 pg (27.0-31.2); Mean Corpuscular Volume 89.3 fl (81-99); Mean Platelet Volume 8.4 fl (7.4-10.4); Monocytes # 0.7 K/mm3 (0.1-1.0); Monocytes % 5.4 % (1.7-9.3); Neutrophils # 6.9 K/mm3 (1.8-7.8); Neutrophils % 55.2 % (37.0-80.0); Platelet Count 277 K/mm3 (142-424); Red Blood Count 4.48 M/mm3 (4.20-5.40); Red Cell Distribution Width 15.2 % (11.5-17.5); White Blood Count 12.4 K/mm3 (4.8-10.8)
[2022-10-01 18:08] LABS: Appearance,Urine CLEAR (Clear); Bilirubin,Urine Negative (Negative); Blood, Urine Negative (Negative); Color,Urine YELLOW (Yellow); Glucose,Urine (UA) Negative (Negative); Ketones,Urine Negative (Negative); Leukocyte Esterase,Urine 1+ (Negative); Nitrate,Urine Negative (Negative); PH,Urine 7.5 (5.0-8.5); Protein,Urine Negative (Negative); Urobilinogen,Urine 0.2 EU/dl (0.2)
[2022-10-01 19:04] LABS: Albumin Level 4.3 g/dl (3.5-5.0); Anion Gap 13.4 mEq/L (5-15); Blood Urea Nitrogen 38 mg/dl (7-17); Calcium 9.6 mg/dl (8.4-10.2); Carbon Dioxide 34 mmol/L (22.0-30.0); Chloride 100 mmol/L (98-107); Estimated Glomerular Filt Rate 32 ml/min (>60); GFR (African American) 39 ML/MIN (>60); Phosphorous 2.9 mg/dl (2.5-4.5); Potassium 4.4 mmoL/L (3.5-5.1); Sodium 143 mmol/L (136-145)
[2022-10-01 19:13] LABS: Intact Parathyroid Hormone 119.7 pg/mL (7.5-53.5)
[2022-10-01 19:15] LABS: Bacteria,Urine Trace /lpf
[2022-10-01 19:18] LABS: 25-OH Vitamin D, Total 43.8 ng/mL (30-100)
[2022-10-01 19:21] LABS: Glucose 48 mg/dl (74-100)
[2022-10-01 19:51] LABS: Creatinine,Urine Random 102 mg/dL (Not Estab.)
== END ==
PROVIDERS: PCP Family Medicine; Visit Provider Internal Medicine Nephrology
DX: N18.32 Chronic kidney disease, stage 3b (principal)
CPT/HCPCS: 36415; 80069; 81001; 82306; 82570; 83970; 84155; 85025; 87086

== ENCOUNTER → 2022-10-07 12:25 | Outpatient (POV) | payer BC, SELFPAY | PROVIDERS: Visit Provider Internal Medicine Nephrology | DX: Z00.00 Encounter for general adult medical examination without abnormal findings (principal) ==

== ENCOUNTER → 2022-12-18 15:46 | Outpatient (CLI) | payer MEDICARE, SELFPAY ==
[2022-12-18 17:01] LABS: Albumin Level 4.1 g/dl (3.5-5.0); Chloride 100 mmol/L (98-107); Potassium 4.6 mmoL/L (3.5-5.1); Sodium 142 mmol/L (136-145)
[2022-12-18 17:03] LABS: Blood Urea Nitrogen 32 mg/dl (7-17); Estimated Glomerular Filt Rate 30 ml/min (>60); GFR (African American) 36 ML/MIN (>60)
[2022-12-18 17:04] LABS: Anion Gap 14.6 mEq/L (5-15); Calcium 9.5 mg/dl (8.4-10.2); Carbon Dioxide 32 mmol/L (22.0-30.0); Glucose 79 mg/dl (74-100); Phosphorous 3.1 mg/dl (2.5-4.5)
== END ==
PROVIDERS: PCP Family Medicine; Visit Provider Internal Medicine Nephrology
DX: N18.32 Chronic kidney disease, stage 3b (principal)
CPT/HCPCS: 36415; 80069

== ENCOUNTER 2022-12-27 10:10 | Emergency (ER) | payer MEDICARE, SELFPAY ==
[2022-12-27 10:25] VITALS: BP 136/66; PULSE 72; RESP 22; TEMP 37.1; O2SAT 94; BMI 44.8
--- NOTE | 2022-12-27 10:36 | EXP.UTC ---
Discharge Plan Disposition Patient Disposition: Home, Self-Care Condition: Good Prescriptions Prescriptions: New amoxicillin-pot clavulanate 875-125 mg tablet 1 tab PO Q12H Qty: 20 0RF moxifloxacin [Vigamox] 0.5 % drops 1 drp ophthalmic (eye) TID 7 Days Qty: 3 0RF No Action aspirin [Adult Low Dose Aspirin] 81 mg tablet,delayed release (DR/EC) 81 mg PO DAILY fluticasone propionate [Flonase Allergy Relief] 50 mcg/actuation spray,suspension 50 mcg intranasal DAILY PRN (Reason: allergies) potassium citrate 10 mEq (1,080 mg) tablet extended release 1,080 mg PO BID Levemir U-100 Insulin 100 unit/mL solution 200 unit SQ QPM omeprazole 40 mg capsule,delayed release(DR/EC) 40 mg PO DAILY Qty: 90 3RF Humalog Mix 75-25(U-100)Insuln 100 unit/mL (75-25) suspension 1 sliding scale dose SQ USEASDIRECTD atorvastatin [Lipitor] 40 mg tablet 10 mg PO DAILY albuterol sulfate 90 mcg/actuation HFA aerosol inhaler 2 inh inhalation Q6H PRN (Reason: shortness of breath or wheezing) 90 Days Qty: 8.5 3RF Advair HFA 230-21 mcg/actuation HFA aerosol inhaler 1 puff inhalation BID 90 Days Qty: 12 3RF losartan 100 mg tablet See Rx Instructions .Route .COMPLEX Qty: 90 3RF Rx Instructions: TAKE 1 TABLET DAILY FOR BLOOD PRESSURE bumetanide 1 mg tablet See Rx Instructions .ROUTE .COMPLEX Qty: 90 1RF Dose Instruction: TAKE 1 TABLET DIRECTED FOR HIGH BLOOD PRESSURE Rx Instructions: TAKE 1 TABLET DIRECTED FOR HIGH BLOOD PRESSURE clonazepam 2 mg tablet,disintegrating 2 mg PO DAILY Qty: 30 3RF allopurinol 100 mg tablet 100 mg PO DAILY Qty: 90 3RF nitrofurantoin macrocrystal 50 mg capsule 50 mg PO BID 90 Days Qty: 180 0RF Rx Instructions: must administer with a meal/food bisoprolol fumarate 10 mg tablet 10 mg PO DAILY Qty: 90 0RF Referrals Follow up/Referrals: Perry Askew MD [Primary Care Provider] - See instructions Activity Restrictions/Add. Instructions Additional Instructions/Restrictions: Warm compresses, take meds as directed Return to ER if symptoms worsen or do not quickly improve Clinical Impressions Clinical Impression: Hordeolum internum of right lower eyelid, Periorbital cellulitis of right eye Discharge ED Provider: Carmencita Luu [facility] HPI General Stated complaint: RT side facial inflammation w/ pain Time Seen by Provider: 12/27/22 10:46 History of Present Illness Provider Complaint: Right eye pain and swelling X 1 week. Now has swelling in eye lid, upper cheekbone. Sligthly tender but not painful. No fever. No blurred vision, vertigo, headache. Crusty upon awakening but not completely closed. Onset (ago): week(s) (1) Location: eyes (right) Relieving factors: none Exacerbating factors: none Treatments prior to arrival: none Related Data Home Medications Medication Instructions Recorded Confirmed aspirin 81 mg tablet,delayed 81 mg PO DAILY heart health 04/28/18 10/09/22 release (Adult Low Dose Aspirin) fluticasone propionate 50 50 mcg intranasal DAILY PRN 08/26/18 10/09/22 mcg/actuation nasal allergies spray,suspension (Flonase Allergy Relief) insulin detemir U-100 100 unit/mL 200 unit SQ QPM DM 04/12/21 10/09/22 subcutaneous solution (Levemir U-100 Insulin) potassium citrate 10 mEq (1,080 1,080 mg PO BID kidney function 02/08/22 10/09/22 mg) tablet,extended release atorvastatin 40 mg tablet (Lipitor) 10 mg PO DAILY hld 06/20/22 10/09/22 insulin lispro protamine-lispro 1 sliding scale dose SQ 06/20/22 10/09/22 100 unit/mL (75-25) subcutaneous USEASDIRECTD susp (Humalog Mix 75-25(U-100)Insuln) Previous Rx's Medication Instructions Recorded albuterol sulfate 90 mcg/actuation 2 inh inhalation Q6H PRN shortness 06/20/22 aerosol inhaler of breath or wheezing 90 days #8.5 grams fluticasone propionate 230 1 puff inhalation BID 90 days #12 06/20/22 mcg-
[2022-12-27 10:51] VITALS: BP 136/66; PULSE 72; RESP 22; TEMP 37.1; O2SAT 94
== END 2022-12-27 10:54 | disposition home or self-care (01) ==
PROVIDERS: Emergency Provider Physician Assistant; PCP Family Medicine
DX: L03.213 Periorbital cellulitis (principal); H00.022 Hordeolum internum right lower eyelid; E11.9 Type 2 diabetes mellitus without complications; I10 Essential (primary) hypertension; E78.5 Hyperlipidemia, unspecified; Z79.4 Long term (current) use of insulin
CPT/HCPCS: 99212; 99214; G0463

== ENCOUNTER → 2023-02-18 13:26 | Outpatient (CLI) | payer MEDICARE, SELFPAY ==
[2023-02-18 18:07] LABS: Basophils # 0.1 K/mm3 (0-0.2); Basophils % 0.7 % (0.1-2.0); Eosinophils # 0.3 K/mm3 (0.0-0.4); Eosinophils % 2.1 % (0.1-12.0); Hematocrit 40.1 % (37.0-47.0); Hemoglobin 12.7 g/dL (12.2-16.2); Lymphocytes % 32.8 % (10-50); Mean Corpuscular HGB Conc 31.6 g/dL (31.8-35.4); Mean Corpuscular Hemoglobin 28.3 pg (27.0-31.2); Mean Corpuscular Volume 89.4 fl (81-99); Mean Platelet Volume 8.7 fl (7.4-10.4); Monocytes # 0.7 K/mm3 (0.1-1.0); Monocytes % 5.7 % (1.7-9.3); Neutrophils # 7.1 K/mm3 (1.8-7.8); Neutrophils % 58.8 % (37.0-80.0); Platelet Count 273 K/mm3 (142-424); Red Blood Count 4.49 M/mm3 (4.20-5.40); Red Cell Distribution Width 15.3 % (11.5-17.5); White Blood Count 12.1 K/mm3 (4.8-10.8)
[2023-02-18 18:13] LABS: Alanine Aminotransferase 15 U/L (12-78); Albumin Level 4.1 g/dl (3.5-5.0); Albumin/Globulin Ratio 1.5 (1.1-1.8); Alkaline Phosphatase 90 U/L (38-126); Anion Gap 16.4 mEq/L (5-15); Aspartate Amino Transferase 22 U/L (14-36); Bilirubin,Total 0.5 mg/dl (0.2-1.3); Blood Urea Nitrogen 38 mg/dl (7-17); Calcium 9.3 mg/dl (8.4-10.2); Carbon Dioxide 32 mmol/L (22.0-30.0); Chloride 99 mmol/L (98-107); Chol/HDL Ratio 5.7 (1-3.5); Cholesterol 130 mg/dl (140-200); Estimated Glomerular Filt Rate 32 ml/min (>60); GFR (African American) 39 ML/MIN (>60); Globulin 2.7 g/dL (1.3-3.2); Glucose 68 mg/dl (74-100); HDL Cholesterol 23 mg/dl (40-60); Potassium 5.4 mmoL/L (3.5-5.1); Sodium 142 mmol/L (136-145); Total Protein,Serum 6.8 g/dl (6.3-8.2); Triglycerides 215 mg/dl (30-150); VLDL Cholesterol 43 mg/dL (0-40)
[2023-02-18 18:24] LABS: Direct LDL Cholesterol 76.19 mg/dL (100-129)
[2023-02-18 18:42] LABS: Thyroid Stimulating Hormone 1.49 uIU/mL (0.465-4.68)
[2023-02-18 18:52] LABS: Hemoglobin A1C 4.8 % (4.0-6.0)
== END ==
PROVIDERS: PCP Family Medicine; Visit Provider Family Medicine
DX: G89.29 Other chronic pain (principal); M54.9 Dorsalgia, unspecified; N23 Unspecified renal colic; E78.5 Hyperlipidemia, unspecified; Z79.4 Long term (current) use of insulin; E11.9 Type 2 diabetes mellitus without complications; M79.621 Pain in right upper arm
CPT/HCPCS: 80053; 80061; 83036; 84436; 84443; 85025; 87086

== ENCOUNTER → 2023-03-13 07:50 | Outpatient (CLI) | payer MEDICARE, SELFPAY | PROVIDERS: PCP Emergency Medicine; Visit Provider Internal Medicine | DX: R06.02 Shortness of breath (principal) | CPT/HCPCS: 93306 ==

== ENCOUNTER → 2023-03-19 13:43 | Outpatient (CLI) | payer MEDICARE, SELFPAY ==
--- NOTE | 2023-03-19 13:43 | US_ITS ---
FINAL REPORT CLINICAL HISTORY: Pain in URE FINDINGS: US EXTREMITY, NONVASCULAR, LIMITED, ANATOMIC SPECIFIC Limited sonographic images of the right medial arm near the elbow were obtained. No mass or abnormal fluid collection is identified. IMPRESSION: Unremarkable ultrasound. Reviewed, Interpreted and Dictated by Cliff Ngo III, MD Transcribed by Luly Evans Authenticated and . [facility]
--- NOTE | 2023-03-19 14:23 | XR_ITS ---
FINAL REPORT CLINICAL HISTORY: pain in right upper arm COMPARISON: 07/10/2020 FINDINGS: Right shoulder Three views were obtained. There is no acute fracture or dislocation. There is mild AC joint degenerative change. There is spurring of the acromion. No soft tissue abnormality is identified. IMPRESSION: No acute process. Reviewed, Interpreted and Dictated by Cliff Ngo III, MD Transcribed by Luly Evans Authenticated and [facility]
--- NOTE | 2023-03-19 14:23 | XR_ITS ---
FINAL REPORT CLINICAL HISTORY: pain in right upper arm FINDINGS: Right elbow Two views were obtained. There is no acute fracture or dislocation. There are mild degenerative changes. No joint effusion is identified. No soft tissue abnormality is identified. IMPRESSION: No acute process. Reviewed, Interpreted and Dictated by Cliff Ngo III, MD Transcribed by Luly Evans Authenticated and [facility]
--- NOTE | 2023-03-19 14:23 | XR_ITS ---
FINAL REPORT CLINICAL HISTORY: pain in right upper arm FINDINGS: Right humerus Two views were obtained. There is no acute fracture or dislocation. There are mild degenerative changes of the shoulder. No soft tissue abnormality is identified. IMPRESSION: No acute process. Reviewed, Interpreted and Dictated by Cliff Ngo III, MD Transcribed by Luly Evans Authenticated and . [facility]
== END ==
PROVIDERS: PCP Emergency Medicine; Visit Provider Family Medicine
DX: M79.621 Pain in right upper arm (principal); M25.521 Pain in right elbow; M25.511 Pain in right shoulder
CPT/HCPCS: 73030; 73060; 73070; 76882

== ENCOUNTER 2023-04-05 12:58 | Emergency (ER) | payer MEDICARE, SELFPAY ==
[2023-04-05 12:59] VITALS: BP 119/65; PULSE 73; RESP 16; TEMP 36.8; O2SAT 97; BMI 42.0
--- NOTE | 2023-04-05 13:35 | HMH.EDGENADL ---
Discharge Plan Disposition Patient Disposition: Home, Self-Care Prescriptions Prescriptions: New amoxicillin-pot clavulanate 875-125 mg tablet 1 tab PO BID 10 Days Qty: 20 0RF No Action aspirin [Adult Low Dose Aspirin] 81 mg tablet,delayed release (DR/EC) 81 mg PO DAILY fluticasone propionate [Flonase Allergy Relief] 50 mcg/actuation spray,suspension 50 mcg intranasal DAILY PRN (Reason: allergies) potassium citrate 10 mEq (1,080 mg) tablet extended release 1,080 mg PO BID nitrofurantoin macrocrystal 50 mg capsule 50 mg PO DAILY 90 Days Qty: 90 0RF Rx Instructions: must administer with a meal/food Levemir U-100 Insulin 100 unit/mL solution 200 unit SQ QPM omeprazole 40 mg capsule,delayed release(DR/EC) 40 mg PO DAILY Qty: 90 3RF Humalog Mix 75-25(U-100)Insuln 100 unit/mL (75-25) suspension 1 sliding scale dose SQ USEASDIRECTD atorvastatin [Lipitor] 40 mg tablet 10 mg PO DAILY albuterol sulfate 90 mcg/actuation HFA aerosol inhaler 2 inh inhalation Q6H PRN (Reason: shortness of breath or wheezing) 90 Days Qty: 8.5 3RF allopurinol 100 mg tablet 100 mg PO Q OTHER DAY Ozempic 1 mg/dose (4 mg/3 mL) pen injector 1 mg SQ WEEKLY bumetanide 1 mg tablet 1 mg PO BID PRN (Reason: edema) Qty: 180 3RF losartan 50 mg tablet 50 mg PO DAILY Qty: 90 3RF bisoprolol fumarate 10 mg tablet 10 mg PO DAILY Qty: 30 2RF (DME) OneTouch Ultra Test Strip See Rx Instructions .Route Qty: 100 0RF Rx Instructions: As directed clonazepam 2 mg tablet,disintegrating 2 mg PO DAILY Qty: 30 3RF Referrals Follow up/Referrals: Ricardo Lemons MD [Primary Care Provider] - See instructions Activity Restrictions/Add. Instructions Additional Instructions/Restrictions: You have unilateral cervical lymphadenitis which is most likely from a staph or strep infection. Is unlikely to be malignancy however I want you to follow-up with an ENT doctor or your primary care doctor to ensure resolution. There is no evidence of any significant surrounding infection to what this would be reactive. Return with any concerns. Clinical Impressions Clinical Impression: Acute cervical lymphadenitis Instructions Patient Instructions: DI for Skin Abscess Discharge ED Provider: Archana Suh General Adult HPI General Chief complaint: Skin/Abscess/Foreign Body Stated complaint: knot on neck Time Seen by Provider: 04/05/23 13:21 Mode of Arrival: Wheelchair Source of Information: Patient Limitations: No Limitations Description of Symptoms (Recalled from ER Triage Doc. by RN): Presents to ED with c/o hard/round knot of left side of her neck that she noticed a few hours ago. Patient further reports pain in jaw as well as difficulty swallowing x 1 month. Patient reports having thyroid surgery. History of Present Illness HPI narrative: 67-year-old female presenting with a knot on the left side of her neck that she noticed just a few hours ago. No significant swelling associated with this just feels some tenderness. She states that it is a little bit sore she does not have any significant throat pain or other surrounding infectious symptoms. No fevers or chills. She does have a history of a partial thyroidectomy but this is much lower than the current symptoms. This pain was not worse with eating or any type of salivary production. Related Data Home Medications Medication Instructions Recorded Confirmed aspirin 81 mg tablet,delayed 81 mg PO DAILY heart health 04/28/18 03/03/23 release (Adult Low Dose Aspirin) fluticasone propionate 50 50 mcg intranasal DAILY PRN 08/26/18 03/03/23 mcg/actuation nasal allergies spray,suspension (Flonase Allergy Relief) insulin detemir U-100 100 unit/mL 200 unit SQ QPM DM 04/12/21 03/03/23 subcutaneous solution (Levemir U-100 Insulin) potassium citrate 10 mEq (1,080 1,080 mg PO BID kidney function
[2023-04-05 13:39] VITALS: BP 114/55; PULSE 69; RESP 16; TEMP 36.8; O2SAT 97
== END 2023-04-05 13:41 | disposition home or self-care (01) ==
PROVIDERS: Emergency Provider Student in an Organized Health Care Education/Training Program; PCP Emergency Medicine
DX: L04.0 Acute lymphadenitis of face, head and neck (principal); J45.909 Unspecified asthma, uncomplicated; E11.9 Type 2 diabetes mellitus without complications; I70.1 Atherosclerosis of renal artery; G47.33 Obstructive sleep apnea (adult) (pediatric)
CPT/HCPCS: 99283

== ENCOUNTER → 2023-04-14 09:38 | Outpatient (CLI) | payer MEDICARE, SELFPAY ==
--- NOTE | 2023-04-14 09:38 | US_ITS ---
FINAL REPORT CLINICAL HISTORY: lymphadenitis COMPARISON: None FINDINGS: Thyroid ultrasound: The left lobe of the thyroid and the isthmus have been surgically resected. The right lobe of the thyroid measures 4.9 x 2.4 x 2.1 cm in size. There are three nodules identified in the thyroid gland. The largest measures 1.4 x 1.5 x 1.3 cm in size, is solid, hypoechoic, and a TI-RADS 4 category nodule. A second nodule measures 6 x 5 x 3 mm in size, is solid, hypoechoic, and also TI-RADS 4 by category. The third nodule measures 6 x 7 x 4 mm in size, is cystic, and a TI-RADS 1 category nodule. IMPRESSION: Three nodules in the right lobe of the thyroid gland as described. The largest measures 1.4 x 1.5 x 1.3 cm in size and is a TI-RADS 4 nodule. Given the appearance of the nodule and the size would recommend ultrasound-guided fine-needle aspiration for biopsy. Prior left thyroidectomy. Reviewed, Interpreted and Dictated by Cliff Ngo III, MD Transcribed by Jeri Beck Authenticated and [facility]
== END ==
PROVIDERS: PCP Emergency Medicine; Visit Provider Emergency Medicine
DX: L04.9 Acute lymphadenitis, unspecified (principal)
CPT/HCPCS: 76536

== ENCOUNTER → 2023-04-22 08:29 | Outpatient (CLI) | payer MEDICARE, SELFPAY ==
--- NOTE | 2023-04-22 08:29 | US_ITS ---
FINAL REPORT CLINICAL HISTORY: .rt thyroid fna-- shila marie-- FINDINGS: Ultrasound guided thyroid biopsy. HISTORY: Thyroid mass. PROCEDURE: After informed consent was obtained and a time-out was performed, the patient was prepped and draped in usual sterile fashion over the anterior neck. Utilizing local anesthesia and sterile technique with a 25-gauge needle, access to the lesion was obtained. Four passes were made. The patient received no conscious sedation. The patient tolerated procedure well and left the department in good condition. IMPRESSION: Status post ultrasound guided biopsy of a thyroid nodule without immediate complication. Films reviewed , interpreted and dictated by Dr. Ngo Transcribed by Shila López PA-C. Reviewed, Interpreted and Dictated by Cliff Ngo III, MD Transcribed by MIGUEL ÁNGEL Bakre Authenticated and [facility]
== END ==
PROVIDERS: PCP Emergency Medicine; Visit Provider Physician Assistant
DX: E07.9 Disorder of thyroid, unspecified (principal)
CPT/HCPCS: 10005; 76536; 88173

== ENCOUNTER 2023-04-25 08:25 | Day surgery (SDC) | payer MEDICARE, SELFPAY ==
[2023-04-22 12:28] VITALS: BMI 41.5
[2023-04-25 08:41] VITALS: BP 155/67; PULSE 80; RESP 17; TEMP 36.4; O2SAT 98
--- NOTE | 2023-04-25 09:01 | P.PNANES_ITS ---
[facility] Disclaimer: The information contained in this section may have been updated after the patient was seen, as this information can be updated by other users. Medical History Acquired elevated diaphragm Allergic rhinitis Asthma Diabetes mellitus Edema History of stent insertion of renal artery Hyperkalemia ANN (obstructive sleep apnea) BHANU (renal artery stenosis) Restrictive lung disease Right bundle branch block (RBBB) Syncope and collapse Tracheal deviation Surgical History History of back surgery History of cataract surgery History of cholecystectomy History of hysterectomy History of tonsillectomy History of tubal ligation S/P thyroid biopsy Family History Brother Asthma Social History Smoking Status: Never smoker second hand exposure: Yes alcohol intake: never substance use type: denies use current occupational status: retired and disabled Travel in the last 8 weeks: None household members: spouse housing: house current occupational exposures/hazards: No caffeine: Yes [facility] Anesthesia Checklist Patient Identification Patient Identification: Verbal (Name & ) Structural Data Admitted From: Home Planned Operative Procedure/s: colonoscopy Consent for Planned Operative Procedure(s) Verified: Yes Additional verifications Anesthesia Reactions: No Hx Blood Transfusions: No Blood Transfusion Reaction: No Airway Assessment Mallampati Score:: Class II C-Spine Mobility Assessed: Yes TMJ Mobility Assessed: Yes Dentition: Edentulous Neurological Assessment Level of Consciousness: Awake, Alert and Appropriate Anesthesia Plan Anesthesia Risk discussed: Yes Anesthesia Plan: Verified ASA Class: IV Anesthesia Type: MAC
[2023-04-25 09:02] LABS: POC Glucose,Bedside 96 (70-110)
[2023-04-25 09:18] VITALS: O2SAT 98
--- NOTE | 2023-04-25 10:11 | [facility].SCOPE ---
Procedure: Date: 04/25/23 Patient Date of :: 1955 Procedure Performed:: Total colonoscopy to cecum with polypectomy using snare and biopsy forceps. Indications:: Patient is a 67-year-old female with family history of colon cancer in her mother at approximately age 60. She had a colonoscopy in [address] Hal Hastings and had a tubular adenoma removed. I have done colonoscopies on her in 2006, 2013, and 2019. Last colonoscopy revealed tubular adenoma and a 3-year follow-up was recommended. Patient has history of diabetes, pacemaker placement, right bundle branch block, obstructive sleep apnea, chronic lung disease, carotid artery disease, pulmonary hypertension, chronic kidney disease. Performing Provider:: Cliff Mcclendon MD Referring Provider:: Rakesh Lemons MD Sedation:: MAC sedation Procedure:: Patient history was obtained and appropriate physical examination was performed. Patient's medications and allergies were reviewed. Informed consent was obtained after explaining the benefits, alternatives, and risks of the procedure including, but not limited to, bleeding, perforation, missed lesions, and adverse reaction to anesthesia medications. Patient was transported to endoscopy procedure room. Patient was connected to monitoring devices. Throughout the procedure the patient's blood pressure, pulse, and oxygen saturations were monitored continuously. Patient identification and planned procedure were verified by the staff. Patient was positioned in lateral decubitus position. Digital anorectal exam was performed. Variable stiffness Olympus colonoscope was inserted and advanced under direct visualization to the cecum. Adequacy of the colonic preparation was noted. The colonoscope was unable to be advanced into the terminal ileum due to redundancy of the colon. The colonoscope was then slowly withdrawn while carefully examining the color, texture, anatomy, and integrity of the mucosoa circumferentially. Within the rectum retroflexion was performed. Colonoscope was then withdrawn. . Colonic preparation was fair with some significant particulate liquid stool in the right colon with some stool coating the javed. With thorough trans colonoscopic irrigation and suctioning this was able to be mostly cleared. There was a small diminutive polyp on the ileocecal valve which was removed with cold snare and retrieved with biopsy forceps. In the rectosigmoid region there were a couple of diminutive hyperplastic appearing polyps removed with cold biopsy forceps. She had sigmoid diverticulosis. . Findings:: Fair prep Polyps as noted above Sigmoid diverticulosis Recommendations:: Likely repeat colonoscopy 3 years with 2-day prep Complications:: None Estimated blood obtained (mL): 2 Colonoscopy Component Colonoscopy Component Was a colonoscopy performed during today's procedure?: Yes Recommended follow up colonoscopy of at least 10 years?: No If no, follow up colonoscopy recommended in ___ years?: 3 Reason for not recommending >/= 10 yr follow-up interval?: Family history, polyp, poor prep
[2023-04-25 10:12] VITALS: BP 79/45; PULSE 73; RESP 18; TEMP 36.1; O2SAT 88
[2023-04-25 10:20] VITALS: BP 102/53; PULSE 73; RESP 18; O2SAT 96
[2023-04-25 10:28] VITALS: BP 123/60; PULSE 74; RESP 18; O2SAT 97
[2023-04-25 10:40] VITALS: BP 114/52; PULSE 75; RESP 18; O2SAT 98
== END 2023-04-25 10:46 | disposition home or self-care (01) ==
PROVIDERS: PCP Emergency Medicine; Visit Provider Surgery
PROC: 0DJD8ZZ Inspection of Lower Intestinal Tract, Via Natural or Artificial Opening Endoscopic (ICD-10-PCS; principal; 2023-04-25 09:30)
DX: Z12.11 Encounter for screening for malignant neoplasm of colon (principal); Z86.010 Personal history of colon polyps; Z80.0 Family history of malignant neoplasm of digestive organs; K57.30 Diverticulosis of large intestine without perforation or abscess without bleeding; D12.0 Benign neoplasm of cecum; E11.9 Type 2 diabetes mellitus without complications; Z95.0 Presence of cardiac pacemaker; I77.9 Disorder of arteries and arterioles, unspecified; I27.20 Pulmonary hypertension, unspecified; N18.9 Chronic kidney disease, unspecified
CPT/HCPCS: 45380; 45385; 82962; 88305; J2704

== ENCOUNTER → 2023-04-30 23:31 | Outpatient (CLI) | payer MEDICARE, SELFPAY | PROVIDERS: PCP Emergency Medicine; Visit Provider Emergency Medicine | DX: G89.29 Other chronic pain (principal); M54.9 Dorsalgia, unspecified; R39.15 Urgency of urination | CPT/HCPCS: 87086 ==

== ENCOUNTER → 2023-05-06 09:26 | Outpatient (CLI) | payer MEDICARE, SELFPAY ==
--- NOTE | 2023-05-06 10:23 | CT_ITS ---
FINAL REPORT CLINICAL HISTORY: vestibular dysfunction FINDINGS: Axial images of the head were obtained without and with contrast. Coronal reformatted images were also obtained. This study was performed with techniques to keep radiation doses as low as reasonably achievable (ALARA). Individualized dose reduction techniques using automated exposure control or adjustment of mA and/or kV according to the patient's size were employed. There is no evidence of intracranial hemorrhage or mass. There is no evidence of acute infarct. There is no evidence of shift of the midline structures. No abnormal contrast enhancement is seen. There is fairly extensive hyperostosis frontalis interna. There is complete opacification of the right cell of the sphenoid sinus consistent with chronic sinusitis. IMPRESSION: No acute intracranial abnormality identified. Reviewed, Interpreted and Dictated by Kwasi Saavedra MD Transcribed by Elver Rodrigues Authenticated and [facility]
[2023-05-06 10:46] LABS: Anion Gap 13.5 mEq/L (5-15); Blood Urea Nitrogen 31 mg/dl (7-17); Calcium 10.5 mg/dl (8.4-10.2); Carbon Dioxide 34 mmol/L (22.0-30.0); Chloride 102 mmol/L (98-107); Estimated Glomerular Filt Rate 30 ml/min (>60); GFR (African American) 36 ML/MIN (>60); Potassium 4.5 mmoL/L (3.5-5.1); Sodium 145 mmol/L (136-145)
[2023-05-06 10:50] LABS: Glucose 42 mg/dl (74-100)
== END ==
PROVIDERS: PCP Emergency Medicine; Visit Provider Emergency Medicine
DX: E07.9 Disorder of thyroid, unspecified (principal); H83.2X9 Labyrinthine dysfunction, unspecified ear
CPT/HCPCS: 36415; 70470; 80048; 82565; 84520; Q9966

== ENCOUNTER → 2023-05-13 14:38 | Outpatient (CLI) | payer MEDICARE, SELFPAY ==
[2023-05-13 15:53] LABS: Microalbumin/Creatinine Ratio 10.8
[2023-05-13 16:11] LABS: Creatinine,Urine Random 260 mg/dL (Not Estab.)
[2023-05-13 16:40] LABS: Albumin Level 4.2 g/dl (3.5-5.0); Anion Gap 13.7 mEq/L (5-15); Blood Urea Nitrogen 29 mg/dl (7-17); Calcium 9.8 mg/dl (8.4-10.2); Carbon Dioxide 34 mmol/L (22.0-30.0); Chloride 102 mmol/L (98-107); Estimated Glomerular Filt Rate 32 ml/min (>60); GFR (African American) 39 ML/MIN (>60); Glucose 81 mg/dl (74-100); Phosphorous 3.6 mg/dl (2.5-4.5); Potassium 4.7 mmoL/L (3.5-5.1); Sodium 145 mmol/L (136-145)
[2023-05-13 16:49] LABS: Intact Parathyroid Hormone 192.9 pg/mL (7.5-53.5)
[2023-05-13 16:54] LABS: 25-OH Vitamin D, Total 41.2 ng/mL (30-100)
== END ==
PROVIDERS: PCP Emergency Medicine; Visit Provider Internal Medicine Nephrology
DX: N18.32 Chronic kidney disease, stage 3b (principal); N25.81 Secondary hyperparathyroidism of renal origin; I10 Essential (primary) hypertension
CPT/HCPCS: 36415; 80069; 82043; 82306; 82570; 83970

== ENCOUNTER → 2023-05-19 13:00 | Outpatient (POV) | payer MEDICARE, SELFPAY | PROVIDERS: Visit Provider Nurse Practitioner | DX: Z00.00 Encounter for general adult medical examination without abnormal findings (principal) ==

== ENCOUNTER → 2023-09-03 13:24 | Outpatient (CLI) | payer MEDICARE, SELFPAY ==
[2023-09-03 13:49] LABS: Basophils # 0.1 K/mm3 (0-0.2); Basophils % 0.6 % (0.1-2.0); Eosinophils # 0.3 K/mm3 (0.0-0.4); Eosinophils % 2.5 % (0.1-12.0); Hematocrit 40.9 % (37.0-47.0); Hemoglobin 13.6 g/dL (12.2-16.2); Lymphocytes % 34.6 % (10-50); Mean Corpuscular HGB Conc 33.4 g/dL (31.8-35.4); Mean Corpuscular Hemoglobin 29.3 pg (27.0-31.2); Mean Corpuscular Volume 87.6 fl (81-99); Mean Platelet Volume 7.7 fl (7.4-10.4); Monocytes # 0.4 K/mm3 (0.1-1.0); Monocytes % 3.8 % (1.7-9.3); Neutrophils # 6.8 K/mm3 (1.8-7.8); Neutrophils % 58.5 % (37.0-80.0); Platelet Count 222 K/mm3 (142-424); Red Blood Count 4.67 M/mm3 (4.20-5.40); Red Cell Distribution Width 15.4 % (11.5-17.5); White Blood Count 11.7 K/mm3 (4.8-10.8)
[2023-09-03 15:32] LABS: Alanine Aminotransferase 21 U/L (12-78); Albumin Level 4.2 g/dl (3.5-5.0); Alkaline Phosphatase 79 U/L (38-126); Anion Gap 10.5 mEq/L (5-15); Aspartate Amino Transferase 24 U/L (14-36); Bilirubin,Direct 0.2 mg/dl (0.0-0.4); Bilirubin,Indirect 0.2 mg/dL (0.0-0.9); Bilirubin,Total 0.4 mg/dl (0.2-1.3); Bilirubin,Unconjugated 0.2 mg/dL (0.0-1.1); Blood Urea Nitrogen 30 mg/dl (7-17); Calcium 9.5 mg/dl (8.4-10.2); Carbon Dioxide 30 mmol/L (22.0-30.0); Chloride 102 mmol/L (98-107); Chol/HDL Ratio 5.7 (1-3.5); Cholesterol 154 mg/dl (140-200); Estimated Glomerular Filt Rate 38 ml/min (>60); GFR (African American) 45 ML/MIN (>60); Glucose 123 mg/dl (74-100); HDL Cholesterol 27 mg/dl (40-60); Magnesium 1.8 mg/dl (1.6-2.3); Potassium 4.5 mmoL/L (3.5-5.1); Sodium 138 mmol/L (136-145); Total Protein,Serum 6.9 g/dl (6.3-8.2); Triglycerides 246 mg/dl (30-150); VLDL Cholesterol 49 mg/dL (0-40)
[2023-09-03 15:48] LABS: Free T4 (Free Thyroxine) 0.76 ng/dl (0.78-2.19)
[2023-09-03 16:02] LABS: Thyroid Stimulating Hormone 1.28 uIU/mL (0.465-4.68)
== END ==
PROVIDERS: PCP Internal Medicine; Visit Provider Internal Medicine
DX: E11.9 Type 2 diabetes mellitus without complications (principal); E78.5 Hyperlipidemia, unspecified; G47.33 Obstructive sleep apnea (adult) (pediatric); I10 Essential (primary) hypertension; I25.10 Atherosclerotic heart disease of native coronary artery without angina pectoris; I27.20 Pulmonary hypertension, unspecified; I45.10 Unspecified right bundle-branch block; I70.1 Atherosclerosis of renal artery; I73.9 Peripheral vascular disease, unspecified; R06.00 Dyspnea, unspecified; Z95.0 Presence of cardiac pacemaker; Z98.890 Other specified postprocedural states; Z79.4 Long term (current) use of insulin
CPT/HCPCS: 36415; 80048; 80061; 80076; 83735; 84439; 84443; 85025

== ENCOUNTER 2023-09-10 13:35 | Outpatient (CLI) | payer MEDICARE, SELFPAY ==
[2023-09-10 19:07] LABS: Amphetamine/Metha Screen,Urine Negative ng/ml (<1000); Barbiturates Screen,Urine Negative ng/ml (<200); Benzodiazepines Screen,Urine Negative ng/ml (<200); Cannabinoid Screen,Urine Negative ng/ml (<50); Cocaine Screen,Urine Negative ng/ml (<300); Methadone Screen,Urine Negative ng/ml (<300); Opiate Screen,Urine Negative ng/ml (<300); Phencyclidine Screen,Urine Negative ng/ml (<25)
[2023-09-15 10:00] LABS: Alprazolam Negative (Cutoff=100); Benzodiazepines Positive ng/mL (Cutoff=100); Clonazepam Positive (.); Clonazepam Confirm 1177 ng/mL (Cutoff=100); Flurazepam Negative (Cutoff=100); Lorazepam Negative (Cutoff=100); Midazolam Negative (Cutoff=100); Temazepam Negative (Cutoff=100); Triazolam Negative (Cutoff=100)
== END 2023-09-10 23:59 ==
LOC: LAB.DROPOF 13:35
PROVIDERS: PCP Internal Medicine; Visit Provider Internal Medicine
DX: Z79.899 Other long term (current) drug therapy (principal); G89.29 Other chronic pain; M54.9 Dorsalgia, unspecified
CPT/HCPCS: 80307; 80346

== ENCOUNTER 2023-09-12 12:32 | Outpatient (CLI) | payer MEDICARE, SELFPAY ==
--- NOTE | 2023-09-12 12:33 | CA_ITS ---
APPROVED REPORT EXAM: Comprehensive 2D, Doppler, and color-flow Echocardiogram Political Theory Professor: CAROLYN Marin, RVS Ht: 5 ft 4 in Wt: 249lbs BSA: 2.15 BP: 158/78 mmHg Indications: SOA, , Diastolic dysfunction, HTN, Pacer, PHTN 2D Dimensions IVSd 1.25 cm LVEF (Visual) 69.30 % PWd 1.09 cm LA Volume 37.20 mL LVDd 4.82 cm LA Volume Index 16.90 mL/m2 (M/F) 16-34 LVDs 2.94 cm Left Atrium 3.38 cm M-Mode Dimensions LA Diam 4.16 cm (1.9-4.0) EPSs 0.50 cm TAPSE 1.17 (<1.7) LV Diastology E Decel Time 203 (160-240 msec) E/A Ratio 0.83 MED A' 10.00 cm/s LAT A' 7.60 cm/s Aortic Valve ELVIN Index 1.23 cm2/m2 AoV Peak Julio. 102.0 (50-130 cm/s) AO Peak GR. 4.10 mmHg AO Mean GR. 2.10 (<5 mmHg) AO VTI 21.6 (18-25 cm) ELVIN (VTI) 2.71 (2.5-4.5 cm2) Mitral Valve MV A Velocity 82.0 (40-130 cm/s) E/A Ratio 0.83 MV Mean Gr. 1.30 (<2mmHg) Tricuspid Valve TR P. Velocity 207.00 cm/s Left Ventricle The left ventricle is normal size. The left ventricular systolic function is normal. The left ventricular ejection fraction is within the normal range. There is increased LV wall thickness. There is moderate hypokinesis of the inferior and inferolateral LV javed. Transmitral Doppler flow pattern suggests impaired LV relaxation. LVEF is 55% Right Ventricle The right ventricle is normal size. The right ventricular systolic function is normal. A device lead is present in the right ventricle. Atria The left atrium size is normal. The right atrium size is normal. There is no Doppler evidence of interatrial shunt. Aortic Valve The aortic valve opens well. There is no aortic valvular stenosis. No aortic regurgitation. Mitral Valve The mitral valve is normal in structure. No evidence of mitral valve stenosis. Trace mitral regurgitation. Tricuspid Valve The tricuspid valve leaflets are thin and pliable. Trace tricuspid regurgitation. There is insufficient TR jet to estimate RVSP. Pulmonic Valve The pulmonic valve is not well visualized. Trace pulmonic regurgitation. Great Vessels The aortic root is normal in size. The ascending aorta is not well visualized. The IVC is not well visualized. Pericardium There is no pericardial effusion. Other Information Study Quality: Fair Conclusion Normal biventricular systolic function. Moderate hypokinesis of the inferior and inferolateral LV javed. No significant valvular stenosis or regurgitation. Electronically signed by : Jailyn Carlos MD 09/14/2023 16:30:17
== END 2023-09-12 23:59 ==
PROVIDERS: PCP Internal Medicine; Visit Provider Internal Medicine
DX: R06.02 Shortness of breath (principal); I11.9 Hypertensive heart disease without heart failure; I25.10 Atherosclerotic heart disease of native coronary artery without angina pectoris; I27.20 Pulmonary hypertension, unspecified; I70.1 Atherosclerosis of renal artery; Z95.0 Presence of cardiac pacemaker
CPT/HCPCS: 93306

== ENCOUNTER 2023-09-22 10:38 | Outpatient (CLI) | payer MEDICARE, SELFPAY ==
[2023-09-22] VITALS (10 sets, daily range): BP systolic 128–164; BP diastolic 65–81; PULSE 61–73; RESP 16–18; O2SAT 97–98; BMI 41.5
[2023-09-22 11:29] LABS: Chloride 100 mmol/L (98-107); Potassium 4.4 mmoL/L (3.5-5.1); Sodium 139 mmol/L (136-145)
[2023-09-22 11:32] LABS: Anion Gap 8.4 mEq/L (5-15); Blood Urea Nitrogen 40 mg/dl (7-17); Calcium 9.2 mg/dl (8.4-10.2); Carbon Dioxide 35 mmol/L (22.0-30.0); Creatinine Clearance Estimated 28 mL/min (50-200); Estimated Glomerular Filt Rate 30 ml/min (>60); GFR (African American) 36 ML/MIN (>60); Glucose 106 mg/dl (74-100)
[2023-09-22] MEDS: METOPROLOL TARTRATE 50MG TABLET *IVABRADINE+METOPROLOL REGIMINE 50 MG PO (12:00)
[2023-09-22] MEDS: 0.9 % SODIUM CHLORIDE 1000ML 1,000 ML 999 ML IV (12:00)
[2023-09-22] MEDS: IVABRADINE HCL 7.5MG TABLET 15 MG PO (12:04)
[2023-09-22] MEDS: NITROGLYCERIN 0.4MG SL TABLET 0.800000000000000044 MG SL (13:00)
[2023-09-22] MEDS: METOPROLOL TARTRATE 5MG/5ML VIAL *IVABRADINE+METOPROLOL REGIMINE 5 MG IV ×2 (13:10→13:18)
[2023-09-22] MEDS: 0.9 % SODIUM CHLORIDE 50 ML VIAL IV (13:47)
[2023-09-22] MEDS: SODIUM CHLORIDE 0.9% 10ML SYR (RAD ONLY) 10 ML IV (13:48)
[2023-09-22] MEDS: IOPAMIDOL-370 (76%);100ML BOTTLE 85 ML IV (13:48)
[2023-09-23 07:54] LABS: POC Glucose,Bedside 102 (70-110)
== END 2023-09-22 14:09 | disposition home or self-care (01) ==
PROVIDERS: PCP Internal Medicine; Visit Provider Internal Medicine
DX: E11.9 Type 2 diabetes mellitus without complications (principal); E78.5 Hyperlipidemia, unspecified; G47.33 Obstructive sleep apnea (adult) (pediatric); I10 Essential (primary) hypertension; I25.10 Atherosclerotic heart disease of native coronary artery without angina pectoris; I27.20 Pulmonary hypertension, unspecified; I45.10 Unspecified right bundle-branch block; I51.89 Other ill-defined heart diseases; I70.1 Atherosclerosis of renal artery; I73.9 Peripheral vascular disease, unspecified; R06.00 Dyspnea, unspecified; Z95.0 Presence of cardiac pacemaker; Z98.890 Other specified postprocedural states; R94.31 Abnormal electrocardiogram [ECG] [EKG]; I25.84 Coronary atherosclerosis due to calcified coronary lesion
CPT/HCPCS: 75571; 75574; 80048; 82962; Q9967

== ENCOUNTER 2023-10-03 08:12 | Day surgery (SDC) | payer MEDICARE, SELFPAY ==
[2023-10-03] VITALS (14 sets, daily range): BP systolic 94–154; BP diastolic 53–74; PULSE 70–83; RESP 17–19; TEMP 36.6; O2SAT 96–100; BMI 42.2
--- NOTE | 2023-10-03 07:10 | IR_ITS ---
APPROVED REPORT Patient Location: Outpatient PROCEDURES Left heart catheterization Left ventriculogram Selective coronary angiogram INDICATION Abnormal CCTA with elevated calcium score, Coronary artery disease Informed consent was obtained prior to the procedure. COMPLICATIONS NONE Estimated Blood Loss: LESS THAN 10 ML TECHNIQUE One percent lidocaine used to anesthetize the right anterior aspect of the wrist. The right radial artery was accessed via the Seldinger technique. A 6 Faroese sheath was placed in the right radial artery. 2.5 mg of Verapamil, 800 mcg of nitroglycerin, 1mg Lidocaine and 5000 U Heparin were given through the arterial sheath. The papa catheter was also used to perform left heart catheterization, left ventriculogram and selective coronary angiogram. At the end of the procedure the sheath was removed good hemostasis was achieved using Traclet band, patient was transferred to the postop holding area in stable condition. ANGIOGRAPHIC RESULTS The left main artery Normal The left anterior descending artery Has proximal 10% luminal irregularities with a mid vessel myocardial bridge which compresses to 30% during systole. The remaining LAD is widely patent The circumflex artery Gives rise to a large ramus intermedius which has a proximal concentric 40 to 50% stenosis with remaining circumflex artery being widely patent The right coronary artery Nondominant and has proximal 30% stenosis with an additional mid vessel 40 to 50% stenosis. The LAW ventriculogram reveals Preserved at 60% The left ventricular end-diastolic pressure 25 mmHg IMPRESSION Coronary artery disease as described above Preserved ejection fraction Elevated LVEDP PLAN 1. Medical management for HFpEF 2. Aggressive risk factor modification Electronically signed by : Tavo Brock MD 10/03/2023 13:06:21
[2023-10-03 08:43] LABS: Basophils # 0.1 K/mm3 (0-0.2); Basophils % 0.9 % (0.1-2.0); Eosinophils # 0.2 K/mm3 (0.0-0.4); Eosinophils % 1.8 % (0.1-12.0); Hematocrit 37.6 % (37.0-47.0); Hemoglobin 13.9 g/dL (12.2-16.2); Lymphocytes # 3.4 K/mm3 (0.7-4.5); Lymphocytes % 32.2 % (10-50); Mean Corpuscular Volume 86.4 fl (81-99); Mean Platelet Volume 7.8 fl (7.4-10.4); Monocytes # 0.5 K/mm3 (0.1-1.0); Neutrophils # 6.3 K/mm3 (1.8-7.8); Neutrophils % 60.1 % (37.0-80.0); Platelet Count 203 K/mm3 (142-424); Red Blood Count 4.36 M/mm3 (4.20-5.40); Red Cell Distribution Width 15.7 % (11.5-17.5); White Blood Count 10.5 K/mm3 (4.8-10.8)
[2023-10-03 08:51] LABS: Anion Gap 11.7 mEq/L (5-15); Blood Urea Nitrogen 30 mg/dl (7-17); Calcium 9.9 mg/dl (8.4-10.2); Carbon Dioxide 32 mmol/L (22.0-30.0); Chloride 99 mmol/L (98-107); Creatinine Clearance Estimated 28 mL/min (50-200); Estimated Glomerular Filt Rate 30 ml/min (>60); GFR (African American) 36 ML/MIN (>60); Glucose 102 mg/dl (74-100); Potassium 3.7 mmoL/L (3.5-5.1); Sodium 139 mmol/L (136-145)
[2023-10-03] MEDS: diphenhydrAMINE 50MG/ML VIAL 50 MG IV (10:51)
[2023-10-03] MEDS: VERAPAMIL 2.5MG/ML 2ML VIAL 2.5 MG IV (10:51)
[2023-10-03] MEDS: HEPARIN 1,000 UNITS/500ML NS (CATH LAB) 3000 UNIT IV (10:52)
[2023-10-03] MEDS: MIDAZOLAM HCL 1MG/1ML 5ML VIAL 1 MG IV (10:52)
[2023-10-03] MEDS: 0.9 % SODIUM CHLORIDE 500 ML 25 ML IV (10:52)
[2023-10-03] MEDS: NITROGLYCERIN 800MCG/8ML SYR (CATH LAB) 800 MCG IA (10:52)
[2023-10-03] MEDS: HEPARIN 1,000 UNITS/ML 10ML VIAL (CATH LAB) 10000 UNIT IV (10:52)
[2023-10-03] MEDS: LIDOCAINE 1% 10ML MDV 20 ML IJ (10:52)
[2023-10-03] MEDS: FENTANYL 100MCG/2ML VIAL 50 MCG IV (10:53)
[2023-10-03] MEDS: PROMETHAZINE HCL 25MG/ML 1ML VIAL 25 MG IV (11:06)
[2023-10-03] MEDS: IOPAMIDOL-370 (76%);100ML BOTTLE 60 ML IV (13:39)
== END 2023-10-03 14:23 | disposition home or self-care (01) ==
PROVIDERS: PCP Internal Medicine; Visit Provider Internal Medicine
DX: I25.118 Atherosclerotic heart disease of native coronary artery with other forms of angina pectoris (principal); R06.00 Dyspnea, unspecified; R93.1 Abnormal findings on diagnostic imaging of heart and coronary circulation; Z95.0 Presence of cardiac pacemaker; E11.9 Type 2 diabetes mellitus without complications; Z79.4 Long term (current) use of insulin
CPT/HCPCS: 80048; 85025; 93458; 99152; C1725; C1760; C1769; J1644; Q9967

== ENCOUNTER 2023-10-09 10:07 | Outpatient (CLI) | payer MEDICARE, SELFPAY ==
[2023-10-09 11:02] LABS: Anion Gap 10.4 mEq/L (5-15); Blood Urea Nitrogen 27 mg/dl (7-17); Calcium 10.1 mg/dl (8.4-10.2); Carbon Dioxide 33 mmol/L (22.0-30.0); Chloride 103 mmol/L (98-107); Estimated Glomerular Filt Rate 28 ml/min (>60); GFR (African American) 34 ML/MIN (>60); Potassium 4.4 mmoL/L (3.5-5.1); Sodium 142 mmol/L (136-145)
[2023-10-09 11:14] LABS: Glucose 42 mg/dl (74-100)
== END 2023-10-09 23:59 ==
LOC: LAB 10:08
PROVIDERS: PCP Internal Medicine; Visit Provider Nurse Practitioner
DX: I11.9 Hypertensive heart disease without heart failure (principal); I25.10 Atherosclerotic heart disease of native coronary artery without angina pectoris; R06.02 Shortness of breath; E78.5 Hyperlipidemia, unspecified; I73.9 Peripheral vascular disease, unspecified; R93.1 Abnormal findings on diagnostic imaging of heart and coronary circulation; Z95.0 Presence of cardiac pacemaker
CPT/HCPCS: 36415; 80048

== ENCOUNTER 2023-10-16 11:08 | Outpatient (CLI) | payer MEDICARE, SELFPAY ==
[2023-10-16 11:50] LABS: Amylase 52 U/L (30-110); Anion Gap 8.3 mEq/L (5-15); Blood Urea Nitrogen 25 mg/dl (7-17); Calcium 9.7 mg/dl (8.4-10.2); Carbon Dioxide 34 mmol/L (22.0-30.0); Chloride 104 mmol/L (98-107); Estimated Glomerular Filt Rate 32 ml/min (>60); GFR (African American) 39 ML/MIN (>60); Glucose 60 mg/dl (74-100); Lipase 86 U/L (23-300); Potassium 4.3 mmoL/L (3.5-5.1); Sodium 142 mmol/L (136-145)
== END 2023-10-16 23:59 ==
LOC: LAB 11:09
PROVIDERS: PCP Internal Medicine; Visit Provider Nurse Practitioner
DX: I51.89 Other ill-defined heart diseases (principal); R11.0 Nausea
CPT/HCPCS: 36415; 80048; 82150; 83690

== ENCOUNTER 2023-11-03 13:26 | Outpatient (CLI) | payer MEDICARE, SELFPAY | END 2023-11-03 23:59 | PROVIDERS: PCP Internal Medicine; Visit Provider Internal Medicine | DX: J02.9 Acute pharyngitis, unspecified (principal) | CPT/HCPCS: 87070 ==

== ENCOUNTER 2023-11-19 14:21 | Outpatient (CLI) | payer MEDICARE, SELFPAY ==
--- NOTE | 2023-11-19 14:21 | MM_ITS ---
PROCEDURE INFORMATION: Exam: MG Bilateral Screening 3D Mammography Exam date and time: 11/19/2023 2:21 PM Age: 68 years old Clinical indication: Screening mammogram TECHNIQUE: Imaging protocol: Bilateral Screening tomosynthesis and 2D mammography including computer-aided detection (CAD) when performed. COMPARISON: 1. MG MM DIG SCREENING MAMM BI W/CAD 08/19/2022 2:48 PM 2. MG MM DIG SCREENING MAMM BI W/CAD 06/08/2021 3:19 PM 3. MG DMSB DIGITAL MAMM-SCREEN BILATERAL 06/17/2011 10:15 AM 4. MG DMSB DIGITAL MAMM-SCREEN BILATERAL 06/13/2010 10:31 AM FINDINGS: MAMMOGRAPHY: Breast composition: There are scattered areas of fibroglandular density. Mass: None. Architectural distortion: No new or suspicious architectural distortion. Calcifications: No new or suspicious calcifications are present Asymmetric density: No new or suspicious asymmetric density is present Skin thickening: None. Axillary adenopathy: None. IMPRESSION: No mammographic evidence of malignancy. Recommend annual screening mammography unless otherwise clinically indicated. ASSESSMENT: BI-RADS category 1: Negative.
== END 2023-11-19 23:59 ==
PROVIDERS: PCP Internal Medicine; Visit Provider Internal Medicine
DX: Z12.31 Encounter for screening mammogram for malignant neoplasm of breast (principal)
CPT/HCPCS: 77063; 77067

== ENCOUNTER 2023-12-19 09:47 | Outpatient (CLI) | payer MEDICARE, SELFPAY ==
[2023-12-19 09:54] LABS: Microscopic, Urine URINE MICROSCOPIC (MICROSCOPIC)
[2023-12-19 10:11] LABS: Hematocrit 40.3 % (37.0-47.0); Mean Corpuscular HGB Conc 32.1 g/dL (31.8-35.4); Mean Corpuscular Hemoglobin 29.8 pg (27.0-31.2); Mean Corpuscular Volume 92.7 fl (81-99); Platelet Count 261 K/mm3 (142-424); Red Blood Count 4.35 M/mm3 (4.20-5.40); Red Cell Distribution Width 15.7 % (11.5-17.5); White Blood Count 12.4 K/mm3 (4.8-10.8)
[2023-12-19 10:30] LABS: Appearance,Urine CLEAR (Clear); Bilirubin,Urine Negative (Negative); Blood, Urine Negative (Negative); Color,Urine YELLOW (Yellow); Glucose,Urine (UA) Negative (Negative); Ketones,Urine Negative (Negative); Leukocyte Esterase,Urine 1+ (Negative); Nitrate,Urine Negative (Negative); PH,Urine 7.5 (5.0-8.5); Protein,Urine Negative (Negative); Specific Gravity, Urine 1.015 (1.005-1.030); Urobilinogen,Urine 0.2 EU/dl (0.2)
[2023-12-19 10:40] LABS: Creatinine,Urine Random 54 mg/dL (Not Estab.)
[2023-12-19 11:53] LABS: Albumin Level 4.3 g/dl (3.5-5.0); Anion Gap 11.3 mEq/L (5-15); Bacteria,Urine Trace /lpf; Blood Urea Nitrogen 32 mg/dl (7-17); Calcium 10.6 mg/dl (8.4-10.2); Carbon Dioxide 33 mmol/L (22.0-30.0); Chloride 104 mmol/L (98-107); Estimated Glomerular Filt Rate 35 ml/min (>60); GFR (African American) 42 ML/MIN (>60); Phosphorous 3.7 mg/dl (2.5-4.5); Potassium 4.3 mmoL/L (3.5-5.1); Sodium 144 mmol/L (136-145)
[2023-12-19 12:04] LABS: Intact Parathyroid Hormone 169.7 pg/mL (7.5-53.5)
[2023-12-19 12:05] LABS: 25-OH Vitamin D, Total 35.3 ng/mL (30-100)
[2023-12-19 12:06] LABS: Glucose 42 mg/dl (74-100)
== END 2023-12-19 23:59 | disposition home or self-care (01) ==
LOC: LAB 09:48
PROVIDERS: PCP Internal Medicine; Visit Provider Nurse Practitioner
DX: N18.32 Chronic kidney disease, stage 3b (principal)
CPT/HCPCS: 36415; 80069; 81001; 82306; 82570; 83970; 84156; 85014; 85018; 85048; 85049; 87086

== ENCOUNTER 2023-12-23 10:03 | Outpatient (POV) | payer MEDICARE, SELFPAY | END 2023-12-23 23:59 | disposition home or self-care (01) | LOC: SC 10:04 | PROVIDERS: Visit Provider Nurse Practitioner | DX: Z00.00 Encounter for general adult medical examination without abnormal findings (principal) ==

== ENCOUNTER 2024-01-02 08:58 | Outpatient (CLI) | payer MEDICARE, SELFPAY ==
--- NOTE | 2024-01-02 09:01 | XR_ITS ---
FINAL REPORT CLINICAL HISTORY: OESTEOPOROSIS COMPARISON: 07/26/2021 FINDINGS: Using 3, the bone mineral density of the right forearm is 0.556 g/cm2, corresponding to T-score of -2.3 which is consistent with osteopenia. Previously was 0.570 with T-score of -2.1. Using the left hip, the bone mineral density of the femoral neck is 0.610 g/cm2, corresponding to a T-score of -2.2 which is consistent with osteopenia. Previously was 0.637 with T-score of -1.9. Using the right hip, the bone mineral density of the femoral neck is 0.771 g/cm2, corresponding to a T-score of -1.4 which is consistent with osteopenia. Previously was 0.679 with T-score of -1.5. NOTE: T-score: Standard deviation compared with peak bone mass of young adult mean. *Following the recommendations of the International Society of Bone densitometry, classification of hip BMD is based on the lower of two T-scores; total hip or femoral neck. IMPRESSION: Diminished bone mineral density consistent with osteopenia. Reviewed, Interpreted and Dictated by Kwasi Saavedra MD Transcribed by Farzaneh Velásquez Authenticated and [facility]
== END 2024-01-02 23:59 | disposition home or self-care (01) ==
LOC: RAD 08:58
PROVIDERS: PCP Internal Medicine; Visit Provider Nurse Practitioner
DX: M81.0 Age-related osteoporosis without current pathological fracture (principal)
CPT/HCPCS: 77080

== ENCOUNTER 2024-03-15 16:06 | Outpatient (CLI) | payer MEDICARE, SELFPAY ==
[2024-03-15 16:28] LABS: Hemoglobin A1C 5.8 % (4.0-6.0)
[2024-03-15 16:53] LABS: Alanine Aminotransferase 29 U/L (12-78); Albumin Level 4.3 g/dl (3.5-5.0); Albumin/Globulin Ratio 1.7 (1.1-1.8); Alkaline Phosphatase 74 U/L (38-126); Anion Gap 7.6 mEq/L (5-15); Aspartate Amino Transferase 30 U/L (14-36); Bilirubin,Total 0.5 mg/dl (0.2-1.3); Blood Urea Nitrogen 32 mg/dl (7-17); Calcium 9.9 mg/dl (8.4-10.2); Carbon Dioxide 34 mmol/L (22.0-30.0); Chloride 104 mmol/L (98-107); Chol/HDL Ratio 4.6 (1-3.5); Cholesterol 152 mg/dl (140-200); Estimated Glomerular Filt Rate 28 ml/min (>60); GFR (African American) 34 ML/MIN (>60); Globulin 2.5 g/dL (1.3-3.2); Glucose 89 mg/dl (74-100); HDL Cholesterol 33 mg/dl (40-60); Potassium 4.6 mmoL/L (3.5-5.1); Sodium 141 mmol/L (136-145); Total Protein,Serum 6.8 g/dl (6.3-8.2); Triglycerides 193 mg/dl (30-150); VLDL Cholesterol 39 mg/dL (0-40)
[2024-03-15 17:15] LABS: Direct LDL Cholesterol 78.26 mg/dL (100-129)
[2024-03-15 17:23] LABS: Thyroid Stimulating Hormone 0.87 uIU/mL (0.465-4.68)
[2024-03-15 17:45] LABS: Vitamin B12 > 1000 pg/mL (239-931)
[2024-03-15 17:47] LABS: Ferritin 124 ng/ml (11.1-264)
== END 2024-03-15 23:59 | disposition home or self-care (01) ==
LOC: LAB.DROPOF 16:06
PROVIDERS: PCP Nurse Practitioner Family; Visit Provider Nurse Practitioner Family
DX: E11.9 Type 2 diabetes mellitus without complications (principal); D64.9 Anemia, unspecified
CPT/HCPCS: 80053; 80061; 82607; 82728; 83036; 84443

== ENCOUNTER 2024-04-08 13:24 | Outpatient (CLI) | payer MEDICARE, SELFPAY ==
--- NOTE | 2024-04-08 13:25 | CT_ITS ---
FINAL REPORT TECHNIQUE: Axial images were obtained of the lumbar spine by computed tomography. Coronal and sagittal reconstruction process performed. This study was performed with techniques to keep radiation doses as low as reasonably achievable (ALARA). Individualized dose reduction techniques using automated exposure control or adjustment of mA and/or kV according to the patient''s size were employed. CLINICAL HISTORY: Lower back pain with numbness of bilateral LE FINDINGS: Lumbar scoliosis convex to the left measures 25 degrees. There is posterior fusion hardware bridging T11-L5. T12-L1: No significant disc bulge or protrusion. L1-2: No significant disc bulge or protrusion. L2-3: No significant disc bulge or protrusion. L3-4: Moderate diffuse disc bulge and endplate hypertrophy are present. There is mild bilateral neural foraminal narrowing. L4-5: Moderate endplate hypertrophy is present with mild to moderate bilateral neural foraminal narrowing. L5-S1: Moderate endplate hypertrophy is present. There is posterior osteophyte formation bilaterally, eccentrically greater on the left. There is [id number] right and moderate to high-grade left neural foraminal narrowing. IMPRESSION: Posterior fusion hardware bridging T11-L5. Degenerative disc disease, greatest at L5-S1 where there is moderate to high-grade left neural foraminal narrowing. Reviewed, Interpreted and Dictated by Kwasi Saavedra MD Transcribed by Luly Evans Authenticated and [facility]
== END 2024-04-08 23:59 | disposition home or self-care (01) ==
LOC: RAD 13:25
PROVIDERS: PCP Nurse Practitioner Family; Visit Provider Nurse Practitioner Family
DX: M54.16 Radiculopathy, lumbar region (principal); M54.50 Low back pain, unspecified; R20.0 Anesthesia of skin; G89.29 Other chronic pain; Z98.890 Other specified postprocedural states
CPT/HCPCS: 72131

== ENCOUNTER 2024-04-14 13:22 | Outpatient (POV) | payer MEDICARE, SELFPAY | END 2024-04-14 23:59 | disposition home or self-care (01) | LOC: SC 13:22 | PROVIDERS: Visit Provider Specialist/Technologist | DX: Z00.00 Encounter for general adult medical examination without abnormal findings (principal) ==

== ENCOUNTER 2024-04-21 11:16 | Outpatient (CLI) | payer MEDICARE, SELFPAY ==
--- NOTE | 2024-04-21 11:19 | XR_ITS ---
FINAL REPORT CLINICAL HISTORY: lower thoracic back pain FINDINGS: THORACIC SPINE Three views demonstrate no acute fracture. There are moderate degenerative changes with multilevel osteophytes. Mild rightward curvature is identified. There is no malalignment. IMPRESSION: Moderate degenerative changes. Reviewed, Interpreted and Dictated by Cliff Ngo III, MD Transcribed by Luly Evans Authenticated and . [facility]
== END 2024-04-21 23:59 | disposition home or self-care (01) ==
LOC: RAD 11:17
PROVIDERS: PCP Internal Medicine; Visit Provider Nurse Practitioner Family
DX: M54.6 Pain in thoracic spine (principal); Z98.890 Other specified postprocedural states
CPT/HCPCS: 72072

== ENCOUNTER 2024-05-11 14:11 | Outpatient (CLI) | payer MEDICARE, SELFPAY ==
--- NOTE | 2024-05-11 14:11 | CT_ITS ---
FINAL REPORT CLINICAL HISTORY: lower thoracic back pain. Hx of scoliosis. FINDINGS: Axial CT images of the thoracic spine were obtained without contrast. Sagittal and coronal reformatted images were also obtained. This study was performed with techniques to keep radiation doses as low as reasonably achievable (ALARA). Individualized dose reduction techniques using automated exposure control or adjustment of mA and/or kV according to the patient's size were employed. No fracture is identified. There is mild rightward curvature. There are moderate degenerative changes with multilevel osteophytes. Multiple bilateral renal masses are identified which do not appear to be simple cysts measuring up to 41 mm. IMPRESSION: No fracture or acute bony abnormality. Bilateral renal masses as above. Recommend renal mass protocol CT to further evaluate. Reviewed, Interpreted and Dictated by Cliff Ngo III, MD Transcribed by Luly Evans Authenticated and [facility]
== END 2024-05-11 23:59 | disposition home or self-care (01) ==
LOC: RAD 14:11
PROVIDERS: PCP Internal Medicine; Visit Provider Nurse Practitioner Family
DX: M54.6 Pain in thoracic spine (principal); Z98.890 Other specified postprocedural states
CPT/HCPCS: 72128

== ENCOUNTER 2024-05-24 12:42 | Outpatient (CLI) | payer MEDICARE, SELFPAY ==
[2024-05-24 13:41] LABS: Blood Urea Nitrogen 33 mg/dl (7-17); Estimated Glomerular Filt Rate 35 ml/min (>60); GFR (African American) 42 ML/MIN (>60)
== END 2024-05-24 23:59 | disposition home or self-care (01) ==
LOC: LAB 12:43
PROVIDERS: Nurse Practitioner Family; PCP Internal Medicine; Visit Provider Nurse Practitioner Family
DX: N28.89 Other specified disorders of kidney and ureter (principal)
CPT/HCPCS: 36415; 82565; 84520

== ENCOUNTER 2024-05-31 09:03 | Outpatient (CLI) | payer MEDICARE, SELFPAY ==
--- NOTE | 2024-05-31 09:05 | CT_ITS ---
FINAL REPORT TECHNIQUE: Axial CT of the abdomen and pelvis, without and with IV contrast. This study was performed with techniques to keep radiation doses as low as reasonably achievable, (ALARA). Individualized dose reduction techniques using automated exposure control or adjustment of mA and/or kV according to the patient''s size were employed. CLINICAL HISTORY: Bilateral renal masses COMPARISON: CT thoracic spine dated 05/11/2024 FINDINGS: Abdomen: Lung bases are clear. Liver has an unremarkable CT appearance. The spleen, pancreas and adrenal glands are unremarkable. Precontrast imaging shows no renal stone disease. There is a 43 mm hyperdense mass in the posterior left kidney without definite enhancement which is likely a complex cyst. A hyperdense nodule in the left anterolateral kidney measures 10 mm and is compatible with a complex cyst. There is a 12 mm nonenhancing nodule in the right kidney compatible with a complex cyst. There are a few other smaller lesions in the right kidney without contrast enhancement. There is mild bilateral renal atrophy. No bowel obstruction or fluid collection is seen. Pelvis: The appendix is normal. Pelvic bowel loops are unremarkable. The patient is status post hysterectomy. No fluid collection or adenopathy is seen. IMPRESSION: Multiple bilateral renal lesions most of which are complex cyst. No evidence of renal neoplasm. Reviewed, Interpreted and Dictated by Farshad Shin MD Transcribed by Ria Singletary Authenticated and . [facility]
[2024-05-31] MEDS: IOPAMIDOL-370 (76%);100ML BOTTLE 75 ML IV (09:29)
[2024-05-31] MEDS: SODIUM CHLORIDE 0.9% 10ML SYR (RAD ONLY) 10 ML IV (09:29)
== END 2024-05-31 23:59 | disposition home or self-care (01) ==
LOC: RAD 09:05
PROVIDERS: PCP Internal Medicine; Visit Provider Nurse Practitioner Family
DX: N28.89 Other specified disorders of kidney and ureter (principal)
CPT/HCPCS: 74178; Q9967

== ENCOUNTER 2024-06-23 10:23 | Outpatient (CLI) | payer MEDICARE, SELFPAY ==
[2024-06-23 10:31] LABS: Microscopic, Urine URINE MICROSCOPIC (MICROSCOPIC)
[2024-06-23 10:47] LABS: Appearance,Urine CLEAR (Clear); Bilirubin,Urine Negative (Negative); Blood, Urine Negative (Negative); Color,Urine YELLOW (Yellow); Glucose,Urine (UA) Negative (Negative); Ketones,Urine Negative (Negative); Leukocyte Esterase,Urine 1+ (Negative); Nitrate,Urine Negative (Negative); Protein,Urine Negative (Negative); Urobilinogen,Urine 0.2 EU/dl (0.2)
[2024-06-23 10:59] LABS: Hematocrit 40.5 % (37.0-47.0); Hemoglobin 13.3 g/dL (12.2-16.2); Mean Corpuscular HGB Conc 32.9 g/dL (31.8-35.4); Mean Corpuscular Volume 91.4 fl (81-99); Platelet Count 210 K/mm3 (142-424); Red Blood Count 4.44 M/mm3 (4.20-5.40); Red Cell Distribution Width 15.1 % (11.5-17.5); White Blood Count 9.3 K/mm3 (4.8-10.8)
[2024-06-23 11:01] LABS: Bacteria,Urine Trace /lpf; Creatinine,Urine Random 102 mg/dL (Not Estab.); Microalbumin < 6.000 mg/L (0-16.7)
[2024-06-23 11:29] LABS: Chloride 106 mmol/L (98-107); Sodium 142 mmol/L (136-145)
[2024-06-23 11:30] LABS: Albumin Level 4.2 g/dl (3.5-5.0); Potassium 4.5 mmoL/L (3.5-5.1)
[2024-06-23 11:32] LABS: Anion Gap 8.5 mEq/L (5-15); Blood Urea Nitrogen 32 mg/dl (7-17); Carbon Dioxide 32 mmol/L (22.0-30.0); Estimated Glomerular Filt Rate 32 ml/min (>60); GFR (African American) 39 ML/MIN (>60)
[2024-06-23 11:33] LABS: Calcium 10.6 mg/dl (8.4-10.2); Phosphorous 2.6 mg/dl (2.5-4.5)
[2024-06-23 11:58] LABS: Glucose 42 mg/dl (74-100)
== END 2024-06-23 23:59 | disposition home or self-care (01) ==
LOC: LAB 10:24
PROVIDERS: PCP Internal Medicine; Visit Provider Nurse Practitioner
DX: N18.32 Chronic kidney disease, stage 3b (principal); N28.89 Other specified disorders of kidney and ureter
CPT/HCPCS: 36415; 80069; 81001; 82043; 82570; 84156; 85027; 87086

== ENCOUNTER 2024-07-02 11:48 | Outpatient (CLI) | payer MEDICARE, SELFPAY ==
[2024-07-02 11:57] LABS: Microscopic, Urine URINE MICROSCOPIC (MICROSCOPIC)
[2024-07-02 12:02] LABS: Appearance,Urine CLEAR (Clear); Bilirubin,Urine Negative (Negative); Blood, Urine Negative (Negative); Color,Urine YELLOW (Yellow); Glucose,Urine (UA) Negative (Negative); Ketones,Urine Negative (Negative); Leukocyte Esterase,Urine TRACE (Negative); Nitrate,Urine Negative (Negative); Protein,Urine Negative (Negative); Specific Gravity, Urine 1.015 (1.005-1.030); Urobilinogen,Urine 0.2 EU/dl (0.2)
[2024-07-02 12:36] LABS: Bacteria,Urine Trace /lpf; WBC,Urine Occasional #/hpf (0-3)
== END 2024-07-02 23:59 | disposition home or self-care (01) ==
LOC: LAB 11:51
PROVIDERS: PCP Internal Medicine; Visit Provider Nurse Practitioner
DX: N28.89 Other specified disorders of kidney and ureter (principal)
CPT/HCPCS: 81001

== ENCOUNTER 2025-01-18 14:39 | Outpatient (CLI) | payer MEDICARE, SELFPAY ==
[2025-01-18 15:17] LABS: Basophils # 0.1 K/mm3 (0-0.2); Basophils % 0.4 % (0.1-2.0); Eosinophils # 0.4 Kmm3 (0.0-0.4); Eosinophils % 3.1 % (0.1-12.0); Hematocrit 36.1 % (37.0-47.0); Hemoglobin 11.6 g/dL (12.2-16.2); Immature Granulocytes # 0.04 10^3uL; Immature Granulocytes % 0.3 %; Lymphocytes # 4.1 K/mm3 (0.7-4.5); Lymphocytes % 33.3 % (10-50); Mean Corpuscular HGB Conc 32.1 g/dL (31.8-35.4); Mean Corpuscular Hemoglobin 29.3 pg (27.0-31.2); Mean Corpuscular Volume 91.2 fl (81-99); Mean Platelet Volume 9.5 fl (7.4-10.4); Monocytes % 7.8 % (1.7-9.3); Neutrophils # 6.8 K/mm3 (1.8-7.8); Neutrophils % 55.1 % (37.0-80.0); Nucleated Red Blood Cells # 0 10^3/uL; Nucleated Red Blood Cells % 0 %; Platelet Count 225 K/mm3 (142-424); Red Blood Count 3.96 M/mm3 (4.20-5.40); Red Cell Distribution Width 14.2 % (11.5-17.5); Red Cell Distribution Width-SD 47.6 fL; White Blood Count 12.4 K/mm3 (4.8-10.8)
[2025-01-18 16:04] LABS: Albumin Level 4.3 g/dl (3.5-5.0); Chloride 99 mmol/L (98-107); Potassium 4.6 mmoL/L (3.5-5.1); Sodium 141 mmol/L (136-145)
[2025-01-18 16:06] LABS: Blood Urea Nitrogen 65 mg/dl (7-17); Estimated Glomerular Filt Rate 14 ml/min (>60); GFR (African American) 17 ML/MIN (>60)
[2025-01-18 16:07] LABS: Alanine Aminotransferase 15 U/L (12-78); Alkaline Phosphatase 62 U/L (38-126); Anion Gap 12.6 mEq/L (5-15); Aspartate Amino Transferase 18 U/L (14-36); Bilirubin,Direct 0.2 mg/dl (0.0-0.4); Bilirubin,Indirect 0.1 mg/dL (0.0-0.9); Bilirubin,Total 0.3 mg/dl (0.2-1.3); Bilirubin,Unconjugated 0.2 mg/dL (0.0-1.1); Calcium 10.8 mg/dl (8.4-10.2); Carbon Dioxide 34 mmol/L (22.0-30.0); Cholesterol 155 mg/dl (140-200); Glucose 98 mg/dl (74-100); Magnesium 2.3 mg/dl (1.6-2.3); Total Protein,Serum 6.7 g/dl (6.3-8.2); Triglycerides 213 mg/dl (30-150); VLDL Cholesterol 43 mg/dL (0-40)
[2025-01-18 16:08] LABS: Chol/HDL Ratio 4.7 (1-3.5); HDL Cholesterol 33 mg/dl (40-60)
[2025-01-18 16:18] LABS: Direct LDL Cholesterol 72.03 mg/dL (100-129)
[2025-01-18 16:23] LABS: Free T4 (Free Thyroxine) 1.98 ng/dl (0.78-2.19)
[2025-01-18 16:37] LABS: Thyroid Stimulating Hormone < 0.02 uIU/mL (0.465-4.68)
== END 2025-01-18 23:59 | disposition home or self-care (01) ==
LOC: LAB 14:40
PROVIDERS: PCP Internal Medicine; Visit Provider Internal Medicine
DX: E78.5 Hyperlipidemia, unspecified (principal); I10 Essential (primary) hypertension; I65.23 Occlusion and stenosis of bilateral carotid arteries; R42 Dizziness and giddiness; I27.20 Pulmonary hypertension, unspecified; I77.9 Disorder of arteries and arterioles, unspecified
CPT/HCPCS: 80048; 80061; 80076; 83735; 84439; 84443; 85025

== ENCOUNTER 2025-01-25 08:40 | Outpatient (CLI) | payer MEDICARE, SELFPAY ==
--- OUTSIDE RECORDS SUMMARY | 2025-01-25 08:43 | XMS_ITS ---
Author Organization Unknown TREATMENT PLAN Planned Care Start Date Provider Encounter for Check-up [id number] [facility]
[2025-01-25 09:17] LABS: Basophils % 0.5 % (0.1-2.0); Eosinophils # 0.3 Kmm3 (0.0-0.4); Hematocrit 34.8 % (37.0-47.0); Hemoglobin 11.1 g/dL (12.2-16.2); Immature Granulocytes # 0.02 10^3uL; Immature Granulocytes % 0.2 %; Lymphocytes # 3.5 K/mm3 (0.7-4.5); Lymphocytes % 40.8 % (10-50); Mean Corpuscular HGB Conc 31.9 g/dL (31.8-35.4); Mean Corpuscular Hemoglobin 29.4 pg (27.0-31.2); Mean Corpuscular Volume 92.3 fl (81-99); Mean Platelet Volume 9.3 fl (7.4-10.4); Monocytes # 0.7 K/mm3 (0.1-1.0); Monocytes % 7.6 % (1.7-9.3); Neutrophils # 4.2 K/mm3 (1.8-7.8); Neutrophils % 47.9 % (37.0-80.0); Nucleated Red Blood Cells # 0 10^3/uL; Nucleated Red Blood Cells % 0 %; Platelet Count 203 K/mm3 (142-424); Red Blood Count 3.77 M/mm3 (4.20-5.40); Red Cell Distribution Width 14.5 % (11.5-17.5); Red Cell Distribution Width-SD 48.8 fL; White Blood Count 8.7 K/mm3 (4.8-10.8)
[2025-01-25 09:51] LABS: Chloride 103 mmol/L (98-107); Potassium 4.8 mmoL/L (3.5-5.1); Sodium 140 mmol/L (136-145)
[2025-01-25 09:53] LABS: Bilirubin,Unconjugated 0.3 mg/dL (0.0-1.1); Blood Urea Nitrogen 44 mg/dl (7-17); Estimated Glomerular Filt Rate 20 ml/min (>60); GFR (African American) 24 ML/MIN (>60)
[2025-01-25 09:54] LABS: Alanine Aminotransferase 13 U/L (12-78); Alkaline Phosphatase 57 U/L (38-126); Anion Gap 11.8 mEq/L (5-15); Aspartate Amino Transferase 18 U/L (14-36); Bilirubin,Direct 0.1 mg/dl (0.0-0.4); Bilirubin,Indirect 0.4 mg/dL (0.0-0.9); Bilirubin,Total 0.5 mg/dl (0.2-1.3); Calcium 10.2 mg/dl (8.4-10.2); Carbon Dioxide 30 mmol/L (22.0-30.0); Chol/HDL Ratio 4.3 (1-3.5); Cholesterol 128 mg/dl (140-200); Glucose 100 mg/dl (74-100); HDL Cholesterol 30 mg/dl (40-60); Total Protein,Serum 6.3 g/dl (6.3-8.2); Triglycerides 158 mg/dl (30-150); VLDL Cholesterol 32 mg/dL (0-40)
[2025-01-25 10:05] LABS: Direct LDL Cholesterol 57.68 mg/dL (100-129)
[2025-01-25 10:10] LABS: Free T4 (Free Thyroxine) 1.67 ng/dl (0.78-2.19)
[2025-01-25 10:25] LABS: Thyroid Stimulating Hormone < 0.02 uIU/mL (0.465-4.68)
== END 2025-01-25 23:59 | disposition home or self-care (01) ==
LOC: LAB 08:41
PROVIDERS: Nurse Practitioner; PCP Internal Medicine; Visit Provider Nurse Practitioner Family
DX: K21.9 Gastro-esophageal reflux disease without esophagitis (principal); E78.2 Mixed hyperlipidemia; I65.23 Occlusion and stenosis of bilateral carotid arteries; I25.119 Atherosclerotic heart disease of native coronary artery with unspecified angina pectoris; I11.9 Hypertensive heart disease without heart failure; I27.20 Pulmonary hypertension, unspecified; I70.1 Atherosclerosis of renal artery; I45.10 Unspecified right bundle-branch block; E11.9 Type 2 diabetes mellitus without complications; G47.33 Obstructive sleep apnea (adult) (pediatric); R93.1 Abnormal findings on diagnostic imaging of heart and coronary circulation; R06.09 Other forms of dyspnea; R11.0 Nausea; Z79.4 Long term (current) use of insulin; Z95.0 Presence of cardiac pacemaker; Z98.890 Other specified postprocedural states
CPT/HCPCS: 36415; 80048; 80061; 80076; 84439; 84443; 85025

== ENCOUNTER 2025-02-03 10:23 | Outpatient (CLI) | payer MEDICARE, SELFPAY ==
[2025-02-03 15:48] LABS: Anion Gap 14.7 mEq/L (5-15); Blood Urea Nitrogen 50 mg/dl (7-17); Calcium 10.7 mg/dl (8.4-10.2); Carbon Dioxide 36 mmol/L (22.0-30.0); Chloride 98 mmol/L (98-107); Estimated Glomerular Filt Rate 16 ml/min (>60); GFR (African American) 20 ML/MIN (>60); Glucose 80 mg/dl (74-100); Potassium 4.7 mmoL/L (3.5-5.1); Sodium 144 mmol/L (136-145)
== END 2025-02-03 23:59 | disposition home or self-care (01) ==
LOC: LAB.DROPOF 02-04 13:03
PROVIDERS: PCP Internal Medicine; Visit Provider Internal Medicine
DX: I10 Essential (primary) hypertension (principal)
CPT/HCPCS: 80048

== ENCOUNTER 2025-02-11 10:41 | Outpatient (CLI) | payer MEDICARE, SELFPAY ==
--- OUTSIDE RECORDS SUMMARY | 2024-11-11 10:45 | XMS_ITS | Encounter Summary ---
Author Organization [facility] Address [address] [place] [address] Care Team Providers Care Slag Motor Operator Name Role Phone Lilliam Readew Paige WING Primary Care Provider [phone] Reason for Visit * Reason Comments Follow-up Encounter Details Date Type Department Care Team ([facility] Contact Info) Description 11/11/2024 9:45 AM EST Office Visit Pav [facility] Res[facility] [address] [facility], [address]nd [place] [address] Nate Mosqueda MD [address] [facility] [address] [place] [address] Left thyroid nodule; Hyperparathyroidism (CMS/HCC) Social History Tobacco Use Types Packs/Day Years Used Date Smoking Tobacco: Never Smokeless Tobacco: Never Tobacco Cessation:Counseling Given: Not Answered Alcohol Use Standard Drinks/Week Comments Not Currently 0 (1 standard drink = 0.6 oz pure alcohol) Alcoholic Drinks/day: Never Drank Alcohol PHQ-2 Answer Date Recorded Patient Health Questionnaire-2 Score 1 08/05/2022 CAGE ASSESSMENT Answer Date Recorded Cage unable to access Not on file 08/12/2022 Cage max number of drinks Not on file 2021 Cage Beverages a week Not on file 08/12/2022 Have you ever felt you should CUT down on your d rinking? 0 08/12/2022 Have you been ANNOYED by people criticizing your drinking? 0 08/12/2022 Have you felt GUILTY about your drinking? 0 08/12/2022 Have you had a drink first t srinivasan in the morning ([employer]) to steady your nerves or to get rid of a hangover? 0 08/12/2022 CAGE Questionnaire Score 0 022 PHQ-2A Answer Date Recorded Patient Health Questionnaire-2 Score 1 08/05/2022 Comments No Sex and Gender Information Value Date Recorded Sex Assigned at Female 10/04/2024 10:44 AM EST Legal Sex Female 8:28 PM EDT Gender Identity Not on file Sexual Orientation Not on file documented as of this encounter Last Filed Vital Signs Vital Sign Reading Time Taken Comments Blood Pressure 107/70 11/11/2024 9:06 AM EST Pulse 76 11/11/2024 9:06 AM EST Temperature 36.6 C (97.8 F) 11/11/2024 9:06 AM EST Respiratory Rate 16 11/11/2024 9:06 AM EST Oxygen Saturation 96% 11/11/2024 9:06 AM EST Inhaled Oxygen Concentration - - Weight 112 kg (246 lb 11.1 oz) 11/11/2024 9:06 A M EST Height - - Body Mass Index 42.35 09/28/2024 1:42 PM EST documented in this encounter Miscellaneous Notes * Addendum Note - Leti Fragoso RN - 11/11/2024 9:45 AM ESTAddended by: LETI FRAGOSO on: 12/20/2024 04:25 PM Modules accepted: Orders * Progress Notes - Nate Mosqueda MD - 11/11/2024 9:45 AM EST Referring Physician: Nate Mosqueda MD [address] [facility] [address] [address] Patient Care Team Patient Care Team: Tavo Read DO as PCP - General Bobbi Robert is a 69 y.o. female. Subjective : Pt is POD #9 from completion thyroidectomy and parathyroidectomy for primary hyperparathyroidism. Path c/w nodular goiter and right inferior parathyroid. Separate nodule of hypertrophic thyroid found in paratracheal gutter as well. Her PTH dropped intra-op from 135 to 41. Unfortunatelyin PACU dropped to 9 and to <4 10/08/24. Calcium dropped and was stable in the normal range and she was discharged on tums and rocaltrol and dipped to 4.2 and is now back to low normal today at 4.6. She is taking her calcitriol daily and 2000 mg of ca carbonate TID. She continues to have cramping 2 times per week, but these episodes are far less intense. . She does report intermittent cramping in the calves. She intermittently uses a wheelchair due to her back and left knee. She denies numbness or tingling in her fingertips or around mouth. She reports normal v oice. She follows with Noam Dailey at [facility]. Oncology History Overview Note Thyroid goiter with primary hyperparathyroidism (Multiglandular) 2014 Right thyroid mass Goiter, dx with left vocal cord paralysis (Idiopathic) 2015 bx left thyroid nodule: benign. She was followed with repeat ultrasounds, 2019. U/S left-sided 4.6 x 3.2 cm lower pole nodule right-sided 1.6 x 1.3 mid pole nodule. Both of these were unchanged from [address] Dailey referred to [facility] for parathyroid management. mikala Mosqueda 07/18/24 [place] Left TVC paralysis, microDL augmentation with Prolaryn WAY. Excision of supraglotticmass. 11/07/21 [place] MICRO DL: Excision of redundant supraglottic tissue, Excision of prolaryn mass of left TV fold. 04/08/22 Ashlie refers to [facility] for hyperparathyroidism, CKD, Nephrolithiasis, chronic fatigue depression joint pain, no stone issues since 2017. High normal calcium, He felt this was due to CKD elected to see back if calcium elevated. 07/19/[address] Mosqueda with compressive symptoms and substernal goiter. 08/05/22 Parathyroid scan: No abnormal parathyroid seen. Left thyroid mass. 08/12/23 Left thyroidectomy for substernal goiter. Nl superior parathryoid seen, nerve did not stimulate. Path: benign Thyroid neoplasm 07/12/2023 Initial Diagnosis Thyroid neoplasm Performance Status: Symptomatic; fully ambulatory Pain Scale: 2 Nutrition Assessment Anthropometrics: Wt Readings from Last 3 Encounters: 11/11/24 112 kg (246 lb 11.1 oz) 10/13/24 113 kg (248 lb 3.8 oz) 10/08/24 114 kg (250 lb 7.1 oz) Ht Readings from Last 1 Encounters: 09/28/24 1.626 m (5' 4 ) BMI Readings from Last 1 Encounters: 11/11/24 42.35 kg/m?? Biochemical: Lab Results Component Value Date GLUCOSE 47 (LL) 11/11/2024 CALCIUM 8.6 (L) 11/11/2024 NA 145 11/11/2024 K 4.7 11/11/2024 CO2 29 11/11/2024 CL 106 11/11/2024 BUN 37 (H) 11/11/2024 CREATININE 1.87 (H) 11/11/2024 Objective Vital Signs for this encounter: Visit Vitals BP 107/70 (BP Location: Left arm, Patient Position: Sitting) Pulse 76 Temp 36.6 ??C (97.8 ??F) (Oral) Resp 16 Wt 112 kg (246 lb 11.1 oz) SpO2 96% BMI 42.35 kg/m?? OB Status Hysterectomy Smoking Status Never BSA 2.25 m?? BSA: 2.25 meters squared BMI: Body mass index is 42.35 kg/m??. Physical Exam: PHYSICAL EXAMINATION: GENERAL: Weight, BMI and Vital signs reviewed and recorded in EMR. Pt is awake, alert, non-toxic appearing, and in no acute distress. SKIN: No lesions suspicious for malignancy (ulcerated, cellulitic, or indurated lesions) of the head or neck skin. HEAD: Normocephalic and atraumatic. Sinuses are non-tender to palpation. EARS: The pinnas are well-formed. External auditory canals are non-stenotic bilaterally. EYES: Extraocular muscles are intact. The sclera and conjunctiva are normal. Pupils are equal and round. NOSE: The nasal dorsum is without scar or deformity. Anterior rhinoscopy reveals no mucopurulence or polyps. The septum is non-obstructing with nasal airways appearing patent bilaterally. ORAL CAVITY AND OROPHARYNX: The oral cavity and pharynx fail to reveal any mucosal masses or lesions. The floor of mouth is soft and tongue base is soft without masses. There is appropriate incisor opening. The palate elevates symmetrically. The uvula is midline. NECK: The neck is without masses. Salivary glands are without masses or induration. No crepitus or masses are appreciated. The trachea is in midline. Midline neck incision healing well and c/d/i LYMPHATIC: No palpable lymphadenopathy of the head or neck ENDOCRINE: thyroidectomy incision healing well. Drain removed. NEUROLOGICAL: Gerald Coma Score is 15. Cranial nerves II-, VIII-XII are grossly intact. The facial nerve (VII) has a House-Brackman Grade 1 of 6 bilaterally. There is no evidence of nystagmus or gross asymmetry on exam. There are no gross focal deficits PSYCHIATRIC: Pt is alert and oriented ??3. Mood and affect are normal and appropriate. CHEST: Breathing is non-labored without use of accessory muscles. There is symmetric chest wall expansion. CARDIOVASCULAR: Heart is regular. EXTREMITIES: No cyanosis or deformity. R>L leg swelling with pain upon palpation of calf. No notable erythema. Procedure: None Performed Results Personally Reviewed this visit by Dr. Mosqueda: New labs being drawn today CBC wnl, CMP: hypoglycemia, asymptomatic, CKD EGFR 29, Mg 2.6 Ical 4.6 TSH 0.02, T4 2.2 Impression/Plan: Primary hyper parathyroidism Calcium improved, but now leg cramps unclear if calcium related Continue rocaltrol and Ca Carbonate Pt has a very good ve teacher who We will ask to follow her current hypoparathyroidism. Continue levothyroxine. Post op healing well normal voice and larynx with stable left tvc paralysis F/U in 4 months (repeat labs only if unable to follow with Dr. Dailey) Right leg swelling with pain a. Venous duplex of right leg No DVT. Problem List Items Addressed This Visit Hyperparathyroidism (CMS/[facility]) Other Visit Diagnoses Left thyroid nodule Relevant Orders CBC and Differential (Completed) Comprehensive Metabolic Panel, Plasma (Completed) Thyroid Stimulating Hormone, Plasma (Completed) Free T4, Plasma (Completed) Magnesium, Plasma (Completed) No follow-ups on file. Past Medical History: Diagnosis Date Asthma Awareness under anesthesia Patient reports that one time she did not get enough anesthesia and woke up during surgery CHF (congestive heart failure) ([facility]) Chronic renal failure, stage 3 (moderate) (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 Coronary calcification by CT scan 03/2016 Last Assessment & Plan: Formatting of this note might be different from t Diabetes mellitus ([facility]) Essential hypertension 08/01/2014 Last Assessment & Plan: Hypertension is unchanged. Continue current treatment regimen. Blood pressure will be reassessed at the next regular appointment. Last Assessment & Plan: Formatting of this note might be different from theoriginal. Hypertension is unchanged. Continue current treatment regimen. 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 A1c okay at 5.6% but having more hypos now. Continue current treatment regimen. But decrease basal insulin by 10u. Diabetes will be reassessed in 3 months. Family History Problem Relation Name Age of Onset Colon cancer Mother Diabetes Mother Thyroid disease Mother Other (Post operative fever) Mother Patient reports mother possibly had a fever after surgery years ago. Diabetes Paternal Grandmother Thyroid disease Daughter Heart disease Other Hyperlipidemia Other Hypertension Other Obesity Other Stroke Other Anesthesia problems Neg Hx Past Surgical History: Procedure Laterality Date BACK SURGERY N/A Back Surgery from [email or web address] CARDIAC CATHETERIZATION CARDIAC PACEMAKER PLACEMENT N/A Pacemaker Placement from [email or web address] CHOLECYSTECTOMY N/A Cholecystectomy from [email or web address] HYSTERECTOMY N/A hysterectomy from [email or web address] THYROIDECTOMY, PARTIAL TONSILLECTOMY N/A Tonsillectomy from [facility] TUBAL LIGATION N/A Tubal Ligation from [facility] VOCAL CORD LATERALIZATION, ENDOSCOPIC APPROACH W/ MLB Social History Tobacco Use Smoking Status Never Smokeless Tobacco Never reports that she has never smoked. She has never used smokeless tobacco. She reports that she does not currently use alcohol. She reports that she does not use drugs. Allergies Allergen Reactions Codeine Itching Thallium Anaphylaxis Thalium for stress test Thalium for stress test Morphine Itching Morphine And Codeine Itching and Rash Has tolerated fentanyl, hydrocodone, and oxycodone during past admissions. Ciprofloxacin Hcl Other - please document in the comment field Couldn't move muscles, hurt. Spironolactone Other - please document in the comment field Current Outpatient Medications on File Prior to Visit Medication Sig Dispense Refill allopurinol (Zyloprim) 100 MG tablet 1 (one) time each day. aspirin 81 MG EC tablet Take 1 tablet (81 mg) by mouth daily. atorvastatin (Lipitor) 20 MG tablet Take by mouth every other day. Every other night bisoprolol (Zebeta) 10 MG tablet Take by mouth 1 (one) time each day. bumetanide (Bumex) 1 MG tablet Take 1 tablet (1 mg) by mouth 2 (two) times a day. 180 tablet 11 calcitriol (Rocaltrol) 0.5 MCG capsule Take 1 capsule (0.5 mcg) by mouth 1 (one) time each day. 60 capsule 3 calcium carbonate (Tums Ultra) 1000 MG chewable tablet Chew 2 tablets (2,000 mg) 3 (three) times a day. 180 tablet 11 diphenhydrAMINE-acetaminophen (Tylenol PM) 25-500 MG per tablet Take 2 tablets by mouth at night asneeded for sleep. HumaLOG 100 UNIT/ML injection vial 38 units with breakfast and 40 units with lunch and 70 units with dinner insulin detemir (Levemir) 100 UNIT/ML injection 75 Units nightly. . levothyroxine (Synthroid) 150 MCG tablet Take 1 tablet (150 mcg) by mouth 1 (one) time each day before breakfast. 30 tablet 11 losartan (Cozaar) 100 MG tablet Take 1 tablet (100 mg) by mouth daily. magnesium oxide (Mag-Ox) 400 (240 Mg) MG tablet Take 1 tablet (400 mg) by mouth daily. nitrofurantoin (Macrodantin) 50 MG capsule Take 1 capsule (50 mg) by mouth daily. nitroglycerin (NitrolinguaL) 0.4 MG/SPRAY spray omeprazole (PriLOSEC) [address] capsule every night. oxyCODONE (Roxicodone) 5 MG immediate release tablet Take 1 tablet (5 mg) by mouth every 4 (four) hours if needed for moderate pain. 40 tablet 0 potassium citrate CR (Urocit-K-10) 10 mEq ER tablet Take 1 tablet (10 mEq) by mouth 2 (two) times aday with meals. Do not crush, chew, or split. 180 tablet 1 Semaglutide, 1 MG/DOSE, (Ozempic, 1 MG/DOSE,) 4 MG/3ML solution pen-injector Inject 1 mg under the skin every 7 (seven) days. Takes weekly on Wednesdays. No current facility-administered medications on file prior to visit. Immunization History Administered Date(s) Administered Influenza, High-dose, Split Virus, Trivalent, Injectable, preservative free 06/20/2022, 08/23/2022 Influenza, high-dose, quadrivalent 06/20/2022, 08/23/2022, 05/27/2023 Influenza, injectable, quadrivalent, preservative free 06/14/2016 Moderna COVID-19 Vaccine (Director Records Management) 12+ years 10/21/2020, 11/19/2020, 06/30/2021 Moderna COVID-19 Vaccine Bivalent 6months+ 06/14/2022 Moderna Covid-19 Vaccine 12y+, Lorenzo Protein, Preservative free 07/16/2023 Rsv, Bivalent, Protein Subunit Rsvpref, Diluent Reconstituted, 0.5mL, PF 05/27/2023 Tdap 01/07/2017 Zoster, Recombinant 12/04/2023, 03/01/2024 RICK was reviewed and if narcotics were ordered as part of [facility] protocols. 14 point review of systems negative except as noted above. Review of Systems Nate Mosqueda MD documented in this encounter Plan of Treatment Upcoming Encounters Date Type Department Care Team ([facility] st Contact Info) Description 03/22/2025 9:45 AM EDT Office Visit Pav [facility] Head, Neck & Respiratory [address] [facility], [address] [place] [address] Nate Mosqueda MD [address] [facility] [address] [place] [address] 05/20/2025 8:40 AM EDT Office Visit [facility] [address] [place] [address] Hetal Robertson, OCCUPATIONAL PHYSICIAN [address] [place] [address] documented as of this encounter Procedures Procedure Name Priority Date/Time Associated Diagnosis Comments CBC WITH AUTO DIFFERENTIAL Routine 11/11/2024 11:06 AM EST Left thyroid nodule TSH Routine 11/11/2024 11:06 AM EST Left thyroid nodule FREE T4, PLASMA Routine 11/11/2024 11:06 AM EST Left thyroid nodule MAGNESIUM, PLASMA Routine 11/11/2024 11: 06 AM EST Left thyroid nodule COMPREHENSIVE METABOLIC PANEL, PLASMA Routine 11/11/2024 11:06 AM EST Left thyroid nodule documented in this encounter Results * (ABNORMAL) Magnesium, Plasma (11/11/2024 11:06 AM EST) Magnesium, Plasma 2.6(H) 1.9 - 2.4 mg/dL 11/11/2024 12:29 PM EST [facility] Blood Venous blood specimen / Unknown Venipuncture / Unknown 11/11/2024 11:06 AM EST 11/11/2024 11:28 AM EST us Nate Mosqueda MD LAB BLOOD ORDERABLES Final R esult [facility] [address] [place] [address] * (ABNORMAL) Free T4, Plasma (11/11/2024 11:06 AM EST) Free T4, Plasma 2.2(H) 0.8 - 1.7 ng/dL 11/11/2024 12:29 PM EST [facility] Blood Venous blood specimen / Unknown Venipuncture / Unknown 11/11/2024 11:06 AM EST 11/11/2024 11:28 AM EST Nate Mosqueda MD LAB BLOOD ORDERABLES Final R esult Performing Organization Address [facility]/ZIP Co de Phone Number [facility] [address] [place] [address] * (ABNORMAL) Thyroid Stimulating Hormone, Plasma (11/11/2024 11:06 AM EST) Pathologist [facility] Thyroid Stimulating Hormone, Plasma 0.02(L) 0.40 - 4.20 uIU/mL 11/11/2024 12:29 PM EST [facility] Blood Venous blood specimen / Unknown Venipuncture / Unknown 11/11/2024 11:06 AM EST 11/11/2024 11:28 AM EST Nate Mosqueda MD LAB BLOOD ORDERABLES Final R esult Performing Organization Address City/[facility]/ZIP Co de Phone Number [facility] [address] [place] [address] * (ABNORMAL) Comprehensive Metabolic Panel, Plasma (11/11/2024 11:06 AM EST) Glucose, Plasma 47(LL) 74 - 99 mg/dL 11/11/2024 12:29 PM EST [facility] BUN, Plasma 37(H) 8 - 23 mg/dL 11/11/2024 12:29 PM EST [facility] Creatinine, Plasma 1.87(H) 0.60 - 1.10 mg/dL 11/11/2024 12:29 PM EST [facility] BUN/Creatinine Ratio 20 11/11/2024 12:29 PM EST [facility] Sodium, Plasma 145 136 - 145 mmol/L 11/11/2024 12:29 PM EST [facility] Potassium, Plasma 4.7 3.6 - 4.9 mmol/L 11/11/2024 12:29 PM EST [facility] Chloride, Plasma 106 97 - 107 mmol/L 11/11/2024 12:29 PM EST [facility] CO2, Plasma 29 22 - 29 mmol/L 11/11/2024 12:29 PM EST [facility] Anion Gap 10 6 - 16 mmol/L 11/11/2024 12:29 PM EST [facility] Total Calcium, Plasma 8.6(L) 8.9 - 10.2 mg/dL 11/11/2024 12:29 PM EST [facility] Total Protein 6.9 6.3 - 7.9 g/dL 11/11/2024 12:29 PM EST [facility] Albumin, Plasma 4.1 3.5 - 5.2 g/dL 11/11/2024 12:29 PM EST [facility] AST, Plasma 18 10 - 35 U/L 11/11/2024 12:29 PM EST [facility] ALT, Plasma 15 10 - 35 U/L 11/11/2024 12:29 PM EST [facility] Alkaline Phosphatase, Plasma 77 46 - 142 U/L 11/11/2024 12:29 PM EST [facility] Total Bilirubin, Plasma 0.3 0.2 - 1.1 mg/dL 11/11/2024 12:29 PM EST [facility] eGFRcr 29.0 mL/min/1.7 3m*2 11/11/2024 12:29 PM EST [facility] Comment:Reported eGFRcr in m L/min/1.73m2 is based the CKD-EPI 2020 equation that does not use a race coefficient. Blood Venous blood specimen / Unknown Venipuncture / Unknown 11/11/2024 11:06 AM EST 11/11/2024 11:28 AM EST us Nate Mosqueda MD LAB BLOOD ORDERABLES Final R esult [facility] [address] [place] [address] * (ABNORMAL) CBC and Differential (11/11/2024 11:06 AM EST) [facility] WBC Count 10.12 3.70 - 10.30 10*3/uL LAB HEMATOLOGY METHOD 11/11/2024 1:04 PM [facility] RBC Count 4.04 3.90 - 5.20 10*6/uL LAB HEMATOLOGY METHOD 11/11/2024 1:04 PM [facility] HGB 12.1 11.2 - 15.7 g/dL LAB HEMATOLOGY METHOD 11/11/2024 1:04 PM [facility] HCT 37.4 34.0 - 45.0 % LAB HEMATOLOGY METHOD 11/11/2024 1:04 PM [facility] Platelet Count 204 155 - 369 10*3/uL LAB HEMATOLOGY METHOD 11/11/2024 1:04 PM [facility] MCV 93 79 - 98 fL LAB HEMATOLOGY METHOD 11/11/2024 1:04 PM [facility] MCH 30.0 26.0 - 32.0 pg LAB HEMATOLOGY METHOD 11/11/2024 1:04 PM [facility] MCHC 32.4 30.7 - 35.5 g/dL LAB HEMATOLOGY METHOD 11/11/2024 1:04 PM [facility] RDW 14.0 11.5 - 14.5 % LAB HEMATOLOGY METHOD 11/11/2024 1:04 PM [facility] MPV 10.0 8.8 - 12.5 fL LAB HEMATOLOGY METHOD 11/11/2024 1:04 PM [facility] nRBC 0.0 <=0.0 per 100 WBCs LAB HEMATOLOGY METHOD 11/11/2024 1:04 PM [facility] Differential Type Automated LAB HEMATOLOGY METHOD 11/11/2024 1:04 PM [facility] Neutrophils % 50 % LAB HEMATOLOGY METHOD 11/11/2024 1:04 PM [facility] Lymphocytes % 39 % LAB HEMATOLOGY METHOD 11/11/2024 1:04 PM [facility] Monocytes % 7 % LAB HEMATOLOGY METHOD 11/11/2024 1:04 PM [facility] Eosinophils % 3 % LAB HEMATOLOGY METHOD 11/11/2024 1:04 PM [facility] Basophils % 1 % LAB HEMATOLOGY METHOD 11/11/2024 1:04 PM [facility] Immature Granulocytes % 0 % LAB HEMATOLOGY METHOD 11/11/2024 1:04 PM EST [facility] Neutrophils Absolute 5.02 1.60 - 6.10 10*3/uL LAB HEMATOLOGY METHOD 11/11/2024 1:04 PM EST [facility] Lymphocytes Absolute 3.94(H) 1.20 - 3.90 10*3/uL LAB HEMATOLOGY METHOD 11/11/2024 1:04 PM EST [facility] Monocytes Absolute 0.73 0.30 - 0.90 10*3/uL LAB HEMATOLOGY METHOD 11/11/2024 1:04 PM EST [facility] Eosinophils Absolute 0.33 0.00 - 0.50 10*3/uL LAB HEMATOLOGY METHOD 11/11/2024 1:04 PM EST [facility] Basophils Absolute 0.06 0.00 - 0.10 10*3/uL LAB HEMATOLOGY METHOD 11/11/2024 1:04 PM EST [facility] Immature Granulocytes Absolute 0.04 0.00 - 0.06 10*3/uL LAB HEMATOLOGY METHOD 11/11/2024 1:04 PM EST [facility] Blood Venous blood specimen / Unknown Venipuncture / Unknown 11/11/2024 11:06 AM EST 11/11/2024 11:56 AM EST Narrative [facility] - 11/11/2024 1:04 PM EST Therapeutic decision making should be based on absolute values, rather than percentages. us Nate Mosqueda MD LAB BLOOD ORDERABLES Final R esult [facility] [address] [place] [address] documented in this encounter Visit Diagnoses Diagnosis Left thyroid nodule Hyperparathyroidism (CMS/HCC) Hyperparathyroidism, unspecified documented in this encounter Additional Health Concerns Assessment Noted Time PHQ-9 Depression Total Score: 15 07/19/2 022 1:26 PM EST A fall risk assessment has been complete d for the patient 11/11/2024 9:07 AM EST A Body Mass Index follow-up plan has been documented for the patient 10/09/2024 1:04 AM EST documented as of this encounter Care Teams Slag Motor Operator Relationship Specialty Start Date End Date Tavo Read DO [address] [place], [place] [address] PCP - General 11/11/24 documented as of this encounter
--- OUTSIDE RECORDS SUMMARY | 2024-12-31 08:20 | XMS_ITS | Encounter Summary ---
Author Organization [facility] Address [address] [place] [address] Care Team Providers Care Alarm Investigator Name Role Phone Jacek Tavo Paige WING Primary Care Provider [phone] Reason for Visit * Reason Comments Follow-up Pt is a 69 year old female that presents to the clinic on this date for a follow up for CKD. Pt states is having general pain that rates 5/10. Encounter Details Date Type Department Care Team ([facility] st Contact Info) Description 12/31/2024 8:20 AM EDT Office Visit [facility] [address] [place] [address] [place] [address] Hetal Robertson, FROZEN FOODS MANAGER [address] [address] CKD (chronic kidney disease) stage 4, GFR 15-29 ml/min (CMS/HCC) (Primary Dx); Diabetes mellitus due to underlying condition with diabetic chronic kidney disease, unspecified CKD stage, unspecified whether long-term insulin use (CMS/HCC); Essential hypertension; Nephrocalcinosis; Age [...] drink first t srinivasan in the morning (EYE-WILDLIFE ENFORCEMENT MAJOR) to steady your nerves or to get [...] and hypertension, here for followup in the [facility]. Baseline creatinine is between 1.5 [...] 5. DM2, follows with [facility]. Brower in [facility] negative. 6. Hypercalcemia/hyperparathyroidism- s/p parathyroidectomy 7. FVO, LE edema Bumex 2mg am 2mg PM Metoloazone 5mg three times per week RTC 4 mo with labs and litholink documented in this encounter Plan of Treatment Upcoming Encounters Date Type Department Care Team (Late st Contact Info) Description 03/22/2025 9:45 AM EDT Office Visit [facility] 800 [facility], 2nd [place] [address] Nate Mosqueda MD 800 [facility] [address] [place] [address] 05/20/2025 8:40 AM EDT Office Visit [facility] [address] [place] [address] Hetal Robertson, FROZEN FOODS MANAGER [address] [address] Scheduled Orders Name Type Priority [...] kidney disease, unspecified CKD stage, 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
--- OUTSIDE RECORDS SUMMARY | 2025-02-11 10:47 | XMS_ITS | Encounter Summary ---
Author Organization [facility] Address [address] 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) Social History Tobacco Use Types Packs/Day Years Used Date Smoking Tobacco: Never Smokeless Tobacco: Never Alcohol Use Standard Drinks/Week Comments No 0 (1 standard drink = 0.6 oz pure alcohol) Alcoholic Drinks/day: Never Drank Alcohol PHQ-2 Answer Date Recorded Patient Health Questionnaire-2 Score 2 04/08/2022 Comments No Sex and Gender Information Value Date Recorded Sex Assigned at Female 10/04/2024 10:44 AM EST Legal Sex Female 8:28 PM EDT Gender Identity Not on file Sexual Orientation Not on file documented as of this encounter Plan of Treatment Upcoming Encounters Date Type Department Care Team ([facility] Contact Info) Description 03/22/2025 9:45 AM EDT Office Visit [facility] 800 [facility], 2nd [place] [address] Nate Mosqueda MD 800 [facility] [address] [place] [address] 05/20/2025 8:40 AM EDT Office Visit [facility] [address] [address] Hetal Robertson, INTERPRETATIVE DANCER [address] [address] documented as of this encounter Visit Diagnoses Diagnosis Congenital anomalies of other endocrine glands- Primary documented in this encounter Additional Health Concerns Assessment Noted Time A fall risk assessment has been complete d for the patient 04/08/2022 10:41 AM EDT documented as of this encounter Care Teams Contracts Representative Relationship Specialty Start Date End Date Perry Askew MD PCP - General 02/11/22 07/02/23 Ricardo Lemons MD [address] [place] [address] [place] [address] PCP - General 07/03/23 11/10/24 Tavo Read DO [address] [place] [address] PCP - General 11/11/24 documented as of this encounter
--- OUTSIDE RECORDS SUMMARY | 2025-02-11 10:47 | XMS_ITS | Encounter Summary ---
Author Organization [facility] Address [address] [place] [address] Care Team Providers Care Prepared Foods Team Leader Name Role Phone Perry Askew MD Primary Care Provider [phone] Ricardo Lemons MD Primary Care Provider [phone] Tavo Read DO Primary Care Provider [phone] Encounter Details Date Type Department Care Team ([facility] Contact Info) Description 06/20/2022 Community [facility] Community Practice [address] [place] [address] Perry Askew MD [address] [place] [address] Congenital anomalies of other endocrine glands (Primary [...] Upcoming Encounters Date Type Department Care Team ([facility] Contact Info) Description 03/22/2025 9:45 AM EDT Office Visit [facility] 800 [facility], 2nd [place] [address] Nate Mosqueda MD 800 [facility] [address] [place] [address] 05/20/2025 8:40 AM EDT Office Visit [facility] [address] [address] Hetal Robertson, INTERNIST MEDICAL DOCTOR MD [address] [address] documented as of this encounter Visit Diagnoses Diagnosis 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
--- OUTSIDE RECORDS SUMMARY | 2025-02-11 10:47 | XMS_ITS | Encounter Summary ---
Author Organization [facility] Address [address] [place] [address] Care Team Providers Care Auto Phone Installer Name Role Phone Tavo Read Paige WING Primary Care Provider Encounter Details Date Type Department Care Team (Latest Contact Info) Description 12/31/2024 Travel Social History Tobacco Use Types Packs/Day Years Used Date Smoking Tobacco: Never Smokeless Tobacco: Never Alcohol Use Standard Drinks/Week Comments Not Currently [...] drink first t srinivasan in the morning (EYE-DISCHARGE PLANNER) to steady your nerves or to get [...] [facility] 800 [facility], 2nd [place] [address] Nate Mosqueda MD [address] [facility] [address] [place] [address] 05/20/2025 8:40 AM EDT Office Visit [facility] [address] [place] [address] Hetal Robertson, RIVET TAPPING MACHINE OPERATOR [address] [facility] [address] [place] [address] documented as of this encounter Visit Diagnoses Not on filedocumented in this encounter Additional Health Concerns Assessment Noted Time PHQ-9 Depression Total Score: 15 022 1:26 PM EST A fall risk assessment has been complete d for the patient 11/11/2024 9:07 AM EST A Body Mass Index follow-up plan has been documented for the patient 12/31/2024 8:56 AM EDT documented as of this encounter Care Teams Auto Phone Installer Relationship Specialty Start Date End Date Tavo Read DO [address] [address] [place] [address] PCP - General 11/11/24 documented as of this encounter
--- OUTSIDE RECORDS SUMMARY | 2025-02-11 10:47 | XMS_ITS | Encounter Summary ---
Author Organization [facility] Address [address] [place] [address] Care Team Providers Care Cattle Sorter Name Role Phone Perry Askew MD Primary Care Provider [phone] Ricardo Lemons MD Primary Care Provider [phone] Tavo Read DO Primary Care Provider [phone] Reason for Referral * Consultation (Routine) - Closed Specialty Diagnoses / Procedures Referred By Contirma t Referred To Contact Otolaryngology Diagnoses Congenital malformations of other endocrine glands Perry Askew MD Phone: tel: fax: Referral ID Status Reason Start Date Expiration Date V isits Requested Visits Authorized [id number] Closed Specialty Services Required 06/27/2022 12/27/2023 1 1 Encounter Details Date Type Department Care Team (Latest Contact Info) Description 06/27/2022 Community [facility] [address] [place] [address] Perry Askew MD [address] [place] [address] 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) Social [...] [facility] 800 [facility], 2nd [place] [address] Nate Mosqueda MD [address] [facility] [address] [place] [address] 05/20/2025 8:40 AM EDT Office Visit [facility] [address] [place] [address] Hetal Robertson, LAUNDRY AIDE [address] [facility] [address] [place] [address] Scheduled Referrals Name Type Priority Associated Diagnoses Orde r Schedule Ambulatory Referral to ENT Outpatient Referral Routine Congenital malformations of other endocrine glands Expected: 06/27/2022 (Approximate), Expires: 08/27/2022 documented as of this encounter Visit Diagnoses Diagnosis Congenital malformations of other endocrine glands- Primary documented in this encounter Additional Health Concerns Assessment Noted Time A fall risk assessment has been complete d for the patient 04/08/2022 10:41 AM EDT documented as of this encounter Care Teams Cattle Sorter Relationship Specialty Start Date End Date Perry Askew MD PCP - General 02/11/22 07/02/23 Ricardo Lemons MD [address] [facility] [place] [address] PCP - General 07/03/23 11/10/24 Tavo Read DO [address] [place] [address] PCP - General 11/11/24 documented as of this encounter
--- OUTSIDE RECORDS SUMMARY | 2025-02-11 10:47 | XMS_ITS | Encounter Summary ---
Author Organization [facility] Address [address] [place] [address] Care Team Providers Care Materials Planning Manager Name Role Phone Perry Askew MD Primary Care Provider [phone] Ricardo Lemons MD Primary Care Provider [phone] Tavo Read DO Primary Care Provider [phone] Encounter Details Date Type Department Care Team (Late Contact Info) Description 06/14/2022 Orders Only External Location [address] [place] [address] Provider, External Social History Tobacco Use Types Packs/Day Years [...] Encounters Date Type Department Care Team (Late Contact Info) Description 03/22/2025 9:45 AM EDT Office Visit [facility] 800 [facility], 2nd [place] [address] Nate Mosqueda MD [address] [facility] [address] [place] [address] 05/20/2025 8:40 AM EDT Office Visit [facility] [address] [place] [address] Hetal Robertson, DIRECTOR LIFE [address] [address] documented as of this encounter Procedures Procedure Name Priority Date/Time Associated Diagnosis Comments CT CHEST WO IV CONTRAST 06/14/2022 9:37 AM EDT documented in this encounter Results * CT Chest wo IV Contrast (06/14/2022 9:37 AM EDT) Anatomical Region Laterality Modality Chest Computed Tomogra phy 06/14/2022 9:37 AM EDT us External Provider IMG CT PROCEDURES Final Result documented in this encounter Visit Diagnoses Not on filedocumented in this encounter Additional Health Concerns Assessment Noted Time A fall risk assessment has been complete d for the patient 04/08/2022 10:41 AM EDT documented as of this encounter Care Teams Materials Planning Manager Relationship Specialty Start Date End Date Perry Askew MD PCP - General 02/11/22 07/02/23 Ricardo Lemons MD [address] [place] [address] [place] [address] PCP - General 07/03/23 11/10/24 Tavo Read DO [address] [place] [address] PCP - General 11/11/24 documented as of this encounter
--- OUTSIDE RECORDS SUMMARY | 2025-02-11 10:47 | XMS_ITS | Encounter Summary ---
Author Organization [facility] Address [address] [place] [address] Care Team Providers Care Model Artists' Name Role Phone JacekTavo Paige WING Primary Care Provider [phone] Encounter Details Date Type Department Care Team (Late st Contact Info) Description 01/28/2025 Telephone [facility] [address] [place] [address] Jacquie Garcia Social History Tobacco Use Types Packs/Day Years [...] drink first t srinivasan in the morning (EYE-AUTOMOBILE TAILLIGHT ASSEMBLER) to steady your nerves or to get [...] on file documented as of this encounter Miscellaneous Notes * Telephone Encounter - JoseJacquie adams Cuate - 01/28/2025 2:42 PM EDT Pt had labs done on 01/25/25 after stopping her diuretics due to a decrease in her kidney function. I got the labs today and Hetal reviewed them and they look better. I called pt to check and see if her PCP contacted her about the results and if they changed any of her medicines. She stated that they stopped her Bumex and replaced it with torsemide 20 mg daily. Also she is not taking metolazone 3 x times a week. She will be repeating labs on 02/17/25 through her PCP and I will be looking out for the results. Pt will contact us with any changes. documented in this encounter Plan of Treatment Upcoming Encounters Date Type Department Care Team (Late st Contact Info) Description 03/22/2025 9:45 AM EDT Office Visit [facility] 800 [facility], 2nd [place] [address] Nate Mosqueda MD 800 [facility] [address] [place] [address] 05/20/2025 8:40 AM EDT Office Visit [facility] [address] [place] [address] Hetal Robertson, TAR MAN [address] [address] documented as of this encounter [...] documented as of this encounter Care Teams Model Artists' Relationship Specialty Start Date End Date Tavo Read DO [address] [place] [address] PCP - General 11/11/24 documented as of this encounter
--- OUTSIDE RECORDS SUMMARY | 2025-02-11 10:47 | XMS_ITS | Clinical Summary ---
Author Organization [facility] Address [address] [place] [address] Care Team Providers Care Medical Transcriber Name Role Phone Tavo Read Paige WING Primary Care Provider [phone] Allergies Active Allergy Reactions Criticality Noted Date Comments Ciprofloxacin Hcl Other - please document in the comment field Low 07/14/2024 Couldn't move muscles, hurt. Codeine Itching High 03/30/2024 Morphine Itching Medium 09/17/2013 Morphine And Codeine Itching,Rash Medium 05/20/2016 Has tolerated fentanyl, hydrocodone, and oxycodone during past admissions. Spironolactone Other - please document in the comment field Low 03/30/2024 Thallium Anaphylaxis High 08/13/2021 Thalium for stress test Thalium for stress test Medications bisoprolol (Zebeta) 10 MG tablet Take by mouth 1 (one) time each day. 1 Active insulin detemir (Levemir) 100 UNIT/ML injection 75 Units nightly. . 7 Active nitroglycerin (NitrolinguaL) 0.4 MG/SPRAY spray 4 Active omeprazole (PriLOSEC) [address] capsule every night. 4 Active allopurinol (Zyloprim) 100 MG tablet 1 (one) time each day. 1 Active nitrofurantoin (Macrodantin) 50 MG capsule Take 1 capsule (50 mg) by mouth daily. 1 Active atorvastatin (Lipitor) 20 MG tablet Take by mouth every other day. Every other night 2 Active magnesium oxide (Mag-Ox) 400 (240 Mg) MG tablet Take 1 tablet (400 mg) by mouth daily. Active aspirin 81 MG EC tablet Take 1 tablet (81 mg) by mouth daily. Active Semaglutide, 1 MG/DOSE, (Ozempic, 1 MG/DOSE,) 4 MG/3ML solution pen-injector Inject 1 mg under the skin every 7 (seven) days. Takes weekly on Wednesdays. 3 Active HumaLOG 100 UNIT/ML injection vial 38 units with breakfast and 40 units with lunch and 70 units with dinner 3 Active potassium citrate CR (Urocit-K-10) 10 mEq ER tablet Take 1 tablet (10 mEq) by mouth 2 (two) times a day with meals. Do not crush, chew, or split. 180 tablet 1 4 06/25/20 25 Active diphenhydrAMINE -acetaminophen (Tylenol PM) 25-500 MG per tablet Take 2 tablets by mouth at night as needed for sleep. 4 Active losartan (Cozaar) 100 MG tablet Take 1 tablet (100 mg) by mouth daily. Active calcitriol (Rocaltrol) 0.5 MCG capsule Take 1 capsule (0.5 mcg) by mouth 1 (one) time each day. 60 capsule 3 5 Active calcium carbonate (Tums Ultra) 1000 MG chewable tablet Chew 2 tablets (2,000 mg) 3 (three) times a day. 180 tablet 11 5 10/13/19 26 Active levothyroxine (Synthroid) 150 MCG tablet Take 1 tablet (150 mcg) by mouth 1 (one) time each day before breakfast. 30 tablet 11 5 Active oxyCODONE (Roxicodone) 5 MG immediate release tablet Take 1 tablet (5 mg) by mouth every 4 (four) hours if needed for moderate pain. 40 tablet 5 Active Additional Information Patient not taking.Reported on 12/31/2024 Insulin Degludec (TRESIBA FLEXTOUCH SC) Inject 75 mg under the skin daily. Active bumetanide (Bumex) 1 MG tabletIndicatio ns:Hyperparathy roidism, secondary renal (CMS/HCC) Take 2 tablets by mouth 2 times a day. 180 tablet 11 5 Active metOLazone (Zaroxolyn) 5 MG tablet Take 1 tablet by mouth 3 times a week. 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 A1c okay at 5.6% but having more hypos now. Continue current treatment regimen. But decrease basal insulin by 10u. Diabetes will be reassessed in 3 months. Coronary artery disease invo lving [place] coronary artery with angina pectoris 05/20/2016 Overview (07/06/2021): Coronary calcification by CT scan 03/2016 Last Assessment & Plan: Continue cardiology follow up. Coronary calcification by CT scan 03/2016 Last Assessment & Plan: Continue cardiology follow up. Diabetes mellitus 05/20/2016 Hyperlipidemia 05/20/2016 Overview (07/06/2021): Last Assessment & Plan: Continue statin. Last Assessment & Plan: Continue statin. Chronic renal failure, stage 3 (moderate) 2013 Hypertension 08/01/2014 Overview (07/06/2021): Last Assessment & Plan: Hypertension is unchanged. Continue current treatment regimen. Blood pressure will be reassessed at the next regular appointment. Last Assessment & Plan: Hypertension is unchanged. Continue current treatment regimen. Blood pressure will be reassessed at the next regular appointment. Asthma Awareness under anesthesia Overview (09/10/2024): Patient reports that one time she did not get enough anesthesia and woke up during surgery CHF (congestive heart failure) Personal history of urinary calculi Overview (09/10/2024): History of renal calculi Resolved Problems Problem Noted Date Diagnosed Date Resolved Date Dysphagia, oropharyngeal phase 08/05/2022 12/18/2023 Hypercalcemia 09/05/2020 10/31/2021 Overview (07/06/2021): Last Assessment & Plan: Recent ionized calcium and phos were okay. PTH was elevated. She is seeing spinner tender later this month. Last Assessment & Plan: Recent ionized calcium and phos were okay. PTH was elevated. She is seeing spinner tender later this month. Nontoxic uninodular goiter 09/05/2020 0 10/31/2021 Overview (07/06/2021): Last Assessment & Plan: Check TSH next visit. Last Assessment & Plan: Check TSH next visit. Uncontrolled type 2 diabetes mellitus with hyperglycemia 09/05/2020 07/17/2021 Overview (07/06/2021): Last Assessment & Plan: Diabetes is unchanged. Continue current treatment regimen. Diabetes will be reassessed in 3 months. Last Assessment & Plan: Diabetes is unchanged. Continue current treatment regimen. Diabetes will be reassessed in 3 months. Left thyroid nodule 09/05/2020 12/18/19 24 Overview (07/19/2022): Last Assessment & Plan: She has been euthyroid. Having some compressive sxs. Scheduled to see ENT at in about 2 weeks. History of heart disorder 01/08/2018 Chest pain 05/20/2016 07/17/2021 Osteopenia 08/12/2014 10/31/2021 Renal calculi 08/12/2014 10/31/2021 Osteoporosis 08/01/2014 10/31/2021 Encounters Date Type Department Care Team Description 01/28/2025 Telephone [facility] [address] [place] [address] Jacquie Garcia 01/21/2025 Telephone [facility] Nephrology [address] [facility] [place] [address] Hetal Robertson APRN 12/31/2024 8:20 AM EDT Office Visit [facility] [address] [place] [address] Hetal Robertson, YORDY CKD (chronic kidney disease) stage 4, GFR 15-29 ml/min (CMS/HCC) (Primary Dx); Diabetes mellitus due to underlying condition with diabetic chronic kidney disease, unspecified CKD stage, 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nd [place] [address] Nate Mosqueda MD Left thyroid nodule; Hyperparathyroidism (CMS/HCC) 11/11/2024 9:30 AM EST Clinical Support [facility] [address] [facility]nd [place] [address] Left thyroid nodule; Hyperparathyroidism (CMS/HCC) 11/11/2024 Telephone [facility] [address] [facility]nd [place] [address] Nate Mosqueda MD 11/11/2024 Travel from Last 3 Months Immunizations Immunization Administration Dates Next Due Influenza, High-dose, Split Virus, Trivalent, Injectable, preservative free 08/23/2022,06/20/2022 Influenza, high-dose, quadrivalent 05/27/2023,,06/20/2022 Influenza, injectable, quadr ivalent, preservative free 06/14/2016 Influenza, trivalent, adjuvanted 06/17/2024 Moderna COVID-19 Vaccine (Re d Cap) 12+ years 06/30/2021,11/19/2020,10/21/2020 Moderna COVID-19 Vaccine Bivalent 6months+ 06/14 Moderna Covid-19 Vaccine 12y +, Lorenzo Protein, Preservative free 07/16/2023 Rsv, Bivalent, Protein Subun it Rsvpref, Diluent Reconstituted, 0.5mL, PF 05/27/2023 Tdap 01/07/2017 Zoster, Recombinant 03/01/2024,12/04/2023 Family History Medical History Relation Name Comments Thyroid disease Daughter Colon cancer Mother Diabetes Mother Post operative fever Mother Patient reports mother possibly had a fever after surgery years ago. Thyroid disease Mother Heart disease Other 1 Hyperlipidemia Other 2 Hypertension Other 3 Obesity Other 4 Stroke Other 5 Diabetes Paternal Grandmother Anesthesia problems Neg Hx Relation Name Status Comments Daughter Mother mom had fever a fter surgery. Was not a high fever, did not require ICU admission. This was 40+ yrs ago. Other 1 Other 2 Other 3 Other 4 Other 5 Paternal Grandmother Social History Tobacco Use Types Packs/Day Years [...] drink first t srinivasan in the morning (EYE-HONEYCOMB BLANKET MAKER) to steady your nerves or to get rid of a hangover? 0 08/12/2022 CAGE Questionnaire Score 0 022 PHQ-2A Answer Date Recorded Patient Health Questionnaire-2 Score 1 08/05/2022 Comments No Sex and Gender Information Value Date Recorded Sex Assigned at Female 10/04/2024 10:44 AM EST Legal Sex Female 8:28 PM EDT Gender Identity Not on file Sexual Orientation Not on file Last Filed Vital Signs Vital Sign Reading Time Taken Comments Blood Pressure 138/62 12/31/2024 8:25 AM EDT Pulse 80 12/31/2024 8:25 AM EDT Temperature 36.6 C (97.8 F) 11/11/2024 9:06 AM EST Respiratory Rate 18 12/31/2024 8:25 AM EDT Oxygen Saturation 98% 12/31/2024 8:25 AM EDT Inhaled Oxygen Concentration - - Weight 112 kg (246 lb) 12/31/2024 8:25 AM EDT Height 162.6 cm (5' 4 ) 12/31/2024 8:25 AM EDT Body Mass Index 42.23 12/31/2024 8:25 AM EDT Plan of Treatment Upcoming Encounters Date Type Department Care Team ([facility] st Contact Info) Description 03/22/2025 9:45 AM EDT Office Visit [facility] [address] [facility], [address]nd [place] [id number] Nate Mosqueda MD [address] [facility] [address] [place] [address] 05/20/2025 8:40 AM EDT Office Visit [facility] [address] [place] [address] Hetal Robertson, PERSONAL PROPERTY ASSESSOR [address] [facility] [address] [place] [address] Health Maintenance Due Date Last Done Comments [facility]-Bone Density Scan 1956 [facility]-Diabetes: Hemoglobin A1C 1956 [facility]-Hepatitis C Screening 1956 [facility]-Medicare Annual Wellness (AWV) 1955 [facility]-Infant/Child/Adol SDOH Screenings 1956 Diabetes: Dental Exam 1966 [facility]- SDOH Screenings 1974 [facility]-Adult SDOH Screenings 1974 [facility]-Pneumococcal Vaccine: 50+ Years (1 of 2 - PCV) 1975 CT Colonography 2001 Colonoscopy 2001 FIT-DNA 2001 FIT 2001 FOBT 2001 Sigmoidoscopy 2001 [facility]-Colorectal Cancer Screening 2001 [facility]-Breast Cancer Screening 2006 [facility]-Depression Screening 08/05/2023 08/05/2022, 07/09 [id number] Vaccine ( season) 2024 07/16/2023, 06/14/2022, 06/30/2021, Additional history exists [facility]-DTaP,Tdap,and Td Vaccines (2 - Td or Tdap) 01/07/2027 01/07/2017 [facility]-RSV Vaccine: 60+ Years or Completed 05/27/2023 [facility]-Zoster Vaccines Completed 03/01/2024, [facility]-Influenza Vaccine Completed 06/17/2024 , 05/27/2023, 08/23/2022, Additional history exists [facility]-Obesity Intervention Completed 025, 10/08/2024, 07/02/2024, Additional history exists HPV Vaccines Aged Out No longer eligi ble based on patient's age to complete this topic [facility]-HIB Vaccines Aged Out No longer e ligible based on patient's age to complete this topic [facility]-Hepatitis A Vaccines Aged Out No longer eligible based on patient's age to complete this topic [facility]-IPV Vaccines Aged Out No longer e ligible based on patient's age to complete this topic [facility]-Rotavirus Vaccines Aged Out No lo nger eligible based on patient's age to complete this topic Medical Devices Implanted Type Area Scrubber Operator Device Identifier Shelf Expiration Date Model / Serial / Lot Prolaryn Plus - [id number] - [id number] Implanted:Qty : 1 on 07/18/2021 by Claude Ruano MD at [facility] Implant N/A: Throat [id number] 02/10/2023 [id number] / [id number] / Tendril Mri Ra Lead [facility] [employer]-07/08/20 17 Implanted: (Quantity not on file) Lead Chest [employer] [id number] / / Tendril Mri Rv Lead [employer]-07/08/20 17 Implanted: (Quantity not on file) Lead Chest [employer] [id number] / / Assurity Mri [employer] Pacemaker- Implanted: (Quantity not on file) Pacemaker Chest [employer] [id number] / / Description:RA LEAD MODEL: [id number] RV LEAD MODEL: [id number] Procedures Procedure Name Priority Date/Time Associated Diagnosis Comments MAGNESIUM, PLASMA Routine 11/11/2024 11: 06 AM EST Left thyroid nodule FREE T4, PLASMA Routine 11/11/2024 11:06 AM EST Left thyroid nodule TSH Routine 11/11/2024 11:06 AM EST Left thyroid nodule COMPREHENSIVE METABOLIC PANEL, PLASMA Routine 11/11/2024 11:06 AM EST Left thyroid nodule CBC WITH AUTO DIFFERENTIAL Routine 11/11/2024 11:06 AM EST Left thyroid nodule IONIZED CALCIUM, SERUM Routine 9:13 AM EST Left thyroid nodule Hyperparathyroidis m (CMS/HCC) from Last 3 Months Results * (ABNORMAL) CBC and Differential (11/11/2024 11:06 AM EST) WBC Count 10.12 3.70 - 10.30 10*3/uL LAB HEMATOLOGY METHOD 11/11/2024 1:04 PM EST [facility] RBC Count 4.04 3.90 - 5.20 10*6/uL LAB HEMATOLOGY METHOD 11/11/2024 1:04 PM EST [facility] HGB 12.1 11.2 - 15.7 g/dL LAB HEMATOLOGY METHOD 11/11/2024 1:04 PM [facility] HCT 37.4 34.0 - 45.0 % LAB HEMATOLOGY METHOD 11/11/2024 1:04 PM [facility] Platelet Count 204 155 - 369 10*3/uL LAB HEMATOLOGY METHOD 11/11/2024 1:04 PM [facility] MCV 93 79 - 98 fL LAB HEMATOLOGY METHOD 11/11/2024 1:04 PM [facility] MCH 30.0 26.0 - 32.0 pg LAB HEMATOLOGY METHOD 11/11/2024 1:04 PM [facility] MCHC 32.4 30.7 - 35.5 g/dL LAB HEMATOLOGY METHOD 11/11/2024 1:04 PM [facility] RDW 14.0 11.5 - 14.5 % LAB HEMATOLOGY METHOD 11/11/2024 1:04 PM [facility] MPV 10.0 8.8 - 12.5 fL LAB HEMATOLOGY METHOD 11/11/2024 1:04 PM [facility] nRBC 0.0 <=0.0 per 100 WBCs LAB HEMATOLOGY METHOD 11/11/2024 1:04 PM [facility] Differential Type Automated LAB HEMATOLOGY METHOD 11/11/2024 1:04 PM [facility] Neutrophils % 50 % LAB HEMATOLOGY METHOD 11/11/2024 1:04 PM [facility] Lymphocytes % 39 % LAB HEMATOLOGY METHOD 11/11/2024 1:04 PM EST [facility] Monocytes % 7 % LAB HEMATOLOGY METHOD 11/11/2024 1:04 PM EST [facility] Eosinophils % 3 % LAB HEMATOLOGY METHOD 11/11/2024 1:04 PM EST [facility] Basophils % 1 % LAB HEMATOLOGY METHOD 11/11/2024 1:04 PM EST [facility] Immature Granulocytes % 0 % LAB HEMATOLOGY METHOD 11/11/2024 1:04 PM EST [facility] Neutrophils Absolute 5.02 1.60 - 6.10 10*3/uL LAB HEMATOLOGY METHOD 11/11/2024 1:04 PM EST [facility] Lymphocytes Absolute 3.94(H) 1.20 - 3.90 10*3/uL LAB HEMATOLOGY METHOD 11/11/2024 1:04 PM EST [facility] Monocytes Absolute 0.73 0.30 - 0.90 10*3/uL LAB HEMATOLOGY METHOD 11/11/2024 1:04 PM EST [facility] Eosinophils Absolute 0.33 0.00 - 0.50 10*3/uL LAB HEMATOLOGY METHOD 11/11/2024 1:04 PM EST [facility] Basophils Absolute 0.06 0.00 - 0.10 10*3/uL LAB HEMATOLOGY METHOD 11/11/2024 1:04 PM EST [facility] Immature Granulocytes Absolute 0.04 0.00 - 0.06 10*3/uL LAB HEMATOLOGY METHOD 11/11/2024 1:04 PM EST [facility] Blood Venous blood specimen / Unknown Venipuncture / Unknown 11/11/2024 11:06 AM EST 11/11/2024 11:56 AM EST Narrative [facility] - 11/11/2024 1:04 PM EST Therapeutic decision making should be based on absolute values, rather than percentages. us Nate Mosqueda MD LAB BLOOD ORDERABLES Final R esult [facility] [address] [place] [address] * (ABNORMAL) Thyroid Stimulating Hormone, Plasma (11/11/2024 11:06 AM EST) Thyroid Stimulating Hormone, Plasma 0.02(L) 0.40 - 4.20 uIU/mL 11/11/2024 12:29 PM EST [facility] Blood Venous blood specimen / Unknown Venipuncture / Unknown 11/11/2024 11:06 AM EST 11/11/2024 11:28 AM EST us Nate Mosqueda MD LAB BLOOD ORDERABLES Final R esult Performing Organization Address City/[facility]/ZIP Co de Phone Number [facility] [address] [place] [address] * (ABNORMAL) Free T4, Plasma (11/11/2024 11:06 AM EST) Free T4, Plasma 2.2(H) 0.8 - 1.7 ng/dL 11/11/2024 12:29 PM EST [facility] Blood Venous blood specimen / Unknown Venipuncture / Unknown 11/11/2024 11:06 AM EST 11/11/2024 11:28 AM EST us Nate Mosqueda MD LAB BLOOD ORDERABLES Final R esult Performing Organization Address City/[facility]/[place] [address] * (ABNORMAL) Magnesium, Plasma (11/11/2024 11:06 AM EST) Magnesium, Plasma 2.6(H) 1.9 - 2.4 mg/dL 11/11/2024 12:29 PM EST [facility] Blood Venous blood specimen / Unknown Venipuncture / Unknown 11/11/2024 11:06 AM EST 11/11/2024 11:28 AM EST us Nate Mosqueda MD LAB BLOOD ORDERABLES Final R esult Performing Organization Address City/[facility]/ZIP Co de Phone Number [facility] [address] [place] [address] * (ABNORMAL) Comprehensive Metabolic Panel, Plasma (11/11/2024 11:06 AM EST) Glucose, Plasma 47(LL) 74 - 99 mg/dL 11/11/2024 12:29 PM [facility] BUN, Plasma 37(H) 8 - 23 mg/dL 11/11/2024 12:29 PM [facility] Creatinine, Plasma 1.87(H) 0.60 - 1.10 mg/dL 11/11/2024 12:29 PM [facility] BUN/Creatinine Ratio 20 11/11/2024 12:29 PM [facility] Sodium, Plasma 145 136 - 145 mmol/L 11/11/2024 12:29 PM [facility] Potassium, Plasma 4.7 3.6 - 4.9 mmol/L 11/11/2024 12:29 PM [facility] Chloride, Plasma 106 97 - 107 mmol/L 11/11/2024 12:29 PM [facility] CO2, Plasma 29 22 - 29 mmol/L 11/11/2024 12:29 PM [facility] Anion Gap 10 6 - 16 mmol/L 11/11/2024 12:29 PM [facility] Total Calcium, Plasma 8.6(L) 8.9 - 10.2 mg/dL 11/11/2024 12:29 PM [facility] Total Protein 6.9 6.3 - 7.9 g/dL 11/11/2024 12:29 PM [facility] Albumin, Plasma 4.1 3.5 - 5.2 g/dL 11/11/2024 12:29 PM [facility] AST, Plasma 18 10 - 35 U/L 11/11/2024 12:29 PM [facility] ALT, Plasma 15 10 - 35 U/L 11/11/2024 12:29 PM [facility] Alkaline Phosphatase, Plasma 77 46 - 142 U/L 11/11/2024 12:29 PM [facility] Total Bilirubin, Plasma 0.3 0.2 - 1.1 mg/dL 11/11/2024 12:29 PM [facility] eGFRcr 29.0 mL/min/1.7 3m*2 11/11/2024 12:29 PM [facility] Comment:Reported eGFRcr in m L/min/1.73m2 is based the CKD-EPI 2020 equation that does not use a race coefficient. Blood Venous blood specimen / Unknown Venipuncture / Unknown 11/11/2024 11:06 AM EST 11/11/2024 11:28 AM EST Nate Mosqueda MD LAB BLOOD ORDERABLES Final R esult [facility] [address] [place] [address] * Ionized calcium, serum (11/11/2024 9:13 AM EST) Ionized Calcium, Serum 4.6 4.6 - 5.3 mg/dL LAB HEMATOLOGY METHOD 11/11/2024 9:47 AM EST [facility] Blood Venous blood specimen / Unknown Venipuncture / Unknown 11/11/2024 9:13 AM EST 11/11/2024 9:27 AM EST Nate Mosqueda MD LAB BLOOD ORDERABLES Final R esult [facility] [address] [place] [address] from Last 3 Months Insurance MEDICARE [facility] Advance Directives * Full Code (Latest Code Status on File) Date Activated Date Inactivated Comments 10/04/2024 7:25 PM 10/07/2024 10:34 AM Question Answer Comments Patient has decision-making capacity? Yes * Full Code Date Activated Date Inactivated Comments 08/12/2022 1:46 PM 08/13/2022 12:30 PM Question Answer Comments Patient has decision-making capacity? Yes Care Teams Medical Transcriber Relationship Specialty Start Date End Date Tavo Read DO [address] [place] [address] [place] [address] PCP - General 11/11/24
--- OUTSIDE RECORDS SUMMARY | 2025-02-11 10:47 | XMS_ITS | Encounter Summary ---
Author Organization Healthcare Address [address] [place] [address] Care Team Providers Care Gauge Checker Name Role Phone Ricardo Lemons MD Primary Care Provider [phone] Tavo Read DO Primary Care Provider [phone] Reason for Visit * Reason Comments Med Refill Encounter Details Date Type Department Care Team ([facility] st Contact Info) Description 03/29/2024 Refill [facility] [address] [place] [address] Hetal Robertson, CHEF DE CUISINE [address] [address] Social History Tobacco Use Types Packs/Day Years [...] drink first t srinivasan in the morning (EYE-TECHNOLOGY INSTRUCTOR) to steady your nerves or to get [...] [facility] [address] [facility]nd [place] [address] Nate Mosqueda MD [address] [facility] [address] [place] [address] 05/20/2025 8:40 AM EDT Office Visit [facility] [address] [facility] [address] [place] [address] Hetal Robertson, CHEF DE CUISINE [address] [facility] [address] [place] [address] documented as of this encounter Visit Diagnoses Not on filedocumented in this encounter Additional Health Concerns Assessment Noted Time PHQ-9 Depression Total Score: 15 022 1:26 PM EST A fall risk assessment has been complete d for the patient 12/23/2023 10:17 AM EDT A Body Mass Index follow-up plan has been documented for the patient 12/23/2023 10:46 AM EDT documented as of this encounter Care Teams Gauge Checker Relationship Specialty Start Date End Date Ricardo Lemons MD [address] [facility] [address] PCP - General 07/03/23 11/10/24 Tavo Read DO [address] [place] [address] PCP - General 11/11/24 documented as of this encounter
--- OUTSIDE RECORDS SUMMARY | 2025-02-11 10:47 | XMS_ITS | Encounter Summary ---
Author Organization Healthcare Address [address] [place] [address] Care Team Providers Care Clamshell Operator Name Role Phone Lilliam Readew Paige WING Primary Care Provider [phone] Encounter Details Date Type Department Care Team ([facility] st Contact Info) Description 01/21/2025 Telephone [facility] Nephrology [address] [place] [address] Hetal Robertson, PHOTOENGRAVER [address] [address] Social History Tobacco Use Types [...] drink first t srinivasan in the morning (EYE-COMPUTER NETWORKING INSTRUCTOR ADJUNCT) to steady your nerves or to get [...] encounter Miscellaneous Notes * Telephone Encounter - Hetal Robertson APRN - 01/21/2025 3:37 PM EDT Patient notified clinic of worsening renal function with labwork completed by Van Helper. Creatinine up to 3, egfr 14. Van Helper held bumex and metolazone. No improvement or worsening of edema. She is to repeat labs next week. Patient also noted chronic low back resolved with discontinuation of Bumex. May consider torsemide once diuretics are to be resumed. Will follow labs next week and will adjust follow up appointment as needed documented in this encounter Plan of Treatment Upcoming Encounters Date Type Department Care Team (Late st Contact Info) Description 03/22/2025 9:45 AM EDT Office Visit [facility] 800 [facility], 2nd [place] [address] Nate Mosqueda MD 800 [facility] [address]nd [place] [address] 05/20/2025 8:40 AM EDT Office Visit [facility] [address] [place] [address] Hetal Robertson APRN [address] [address] documented as of this encounter [...] documented as of this encounter Care Teams Clamshell Operator Relationship Specialty Start Date End Date Tavo Read DO [address] [place] [address] PCP - General 11/11/24 documented as of this encounter
--- OUTSIDE RECORDS SUMMARY | 2025-02-11 10:47 | XMS_ITS | Clinical Summary ---
Author Organization [facility] Address [address] [place] [address] Phone Care Team Providers Care Furniture Sales Consultant Name Role Phone Unavailable Primary Care Provider Unavailabl e Social History Tobacco Use Types Packs/Day Years Used Date Smoking Tobacco: Never Assessed Comments Unknown Sex and Gender Information Value Date Recorded Sex Assigned at Not on file Legal Sex Female 10:22 AM EST Gender Identity Not on file Sexual Orientation Not on file Plan of Treatment Health Maintenance Due Date Last Done Comments Annual Wellness Exam 1959 Hepatitis C Screening 1974 Breast Cancer Screening 1996 Cologuard 2001 Colon Cancer Screening 2001 Colonoscopy 2001 FIT 2001 Sigmoidoscopy 2001 Virtual Colonography 2001 Pneumococcal Vaccine 50+ (1 of 1 - PCV) 2006 Zoster (1 of 2) 2006 Bone Density Screening 2021 COVID-19 Vaccine ( season) 2024 06/14/2022, 06/30/2021, 11/19/2020, Additional history exists Influenza Vaccine (Season Ended) 2025 06/20/2022, 06/20/2022, 06/14/2016 DTaP/TDaP/Td (2 - Td or Tdap) 01/07/2027 01/07/2017 Hepatitis B Vaccine Aged Out No longe r eligible based on patient's age to complete this topic Meningococcal B Vaccine Aged Out No l onger eligible based on patient's age to complete this topic Insurance [employer] PPO MEDICARE PART A HB on file
[2025-02-11 11:41] LABS: Alanine Aminotransferase 13 U/L (12-78); Albumin Level 4.2 g/dl (3.5-5.0); Alkaline Phosphatase 63 U/L (38-126); Aspartate Amino Transferase 18 U/L (14-36); Bilirubin,Direct 0.1 mg/dl (0.0-0.4); Bilirubin,Indirect 0.3 mg/dL (0.0-0.9); Bilirubin,Total 0.4 mg/dl (0.2-1.3); Bilirubin,Unconjugated 0.2 mg/dL (0.0-1.1); Total Protein,Serum 6.7 g/dl (6.3-8.2)
[2025-02-11 11:44] LABS: Anion Gap 10.6 mEq/L (5-15); Blood Urea Nitrogen 45 mg/dl (7-17); Calcium 11.3 mg/dl (8.4-10.2); Carbon Dioxide 34 mmol/L (22.0-30.0); Chloride 102 mmol/L (98-107); Estimated Glomerular Filt Rate 18 ml/min (>60); GFR (African American) 21 ML/MIN (>60); Glucose 78 mg/dl (74-100); Potassium 4.6 mmoL/L (3.5-5.1); Sodium 142 mmol/L (136-145)
== END 2025-02-11 23:59 | disposition home or self-care (01) ==
LOC: LAB 10:42
PROVIDERS: PCP Internal Medicine; Visit Provider Internal Medicine
DX: I25.10 Atherosclerotic heart disease of native coronary artery without angina pectoris (principal); I11.9 Hypertensive heart disease without heart failure
CPT/HCPCS: 36415; 80048; 80076

== ENCOUNTER 2025-02-23 11:39 | Outpatient (CLI) | payer MEDICARE, SELFPAY ==
--- OUTSIDE RECORDS SUMMARY | 2024-12-31 08:20 | XMS_ITS | Encounter Summary ---
Author Organization [facility] Address [address] [place] [address] Care Team Providers Care Hoop Coiler Name Role Phone Jacek Tavo Paige WING Primary Care Provider [phone] Reason for Visit * Reason Comments Follow-up Pt is a 69 year old female that presents to the clinic on this date for a follow up for CKD. Pt states is having general pain that rates 5/10. Encounter Details Date Type Department Care Team ([facility] st Contact Info) Description 12/31/2024 8:20 AM EDT [facility] [address] [place] [address] Hetal Robertson, REACH TRUCK OPERATOR [address] [address] CKD (chronic kidney disease) stage 4, GFR 15-29 ml/min (CMS/HCC) (Primary Dx); Diabetes mellitus due to underlying condition with diabetic chronic kidney disease, unspecified CKD stage, unspecified whether skilled nursing insulin use (CMS/HCC); Essential hypertension; Nephrocalcinosis; Age related osteoporosis, unspecified pathological fracture presence; History of parathyroidectomy; Hyperparathyroidism, secondary renal (CMS/HCC) Social History Tobacco Use Types Packs/Day [...] drink first t srinivasan in the morning (EYE-HOT METAL MIXER OPERATOR) to steady your nerves or to get [...] Sign Reading Time Taken Comments Blood Pressure 138/62 12/31/2024 8:25 AM EDT Pulse 80 12/31/2024 8:25 AM EDT Temperature - - Respiratory Rate 18 12/31/2024 8:25 AM EDT Oxygen Saturation 98% 12/31/2024 8:25 AM EDT Inhaled Oxygen Concentration - - Weight 112 kg (246 lb) 12/31/2024 8:25 AM EDT Height 162.6 cm (5' 4 ) 12/31/2024 8:25 AM EDT Body Mass Index 42.23 12/31/2024 8:25 AM EDT documented in this encounter Miscellaneous Notes * Progress Notes - Hetal Robertson APRN - 12/31/2024 8:20 AM EDT CAROLANN Robert is a 69 y.o. female who presents for follow-up. history of type 2 diabetes and hypertension, here for followup in the [facility]. Baseline creatinine is between 1.5 and 2. She has a history of nephrolithiasis and hypocitraturia. She has h/o no coronary stents but required left renal stent. H/o RBBB, s/p PM. Question of a renal cyst, ?followed by urology. 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 Mosqueda, left hemithyroidectomy, substernal goiter resection No source of parathyroid identified Voice doing better She mentioned family member that has similar medical conditions, now needing dialysis Discussed DM control, reviewed weight loss could reduce risks, will discuss options with endocrine Chronic edema unchanged, not eating out much, reports low sodium intake 05/19/23 Notes increased incidents of dizziness with associated hypotension, BP 80s/40s. BP at home typecally 110-118/60s On Ozempic with 15lb weight loss No increased edema No additional medication changes No concerns noted by patient or family at chairside. 12/23/23 Evaluated by Oncology 08/23/23 for difficulty dysphagia and neck swelling Noted cricopharyngeal bar, no MRI or barium swallow concerns for tumur recurrence or cervical adenopathy. BMD rescheduled for next week Increased LE edema since stopping Ozempic Ozempic stopped due to severe constipation 06/2024 Feeling ok. Continues to have BLE. Has not followed with Urology and needs referral to new provideras previous retired. Currently with UTI symptoms 12/31/24 Now s/p parathyroidectomy, right thyroid lobectomy 10/04/24 On calcium and calcitriol. Bumex 2mg am and 2mg pm three to 5 times a week. Continues to have BLE edema OBJECTIVE Vitals: 12/31/24 0825 BP: 138/62 Pulse: 80 Resp: 18 SpO2: 98% PHYSICAL EXAMINATION CONSTITUTIONAL: Conversant, well developed, NAD. EYES: No proptosis or lid-lag. EARS: Normal hearing. RESPIRATORY: Normal respiratory effort. CARDIOVASCULAR: S1S2, + tr peripheral edema. EXTREMITIES: No edema. No cyanosis. SKIN: No rash. No lesions. No ulcers. MUSCULOSKELETAL: Normal gait and station. No digital cyanosis. NEURO: Cranial nerves II-XII grossly intact. LAB RESULTS 09/2022 Hemoglobin 13.5 sodium 143 potassium 4.4 bicarbonate 34 urea 38 creatinine 1.6 calcium 9.6 phosphorus 2.9 albumin 4.3 parathyroid 119 vitamin-D 43 urine protein 7 urine creatinine 102 Litholink 07/30 2.48 liter 56 calcium 385 citrate pH 6.773 05/13/23 Na 135, K 4.7, CO2 34, BUN 29, Cr 1.60, egfr 32, ca 9.8, PO4 3.6 Albumin 4.2 12/23/23 Hgb 13, K 4.3, BUN 32 Cr 1.5, Ca 10.6, PTH 169.7, vit d 35.3 06/23/24 Cr 1.6, calcium 10.6 11/11/24 Cr 1.87, calcium 8.6 ASSESSMENT/PLAN 1. Chronic kidney disease, stage IIIb, creat 1.8; lytes stable; no proteinuria; secondary to type 2diabetes, hypertension, infections. Stable 2. History of nephrolithiasis. 24 hour urine with low calcium but improved citrate; cont K citrate 2/day, high uop as tolerated; 3. HTN; 4. Osteoporosis per BMD 05/28, repeat BMD 2020 lowest -2.1; BTM down, held alendronate 2021 continued on 1000 units vitd repeat 5. DM2, follows with Dr. Brower in [facility] negative. 6. Hypercalcemia/hyperparathyroidism- s/p parathyroidectomy 7. FVO, LE edema Bumex 2mg am 2mg PM Metoloazone 5mg three times per week RTC 4 mo with labs and litholink documented in this encounter Plan of Treatment Upcoming Encounters Date Type Department Care Team (Late st Contact Info) Description 03/22/2025 9:45 AM EDT Office Visit [facility] [address] [facility], 2nd [place] [address] Nate Mosqueda MD 800 [facility] [address] [place] [address] 05/20/2025 8:40 AM EDT [facility] [address] [place] [address] Hetal Robertson, REACH TRUCK OPERATOR [address] [address] Scheduled Orders Name Type Priority Associated Diagnoses Orde r Schedule CBC W/O Differential Lab Routine CKD (chronic kidney disease) stage 4, GFR 15-29 ml/min (CMS/HCC) Expected: 12/31/2024 (Approximate), Expires: 07/02/2026 Protein, Random, Urine with Creatinine Lab Routine CKD (chronic kidney disease) stage 4, GFR 15-29 ml/min (CMS/HCC) Expected: 12/31/2024 (Approximate), Expires: 07/02/2026 PTH Intact Total Lab Routine CKD (chronic kidney disease) stage 4, GFR 15-29 ml/min (CMS/HCC) Expected: 12/31/2024 (Approximate), Expires: 07/02/2026 Renal Function Panel, Plasma Lab Routine CKD (chronic kidney disease) stage 4, GFR 15-29 ml/min (CMS/HCC) Expected: 12/31/2024 (Approximate), Expires: 07/02/2026 Urinalysis with reflex microscopic (Culture NOT Included) Lab Routine CKD (chronic kidney disease) stage 4, GFR 15-29 ml/min (CMS/HCC) Expected: 12/31/2024 (Approximate), Expires: 07/02/2026 Vitamin D 25 Hydroxy Lab Routine CKD (chronic kidney disease) stage 4, GFR 15-29 ml/min (CMS/HCC) Expected: 12/31/2024 (Approximate), Expires: 07/02/2026 Litholink urine kidney stone panel Lab Routine Nephrocalcinosis Expected: 12/31/2024 (Approximate), Expires: 07/02/2026 documented as of this encounter Visit Diagnoses Diagnosis CKD (chronic kidney disease) stage 4, GFR 15-29 ml/min (CMS/HCC)- Primary Chronic kidney disease, Stage IV (severe) Diabetes mellitus due to underlying condition with diabetic chronic kidney disease, unspecified CKD stage, unspecified whether skilled nursing insulin use (CMS/HCC) Essential hypertension Unspecified essential hypertension Nephrocalcinosis Other disorder of calcium metabolism Age related osteoporosis, unspecified pathological fracture presence History of parathyroidectomy Hyperparathyroidism, secondary renal (CMS/HCC) Secondary hyperparathyroidism (of renal origin) documented in this encounter Additional Health Concerns Assessment Noted Time PHQ-9 Depression Total Score: 15 022 1:26 PM EST A fall risk assessment has been complete d for the patient 11/11/2024 9:07 AM EST A Body Mass Index follow-up plan has been documented for the patient 12/31/2024 8:56 AM EDT documented as of this encounter Care Teams Hoop Coiler Relationship Specialty Start Date End Date Tavo Read DO [address] [place] [address] PCP - General 11/11/24 documented as of this encounter
--- OUTSIDE RECORDS SUMMARY | 2025-02-23 11:42 | XMS_ITS | Encounter Summary ---
Author Organization [facility] Address [address] [place] [address] Care Team Providers Care Resident Care Director Name Role Phone Tavo Read Paige WING Primary Care Provider [phone] Encounter Details Date Type Department Care Team [...] drink first t srinivasan in the morning (EYE-UROLOGIST MD) to steady your nerves or to get [...] [facility] 800 [facility], 2nd [place] [address] Nate Mosqueda MD [address] [facility] 2nd [place] [address] 05/20/2025 8:40 AM EDT Office Visit [facility] [address] [place] [address] Hetal Robertson, FUR BUYER [address] [facility] [address] [place] [address] documented as of this encounter [...] documented as of this encounter Care Teams Resident Care Director Relationship Specialty Start Date End Date Tavo Read DO [address] [place] [address] PCP - General 11/11/24 documented as of this encounter
--- OUTSIDE RECORDS SUMMARY | 2025-02-23 11:42 | XMS_ITS | Clinical Summary ---
Author Organization [facility] Address [address] [place] [address] Care Team Providers Care Carpentry Teacher Name Role Phone Tavo Read Paige WING Primary Care Provider [phone] Allergies Active Allergy Reactions Criticality Noted Date [...] 3 months. 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 PTH was elevated. She is seeing speed reading teacher later this month. Last Assessment & Plan: Recent ionized calcium and phos were okay. PTH was elevated. She is seeing speed reading teacher later this month. Nontoxic uninodular goiter 09/05/2020 [...] Type Department Care Team Description 01/28/2025 Telephone [facility] [address] [place] [address] Jacquie Garcia 01/21/2025 Telephone [facility] Nephrology [address] [facility] [place] [address] Hetal Robertson APRN 12/31/2024 8:20 AM EDT Office Visit [facility] [address] [place] [address] Hetal Robertson APRN CKD (chronic kidney disease) stage 4, GFR 15-29 ml/min (CMS/HCC) (Primary Dx); Diabetes mellitus due to underlying condition with diabetic chronic kidney disease, unspecified CKD stage, unspecified whether terminal gauger insulin use (CMS/HCC); Essential hypertension; Nephrocalcinosis; Age related osteoporosis, unspecified pathological fracture presence; History of parathyroidectomy; Hyperparathyroidism, secondary renal (CMS/HCC) 12/31/2024 Travel from Last 3 Months Immunizations Immunization [...] drink first t srinivasan in the morning (EYE-INDUSTRIAL SPECIALIST) to steady your nerves or to get [...] [facility] 800 [facility], 2nd [place] [address] Nate Mosqueda MD 800 [facility] 2nd [place] [address] 05/20/2025 8:40 AM EDT Office Visit [facility] [address] [place] [address] Hetal Robertson, GROUP CONTRACT ANALYST [address] [facility] [address] [place] [address] Health Maintenance Due Date Last [...] Screening 2006 UKY-Depression Screening 08/05/2023 08/05/2022, 07/09 [id number] Vaccine ( season) 2024 07/16/2023, 06/14/2022, 06/30/2021, [...] this topic Medical Devices Implanted Type Area End User Support Specialist Device Identifier Shelf Expiration Date Model / Serial / Lot Albinaryn Plus - [id number] - [id number] Implanted:Qty : 1 on 07/18/2021 by Claude Ruano MD at [facility] Implant N/A: Y[id number] 02/10/2023 [id number] / [id number] / Tendril Mri Ra Lead [facility] [employer]-07/08/20 17 Implanted: (Quantity not on file) Lead Chest [employer] [id number] / / Tendril Mri Rv Lead [employer]-07/08/20 17 Implanted: (Quantity not on file) Lead Chest [employer] [id number] / / Assurity Mri [employer] Pacemaker- Implanted: (Quantity not on file) Pacemaker Chest [employer] [id number] / / Description:RA LEAD MODEL: [id number] RV LEAD MODEL: [id number] [place] [address] [facility] Advance Directives * Full Code (Latest Code Status on File) Date Activated Date Inactivated Comments 10/04/2024 7:25 PM 10/07/2024 10:34 AM Question Answer Comments Patient has decision-making capacity? Yes * Full Code Date Activated Date Inactivated Comments 08/12/2022 1:46 PM 08/13/2022 12:30 PM Question Answer Comments Patient has decision-making capacity? Yes Care Teams Carpentry Teacher Relationship Specialty Start Date End Date Tavo Read DO [address] [place] [address] PCP - General 11/11/24
--- OUTSIDE RECORDS SUMMARY | 2025-02-23 11:42 | XMS_ITS | Encounter Summary ---
Author Organization [facility] Address [address] [place] [address] Care Team Providers Care Manager Database Administration Name Role Phone Perry Askew MD Primary Care Provider [phone] Ricardo Lemons MD Primary Care Provider [phone] Tavo Read DO Primary Care Provider [phone] Reason for Referral * Consultation (Routine) - Closed Specialty Diagnoses / Procedures Referred By Contirma t Referred To Contact Otolaryngology Diagnoses Congenital malformations of other endocrine glands Perry Askew MD Phone: tel: fax: Referral ID Status Reason Start Date Expiration Date V isits Requested Visits Authorized [id number] Closed Specialty Services Required 06/27/2022 12/27/2023 1 1 Encounter Details Date Type Department Care Team (Latest Contact Info) Description 06/27/2022 Community [facility] Practice [address] [place] [address] Perry Askew MD [address] [place] [address] Congenital malformations of other endocrine glands (Primary [...] [facility] Respiratory 800 [facility], 2nd [place] [address] Nate Mosqueda MD [address] [facility] 2nd [place] [address] 05/20/2025 8:40 AM EDT Office Visit [facility] [address] [place] [address] Hetal Robertson, AUTOMATION ANALYST [address] [facility] [address] [place] [address] Scheduled Referrals Name Type Priority [...] documented as of this encounter Care Teams Manager Database Administration Relationship Specialty Start Date End Date Perry Askew MD PCP - General 02/11/22 07/02/23 Ricardo Lemons MD [address] [facility] [place] [address] PCP - General 07/03/23 11/10/24 Tavo Read DO [address] [place] [address] PCP - General 11/11/24 documented as of this encounter
--- OUTSIDE RECORDS SUMMARY | 2025-02-23 11:42 | XMS_ITS | Encounter Summary ---
Author Organization Healthcare Address [address] [place] [address] Care Team Providers Care Bar Welder Name Role Phone Ricardo Lemons MD Primary Care Provider [phone] Tavo Read DO Primary Care Provider [phone] Reason for Visit * Reason Comments Med Refill Encounter Details Date Type Department Care Team ([facility] st Contact Info) Description 03/29/2024 Refill [facility] [address] [place] [address] Hetal Robertson, SPONGE FISHERMAN [address] [address] Social History Tobacco Use Types [...] drink first t srinivasan in the morning (EYE-CABLE SWAGER) to steady your nerves or to get [...] [facility] 800 [facility], 2nd [place] [address] Nate Mosqueda MD [address] [facility] 2nd [place] [address] 05/20/2025 8:40 AM EDT Office Visit [facility] [address] [facility] [address] [place] [address] Hetal Robertson, SPONGE FISHERMAN [address] [facility] [address] [place] [address] documented as of this encounter [...] documented as of this encounter Care Teams Bar Welder Relationship Specialty Start Date End Date Ricardo Lemons MD [address] [facility] [address] PCP - General 07/03/23 11/10/24 Tavo Read DO [address] [place] [address] PCP - General 11/11/24 documented as of this encounter
--- OUTSIDE RECORDS SUMMARY | 2025-02-23 11:42 | XMS_ITS | Encounter Summary ---
Author Organization [facility] Address [address] [place] [address] Care Team Providers Care Linen Sorter Name Role Phone JacekTavo Paige WING Primary Care Provider [phone] Encounter Details Date Type Department Care Team (Late st Contact Info) Description 01/28/2025 Telephone [facility] [place] [address] [place] [address] Jacquie Garcia Social History Tobacco [...] drink first t srinivasan in the morning (EYE-TEST DECK SUPERVISOR) to steady your nerves or to get [...] [facility] 800 [facility], 2nd [place] [address] Nate Mosqueda MD 800 [facility] [address]nd [place] [address] 05/20/2025 8:40 AM EDT Office Visit [facility] [place] [address] [place] [address] Hetal Robertson, COMPUTER NETWORKER [address] [address] documented as of this encounter [...] documented as of this encounter Care Teams Linen Sorter Relationship Specialty Start Date End Date Tavo Read DO [address] [place] [address] PCP - General 11/11/24 documented as of this encounter
--- OUTSIDE RECORDS SUMMARY | 2025-02-23 11:42 | XMS_ITS | Encounter Summary ---
Author Organization Healthcare Address [address] [place] [address] Care Team Providers Care Piano Builder Name Role Phone Lilliam Readew Paige WING Primary Care Provider [phone] Encounter Details Date Type Department Care Team ([facility] st Contact Info) Description 01/21/2025 Telephone [facility] Nephrology [address] [place] [address] Hetal Rboertson, SUPERVISOR PACKING [address] [address] Social History Tobacco Use Types [...] drink first t srinivasan in the morning (EYE-SOLAR PROJECT COORDINATION SPECIALIST) to steady your nerves or to [...] worsening renal function with labwork completed by Maintenance Assistant. Creatinine up to 3, egfr 14. Maintenance Assistant held bumex and metolazone. No improvement or [...] [facility] Respiratory 800 [facility], 2nd [place] [address] Nate Mosqueda MD [address] [facility] [address]nd [place] [address] 05/20/2025 8:40 AM EDT Office Visit [facility] [address] [place] [address] Hetal Robertson APRN [address] [address] documented as of this encounter [...] documented as of this encounter Care Teams Piano Builder Relationship Specialty Start Date End Date Tavo Read DO [address] [place] [address] PCP - General 11/11/24 documented as of this encounter
--- OUTSIDE RECORDS SUMMARY | 2025-02-23 11:42 | XMS_ITS | Encounter Summary ---
Author Organization Healthcare Address [address] [place] [address] Care Team Providers Care Slasher Runner Name Role Phone Perry Askew MD Primary Care Provider [phone] Ricardo Lemons MD Primary Care Provider [phone] Tavo Read DO Primary Care Provider [phone] Encounter Details Date Type Department Care Team (Late Contact Info) Description 06/14/2022 Orders Only External Location [address] [place] [address] Provider, External Social History Tobacco Use Types [...] [facility] Respiratory 800 [facility], 2nd [place] [address] Nate Mosqueda MD 800 [facility] 2nd [place] [address] 05/20/2025 8:40 AM EDT Office Visit [facility] [place] [address] [place] [address] Hetal Robertson, INTERPRETER DEAF [address] [address] documented as of this encounter Procedures Procedure [...] documented as of this encounter Care Teams Slasher Runner Relationship Specialty Start Date End Date Perry Askew MD PCP - General 02/11/22 07/02/23 Ricardo Lemons MD [address] [place] [address] [place] [address] PCP - General 07/03/23 11/10/24 Tavo Read DO [address] [place] [address] PCP - General 11/11/24 documented as of this encounter
--- OUTSIDE RECORDS SUMMARY | 2025-02-23 11:42 | XMS_ITS | Encounter Summary ---
Author Organization [facility] Address [address] [place] [address] Care Team Providers Care Electronics Teacher Name Role Phone Perry Askew MD Primary Care Provider [phone] Ricardo Lemons MD Primary Care Provider [phone] Tavo Read DO Primary Care Provider [phone] Encounter Details Date Type Department Care Team ([facility] Contact Info) Description 06/24/2022 Community [facility] Community Practice [address] [place] [address] Perry Askew MD [facility] [place] [address] Congenital anomalies of other endocrine glands (Primary [...] Upcoming Encounters Date Type Department Care Team ([facility] Contact Info) Description 03/22/2025 9:45 AM EDT Office Visit [facility] Respiratory 800 [facility], 2nd [place] [address] Nate Mosqueda MD 800 [facility] 2nd [place] [address] 05/20/2025 8:40 AM EDT Office Visit [facility] [address] [address] Hetal Robertson, DOCTOR CHIROPRACTIC [address] [address] documented as of this encounter Visit Diagnoses Diagnosis 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
--- OUTSIDE RECORDS SUMMARY | 2025-02-23 11:42 | XMS_ITS | Encounter Summary ---
Author Organization [facility] Address [address] [place] [address] Care Team Providers Care Associate Professor Of Library Media Name Role Phone Perry Askew MD Primary Care Provider [phone] Ricardo Lemons MD Primary Care Provider [phone] Tavo Read DO Primary Care Provider [phone] Encounter Details Date Type Department Care Team ([facility] Contact Info) Description 06/20/2022 Community [facility] Community Practice [address] [place] [address] Perry Askew MD [address] [place] [address] Congenital anomalies of other endocrine glands (Primary [...] Upcoming Encounters Date Type Department Care Team ([facility] Contact Info) Description 03/22/2025 9:45 AM EDT Office Visit [facility] 800 [facility], 2nd [place] [address] Nate Mosqueda MD 800 [facility] 2nd [place] [address] 05/20/2025 8:40 AM EDT Office Visit [facility] [address] [address] Hetal Robertson, MANAGER INPATIENT [address] [address] documented as of this encounter Visit Diagnoses Diagnosis 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
--- OUTSIDE RECORDS SUMMARY | 2025-02-23 11:42 | XMS_ITS | Clinical Summary ---
Author Organization [facility] Address [address] [place] [address] Phone Care Team Providers Care Practice Managers Name Role Phone Unavailable Primary Care Provider [...]
[2025-02-23 12:48] LABS: Albumin Level 4.4 g/dl (3.5-5.0); Anion Gap 10.6 mEq/L (5-15); Blood Urea Nitrogen 38 mg/dl (7-17); Calcium 9.6 mg/dl (8.4-10.2); Carbon Dioxide 32 mmol/L (22.0-30.0); Chloride 105 mmol/L (98-107); Chol/HDL Ratio 4.6 (1-3.5); Cholesterol 156 mg/dl (140-200); Estimated Glomerular Filt Rate 19 ml/min (>60); GFR (African American) 23 ML/MIN (>60); Glucose 55 mg/dl (74-100); HDL Cholesterol 34 mg/dl (40-60); Phosphorous 2.9 mg/dl (2.5-4.5); Potassium 4.6 mmoL/L (3.5-5.1); Sodium 143 mmol/L (136-145); Triglycerides 183 mg/dl (30-150); VLDL Cholesterol 37 mg/dL (0-40)
[2025-02-23 12:49] LABS: Microalbumin/Creatinine Ratio 105.7
[2025-02-23 12:51] LABS: Anion Gap 10.4 mEq/L (5-15); Blood Urea Nitrogen 37 mg/dl (7-17); Calcium 9.9 mg/dl (8.4-10.2); Carbon Dioxide 31 mmol/L (22.0-30.0); Chloride 106 mmol/L (98-107); Estimated Glomerular Filt Rate 19 ml/min (>60); GFR (African American) 23 ML/MIN (>60); Glucose 56 mg/dl (74-100); Potassium 4.4 mmoL/L (3.5-5.1); Sodium 143 mmol/L (136-145)
[2025-02-23 12:52] LABS: Creatinine,Urine Random 128 mg/dL (Not Estab.)
[2025-02-23 13:17] LABS: Direct LDL Cholesterol 72.19 mg/dL (100-129)
[2025-02-23 13:18] LABS: Thyroid Stimulating Hormone < 0.02 uIU/mL (0.465-4.68)
== END 2025-02-23 23:59 | disposition home or self-care (01) ==
LOC: LAB 11:40
PROVIDERS: Nurse Practitioner Family; PCP Internal Medicine; Visit Provider Internal Medicine Endocrinology, Diabetes & Metabolism
DX: E11.65 Type 2 diabetes mellitus with hyperglycemia (principal); E78.5 Hyperlipidemia, unspecified; I65.29 Occlusion and stenosis of unspecified carotid artery; N18.30 Chronic kidney disease, stage 3 unspecified
CPT/HCPCS: 36415; 80048; 80061; 80069; 82043; 82570; 84443

== ENCOUNTER 2025-04-22 08:21 | Outpatient (CLI) | payer MEDICARE, SELFPAY ==
--- OUTSIDE RECORDS SUMMARY | 2025-03-22 09:45 | XMS_ITS | Encounter Summary ---
Author Organization [facility] Address [address] [place] [address] Care Team Providers Care Circular Sawyer Stone Name Role Phone Tavo Read DO Primary Care Provider [phone] Reason for Visit * Reason Comments Follow-up Encounter Details Date Type Department Care Team ([facility] Contact Info) Description 03/22/2025 9:45 AM EDT Office Visit Pav CC Head, Neck & Respiratory [address] [facility], [address]nd [place] [address] Nate Mosqueda MD [address] [facility] [address] [place] [address] Left thyroid nodule; Hyperparathyroidism (CMS/HCC) Social History [...] first t srinivasan in the morning (EYE-COMPUTER SPECIALIST) to steady your nerves or to [...] currently managing her calcium levels with her interpreter and translator, Dr. Brower. She returns to clinic today stating that [...] left TV fold. 04/08/22 Ashlie refers to [facility] for hyperparathyroidism, CKD, Nephrolithiasis, chronic fatigue depression [...] Clinic Appointment Request NATE MOSQUEDA 2. Hyperparathyroidism ([facility]) Clinic Appointment Request NATE MOSQUEDA IMPRESSION/PLAN: Ms. Robert returns to our clinic today doing very well. The patient has had improvement in her overall function following her operation. The patient is closely followed by her interpreter and translator. She will follow in our clinic on [...] up during surgery CHF (congestive heart failure) ([facility]) Chronic renal failure, stage 3 (moderate) ([facility]) Conversions - Other Anxiety (Symptom) Conversions - Other Arthritis Conversions - Other Diabetes Mellitus Conversions - Other Esophageal Reflux Conversions - Other Gout Conversions - Other Hyperlipidemia Conversions - Other Hypertension Conversions - Other Psoriasis Conversions - Other Urinary Calculus Conversions - Other Urinary Tract Infection COPD (chronic obstructive pulmonary disease) ([facility]) 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 Coronary calcification by CT scan 03/2016 Last Assessment & Plan: Formatting of this note might be different from t Diabetes mellitus ([facility]) Essential hypertension 08/01/2014 Last Assessment & Plan: Hypertension is unchanged. Continue current treatment regimen. Blood pressure will be reassessed at the next regular appointment. Last Assessment & Plan: Formatting of this note might be different from theoriginal. Hypertension is unchanged. Continue current treatment regimen. 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; set at 72 Personal history of urinary calculi History of renal calculi Right bundle branch block 07/17/2021 Sleep apnea uses cpap Status post biopsy of thyroid gland 04/24/2023 Uncontrolled type 2 diabetes mellitus with hyperglycemia ([facility]) 09/05/2020 Last Assessment & Plan: Diabetes is [...] Description 05/20/2025 8:40 AM EDT Office Visit [facility] [address] [place] [address] Hetal Robertson, YORDY [address] [address] documented as of this encounter Visit Diagnoses Diagnosis Left thyroid nodule Hyperparathyroidism ([facility]) Hyperparathyroidism, unspecified documented in this encounter Additional Health Concerns Assessment Noted Time PHQ-9 Depression Total Score: 15 022 1:26 PM EST A fall risk assessment has been complete d for the patient 03/22/2025 9:47 AM EDT A Body Mass Index follow-up plan has been documented for the patient 12/31/2024 8:56 AM EDT documented as of this encounter Care Teams Circular Sawyer Stone Relationship Specialty Start Date End Date Tavo Read DO [address] [place] [address] PCP - General 11/11/24 documented as of this encounter
[2025-04-22 13:20] LABS: Microscopic, Urine URINE MICROSCOPIC (MICROSCOPIC)
[2025-04-22 14:07] LABS: Bilirubin,Urine Negative (Negative); Color,Urine YELLOW (Yellow); Glucose,Urine (UA) Negative (Negative); Ketones,Urine Negative (Negative); Leukocyte Esterase,Urine 3+ (Negative); PH,Urine 7.0 (5.0-8.5); Protein,Urine Negative (Negative); Specific Gravity, Urine 1.010 (1.005-1.030); Urobilinogen,Urine 0.2 EU/dl (0.2)
[2025-04-22 16:05] LABS: Bacteria,Urine 3+ /lpf
--- OUTSIDE RECORDS SUMMARY | 2025-04-26 08:38 | XMS_ITS | Clinical Summary ---
Author Organization [facility] Address [address] [place] [address] Care Team Providers Care Banquet Server Name Role Phone Tavo Read Paige WING Primary Care Provider [phone] Allergies Active Allergy Reactions Criticality Noted Date [...] before breakfast. 30 tablet 11 5 Active Additional Information Patient not taking.Reported on 03/22/2025 oxyCODONE (Roxicodone) 5 MG immediate release tablet Take 1 tablet (5 mg) by mouth every 4 (four) hours if needed for moderate pain. 40 tablet 5 Active Additional Information Patient not taking.Reported on 03/22/2025 Insulin Degludec (TRESIBA FLEXTOUCH SC) Inject 75 mg under the skin daily. Active bumetanide (Bumex) 1 MG tabletIndicatio ns:Hyperparathy roidism, secondary renal (CMS/HCC) Take 2 tablets by mouth 2 times a day. 180 tablet 11 Active metOLazone (Zaroxolyn) 5 MG tablet Take 1 tablet by mouth 3 times a week. 36 tablet 1 Active Additional Information Patient not taking.Reported on 03/22/2025 nystatin (Mycostatin) cream apply topically to the affected area(s) three times daily Active calcitriol (Rocaltrol) 0.25 MCG capsule Take 1 capsule by mouth daily. Active levothyroxine (Synthroid, Levoxyl) 100 MCG tablet Take 1 tablet by mouth daily. 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 Coronary artery disease invo [place] coronary artery with angina pectoris 05/20/2016 Overview [...] okay. PTH was elevated. She is seeing education reporter later this month. Last Assessment & Plan: Recent ionized calcium and phos were okay. PTH was elevated. She is seeing education reporter later this month. Nontoxic uninodular goiter 09/05/2020 [...] Encounters Date Type Department Care Team Description 03/22/2025 9:45 AM EDT Office Visit [facility] Neck [facility] Respiratory [address] [place] [address] Nate Mosqueda MD Left thyroid nodule; Hyperparathyroidism (CMS/HCC) 03/22/2025 Travel 01/28/2025 Telephone [facility] [address] [place] [address] Jacquie Garcia from Last 3 Months Immunizations Immunization Administration [...] drink first t srinivasan in the morning (EYE-CONSTRUCTION SUPERVISOR/CARPENTER) to steady your nerves or to get [...] Mass Index 42 03/22/2025 9:50 AM EDT Plan of Treatment Upcoming Encounters Date Type Department Care Team (Late st Contact Info) Description 05/20/2025 8:40 AM EDT Office Visit [facility] [address] [place] [address] Hetal Robertson, PHARMACEUTICAL WORKER [address] [address] Health Maintenance Due Date Last Done Comments [facility]-Bone Density Scan 1956 [facility]-Diabetes: Hemoglobin A1C 1956 [facility]-Hepatitis C Screening 1956 [facility]-Medicare Annual Wellness (AWV) 1955 [facility]-/Child/Adol SDOH Screenings 1956 Diabetes: Dental Exam 1966 [facility]- SDOH Screenings 1974 [facility]-Adult SDOH Screenings 1974 [facility]-Pneumococcal Vaccine: 50+ Years (1 of 2 - PCV) 1975 CT Colonography 2001 Colonoscopy 2001 FIT-DNA 2001 FIT 2001 FOBT 2001 Sigmoidoscopy 2001 [facility]-Colorectal Cancer Screening 2001 [facility]-Breast Cancer Screening 2006 [facility]-Depression Screening 08/05/2023 08/05/2022, 07/09 [id number] Vaccine ( season) 2024 07/16/2023, 06/14/2022, 06/30/2021, Additional history exists [facility]-Influenza Vaccine (#1) 05/09/202506/17, 05/27/2023, 08/23/2022, Additional history exists [facility]-DTaP,Tdap,and Td Vaccines (2 - Td or Tdap) 01/07/2027 01/07/2017 [facility]-RSV Vaccine: 60+ Years or Completed 05/27/2023 [facility]-Zoster Vaccines Completed 03/01/2024, [facility]-Obesity Intervention Completed 025, 10/08/2024, 07/02/2024, Additional [...] this topic Medical Devices Implanted Type Area Scrap Iron Loader Device Identifier Shelf Expiration Date Model / Serial / Lot Prolaryn Plus - [id number] - [id number] Implanted:Qty : 1 on 07/18/2021 by Claude Ruano MD at [facility] Implant N/A: Throat Bebeto [id number] [id number] 02/10/2023 [id number] / [id number] / Tendril Mri Ra Lead [facility] [employer]-07/08/20 17 Implanted: (Quantity not on file) Lead Chest [employer] [id number] / / Tendril Mri Rv Lead [employer]-07/08/20 17 Implanted: (Quantity not on file) Lead Chest [employer] [id number] / / Assurity Mri [employer] Pacemaker- Implanted: (Quantity not on file) Pacemaker Chest [employer] [id number] / / Description:RA LEAD MODEL: [id number] RV LEAD MODEL: [id number] Insurance MEDICARE [facility] Advance Directives * Full Code (Latest Code Status on File) Date Activated Date Inactivated Comments 10/04/2024 7:25 PM 10/07/2024 10:34 AM Question Answer Comments Patient has decision-making capacity? Yes * Full Code Date Activated Date Inactivated Comments 08/12/2022 1:46 PM 08/13/2022 12:30 PM Question Answer Comments Patient has decision-making capacity? Yes Care Teams Banquet Server Relationship Specialty Start Date End Date Tavo Read DO [address] [place] [id number] [facility] - General 11/11/24
--- OUTSIDE RECORDS SUMMARY | 2025-04-26 08:38 | XMS_ITS | Clinical Summary ---
Author Organization [facility] Address [address] [place] [address] Phone Care Team Providers Care Rail Doweling Machine Operator Name Role Phone Unavailable Primary Care Provider [...] 06/30/2021, 11/19/2020, Additional history exists Influenza Vaccine (#1) 2025 , 06/20/2022, 06/14/2016 DTaP/TDaP/Td (2 - Td or Tdap) 01/07/2027 01/07/2017 Hepatitis B Vaccine Aged Out No longe r eligible based on patient's age to complete this topic Meningococcal B Vaccine Aged Out No l onger eligible based on patient's age to complete this topic Insurance [employer] PPO MEDICARE PART A HB on file
--- OUTSIDE RECORDS SUMMARY | 2025-04-26 08:38 | XMS_ITS | Encounter Summary ---
Author Organization [facility] Address [address] [place] [address] Care Team Providers Care Radio Station Operator Name Role Phone Perry Askew MD Primary Care Provider [phone] Ricardo Lemons MD Primary Care Provider [phone] Tavo Read DO Primary Care Provider [phone] Encounter Details Date Type Department Care Team (Late Contact Info) Description 06/20/2022 [facility] [address] [place] [address] Perry Askew MD [address] [place] [address] Congenital anomalies of other endocrine glands (Primary [...] Department Care Team (Late Contact Info) Description 05/20/2025 8:40 AM EDT Office Visit [facility] [address] [place] [address] Hetal Robertson, CYTOPATHOLOGIST [address] [address] documented as of this encounter Visit Diagnoses Diagnosis 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
--- OUTSIDE RECORDS SUMMARY | 2025-04-26 08:38 | XMS_ITS | Encounter Summary ---
Author Organization [facility] Address [address] [place] [address] Care Team Providers Care Lan Manager Name Role Phone Perry Askew MD Primary Care Provider Ricardo Lemons MD Primary Care Provider [phone] Tavo Read DO Primary Care Provider [phone] Reason for Referral * Consultation (Routine) - Closed Specialty Diagnoses / Procedures Referred By Contirma t Referred To Contact Otolaryngology Diagnoses Congenital malformations of other endocrine glands Perry Askew MD Phone: tel: fax: Referral ID Status Reason Start Date Expiration Date V isits Requested Visits Authorized [id number] Closed Specialty Services Required 06/27/2022 12/27/2023 1 1 Encounter Details Date Type Department Care Team (Latest Contact Info) Description 06/27/2022 Community [facility] [address] [place] [address] Perry Askew MD [address] [place] [address] Congenital malformations of other endocrine glands (Primary [...] Description 05/20/2025 8:40 AM EDT Office Visit [facility] [address] [place] [address] Hetal Robertson, FISHER [address] [address] Scheduled Referrals Name Type Priority Associated [...] documented as of this encounter Care Teams Lan Manager Relationship Specialty Start Date End Date Perry Askew MD PCP - General 02/11/22 07/02/23 Ricardo Lemons MD [address] [facility] [place] [address] PCP - General 07/03/23 11/10/24 Tavo Read DO [address] [place] [address] PCP - General 11/11/24 documented as of this encounter
--- OUTSIDE RECORDS SUMMARY | 2025-04-26 08:38 | XMS_ITS | Encounter Summary ---
Author Organization [facility] yste Address [address] [place] [address] Care Team Providers Care Inside Barrel Polisher Name Role Phone Tavo Read DO Primary Care Provider + Reason for Visit * Reason Onset Date Comments PT NOTES TO BE FAXED 02/08/2025 Encounter Details Date Type Department Care Team (Late st Contact Info) Description 02/08/2025 Telephone [facility] ENDOCRINOLOGY [address] [address] Noam Brower MD [address] [address] PT NOTES TO BE FAXED Social History Tobacco Use Types Packs/Day Years Used Date Smoking Tobacco: Never Smokeless Tobacco: Never Alcohol Use Standard Drinks/Week Comments No 0 (1 standard drink = 0.6 oz pur e alcohol) Comments Unknown Sex and Gender Information Value Date Recorded Sex Assigned at Female 02/02/2025 10:23 AM EDT Legal Sex Female 9:01 AM EDT Gender Identity Not on file Sexual Orientation Not on file documented as of this encounter Miscellaneous Notes * Telephone Encounter - Simona Bautista MA - 02/08/2025 10:31 AM EDT Noted. Patient has appointment scheduled for 02/09/2025 * Telephone Encounter - Damien Hall - 02/08/2025 10:21 AM EDT Caller: ALIZA Relationship to patient: Patient is needing: PT IS NEEDING 6MONTHS CHART NOTES SENT TO [facility] IN ORDER TO RECEIVE SUPPLIES PLEASE ADVISE AND FAX TO [phone] documented in this encounter Plan of Treatment Upcoming Encounters Date Type Department Care Team (Late st Contact Info) Description 10/05/2025 2:45 PM EST Office Visit [facility] ENDOCRINOLOGY [address] [phone] Noam Brower MD [address] [address] documented as of this encounter Visit Diagnoses Not on filedocumented in this encounter Care Teams Inside Barrel Polisher Relationship Specialty Start Date End Date Tavo Read DO [address] [facility] [address] [place] [address] PCP - General Internal Medicine 07/21/24 documented as of this encounter
--- OUTSIDE RECORDS SUMMARY | 2025-04-26 08:38 | XMS_ITS | Encounter Summary ---
Author Organization [facility] Address [address] 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
--- OUTSIDE RECORDS SUMMARY | 2025-04-26 08:38 | XMS_ITS | Encounter Summary ---
[facility] Address [address] [place] [address] Care Team Providers Care Palm Gatherer Name Role Phone Tavo Read Primary Care Provider + Reason for Visit * Reason Comments Med Refill Encounter Details Date Type Department Care Team (Late st Contact Info) Description 03/28/2025 Refill [facility] END[facility]CR[facility] [address] [facility] [address] [place] [phone] Noam Brwoer MD [address] [place], [place] [address] [address] Social History Tobacco Use Types Packs/Day Years Used Date Smoking Tobacco: Never Passive Smoke Exposure: Never Smokeless Tobacco: Never Alcohol Use Standard [...] 2:45 PM EST Office Visit [facility] [address] [place] [phone] Noam Brower MD [facility] [address] documented as of this encounter Visit Diagnoses Not on filedocumented in this encounter Care Teams Palm Gatherer Relationship Specialty Start Date End Date Tavo Read DO [address] [place] [address] [place] [address] PCP - General Internal Medicine 07/21/24 documented as of this encounter
--- OUTSIDE RECORDS SUMMARY | 2025-04-26 08:38 | XMS_ITS | Clinical Summary ---
[facility] Address [address] [place] [address] Care Team Providers Care Trade Economist Name Role Phone JacekTavo moon Carmine Primary Care Provider + Allergies Active Allergy Reactions Criticality Noted Date Comments Ciprofloxacin Hcl Other (See Comments) 07/14/20 24 Couldn't move muscles, hurt. Morphine And Codeine Itching,Rash Low 05/20/2016 Other Anaphylaxis High 09/05/2020 Thalium for stress test Medications allopurinol (ZYLOPRIM) 100 MG tablet Take 1 tablet by mouth Daily. Active omeprazole (PriLOSEC) 40 MG capsule Take 1 capsule by mouth Daily. Active bisoprolol (ZEBeta) 10 MG tablet 1 tablet Daily. 08/29/20 20 Active atorvastatin (LIPITOR) 20 MG tablet 1 tablet Every Night. 09/03/20 20 Active ProAir RespiClick 108 (90 Base) MCG/ACT inhaler INL 2 PFS PO Q 6 H PRN 08/04/20 20 Active nitrofurantoi n (MACRODANTIN) 50 MG capsule Take 1 capsule by mouth Daily. 12/03/19 21 Active potassium citrate (UROCIT-K) 10 MEQ (1080 MG) CR tablet 05/26/20 21 Active nystatin-tria mcinolone (MYCOLOG II) 979255-7.1 UNIT/GM-% cream APPLY TOPICALLY TO THE AFFECTED AREA TWICE DAILY FOR 10 DAYS 06/11/20 21 Active Insulin Lispro 100 UNIT/ML solution cartridge Inject 38u at BF, 40u at lunch; and 70u at supper 140 mL 3 03/19/20 23 Active diphenhydrAMI NE-acetaminop hen (TYLENOL PM) 25-500 MG tablet per tablet Take 2 tablets by mouth At Night As Needed for Sleep. Active Lancets misc Use 1 each 4 (Four) Times a Day. 400 each 3 12/23/19 24 Active Blood Glucose Monitoring Suppl (ONE TOUCH ULTRA 2) w/Device kit Use 1 each See Admin Instructions. Use to check blood sugar 4 times daily. Dx E11.65 1 each 01/06/20 24 Active OneTouch Ultra test strip USE TO TEST three TIMES DAILY DX CODE E11.65 300 each 3 02/12/20 24 Active Blood Glucose Monitoring Suppl (Easy Touch Glucose System) w/Device kit Use to test blood sugar 4 times daily. Dx E11.65 1 kit 04/12/20 24 Active glucose blood (Easy Touch HealthPro Glucose) test strip Use to test blood sugar 4 times daily. Dx E11.65 400 each 04/14/20 24 Active Insulin Syringe-Needl e U-100 (BD Insulin Syringe U/F) 31G X 5/16 1 ML misc Use 1 each 5 (Five) Times a Day. 500 each 3 07/02/20 24 Active aspirin 81 MG EC tablet Take 1 tablet by mouth Daily. Active losartan (COZAAR) 100 MG tablet Take 1 tablet by mouth Daily. 07/14/20 24 Active Insulin Lispro (HumaLOG) 100 UNIT/ML injection Inject 38u at BF, 40u at lunch; and 70u at supper 150 mL 3 08/09/20 24 Active glucose blood test strip Use to test blood sugar four times daily Dx e11.65 Dispense easy touch test strips. 400 each 08/20/20 24 Active Insulin Degludec (Tresiba FlexTouch) 200 UNIT/ML solution pen-injector pen injection Inject 210 Units under the skin into the appropriate area as directed Every Night. 90 mL 11/04/19 25 Active Insulin Pen Needle (Pen Vardaman) 32G X 4 MM misc Use 1 each Daily. 100 each 3 11/16/19 25 Active Magnesium Oxide -Mg Supplement 400 (240 Mg) MG tablet Take 1 tablet by mouth Daily. Active calcitriol (ROCALTROL) 0.25 MCG capsule Take 1 capsule by mouth Daily. 90 capsule 3 02/11/20 25 Active levothyroxine (SYNTHROID, LEVOTHROID) 100 MCG tablet Take 1 tablet by mouth Daily. 90 tablet 3 02/11/20 25 Active Semaglutide, 1 MG/DOSE, (Ozempic, 1 MG/DOSE,) 4 MG/3ML solution pen-injector INJECT 1 MG SUBCUTANEOUSLY ONCE a WEEK DIRECTED 9 mL 3 03/28/20 25 Active Semaglutide, 1 MG/DOSE, (Ozempic, 1 MG/DOSE,) 4 MG/3ML solution pen-injector Inject 1 mg under the skin into the appropriate area as directed 1 (One) Time Per Week. 9 mL 3 05/19/20 24 2024 Discontinued Active Problems Problem Noted Date Diagnosed Date Hypoparathyroidism after procedure 02/09/2025 Assessment & Plan (02/09/2025 1:44 PM EDT): Continue calcitriol for now. Check calcium and PTH levels today. History of partial thyroidectomy 02/09/2025 Assessment & Plan (02/09/2025 1:44 PM EDT): She was started on levothyroxine after the surgery. TSH was low a few months ago. Check TFTs again today. Insulin long-term use 08/17/2021 Uncontrolled type 2 diabetes mellitus with hyper glycemia 09/05/2020 Assessment & Plan (02/09/2025 1:42 PM EDT): Diabetes is stable. Continue current treatment regimen. Diabetes will be reassessed in 6 months. TeleFlip G7 CGM was downloaded today. Data was reviewed from 01/27/25 to 02/09/25. This showed fairly good overnight glucose control. Having some lows after BF. Will decrease BF dose of lispro to address this. Time in range was 83%. Time low as 10%. Assessment & Plan (07/14/2024 10:22 AM EST): Diabetes is improving with treatment. Having some hypoglycemia midmorning. She has been taking dose of humalog in the AM for high glucose even though she isn't eating BF. She takes full dose. Decrease AM insulin. Diabetes will be reassessed in 6 months. FSBS was 44 upon arrival. She was fasting for labs. She wasn't particularly symptomatic. She was treated with apple juice. FSBS was 49 after treatment. She was treated with PB crackers after this. Assessment & Plan (12/23/2023 1:56 PM EDT): Diabetes is stable. Continue current treatment regimen. Diabetes will be reassessed in 6 months. Assessment & Plan (07/24/2023 2:29 PM EST): Diabetes is unchanged. Continue current treatment regimen. Diabetes will be reassessed in 3 months. Continue CGM. She didn't have the [facility] with her today so we couldn't download this. We discussed increase in ozempic but there is a shortage of the 2mg dose currently. Decrease mealtime insulin due to some lows during the day. She c/o left lower leg pain. She describes it as bone pain. She will discuss this with her PCP for further evaluation. Assessment & Plan (03/19/2023 8:42 AM EDT): Diabetes is unchanged. Continue current treatment regimen. Diabetes will be reassessed in 3 months. We discussed using CGM. Will send Rx to see if this is covered. Assessment & Plan (11/18/2022 2:42 PM EDT): Diabetes is unchanged. Continue current treatment regimen. We discussed treatment options today. We discussed adding GLP-1 RA. Potential s/e discussed. We discussed decreasing mealtime insulin. Diabetes will be reassessed in 3 months. Assessment & Plan (06/25/2022 4:40 PM EDT): Diabetes is unchanged. A1c okay at 5.6% but having more hypos now. Continue current treatment regimen. But decrease basal insulin by 10u. Diabetes will be reassessed in 3 months. Assessment & Plan (02/07/2022 10:05 AM EDT): Diabetes is unchanged. Continue current treatment regimen. Diabetes will be reassessed in 3 months. Assessment & Plan (08/17/2021 3:31 PM EST): Diabetes is unchanged. Continue current treatment regimen. Diabetes will be reassessed in 3 months. Assessment & Plan (04/10/2021 4:05 PM EDT): Diabetes is unchanged. Continue current treatment regimen. Diabetes will be reassessed in 3 months. Assessment & Plan (12/12/2020 4:28 PM EDT): Diabetes is unchanged. Continue current treatment regimen. Diabetes will be reassessed in 3 months. A1c okay. We discussed CGM. She wants to wait until later this year when she has Medicare. Assessment & Plan (09/05/2020 4:19 PM EST): Diabetes is unchanged. Continue current treatment regimen. Diabetes will be reassessed in 3 months. Hypercalcemia 09/05/2020 Assessment & Plan (07/14/2024 10:14 AM EST): H/o elevated PTH. Following with nephrology. Check calcium today. Assessment & Plan (12/23/2023 2:00 PM EDT): H/o elevated PTH. Following with nephrology. Recent calcium was 10.6. The PTH was 167. The cr was 1.5. Assessment & Plan (07/24/2023 2:07 PM EST): Has elevated PTH. Seeing nephrology. Assessment & Plan (03/19/2023 8:36 AM EDT): Check calcium level today. Assessment & Plan (12/12/2020 4:23 PM EDT): Recent ionized calcium and phos were okay. PTH was elevated. She is seeing it security specialist later this month. Assessment & Plan (09/05/2020 4:16 PM EST): She has been started on fosamax. She had labs done recently. She will have results sent to us. Nontoxic uninodular goiter 09/05/2020 Assessment & Plan (07/14/2024 10:14 AM EST): Being monitored by ENT. Assessment & Plan (12/23/2023 1:46 PM EDT): Being monitored by ENT. Assessment & Plan (07/24/2023 2:08 PM EST): Seeing ENT. Recent TFTs were normal. Assessment & Plan (03/19/2023 8:36 AM EDT): S/p hemithyroidectomy. Check TSH today. Assessment & Plan (11/18/2022 2:26 PM EDT): S/p hemithyroidectomy. Postop TSH was normal at 1.8. Assessment & Plan (06/25/2022 4:41 PM EDT): She has been euthyroid. Having some compressive sxs. Scheduled to see ENT at in about 2 weeks. Assessment & Plan (02/07/2022 9:53 AM EDT): Check TSH today. Assessment & Plan (12/12/2020 4:25 PM EDT): Check TSH next visit. Chest pain 05/20/2016 Essential hypertension 05/20/2016 Assessment & Plan (02/09/2025 1:30 PM EDT): Hypertension is stable and controlled. Continue current treatment regimen. Blood pressure will be reassessed in 6 months. Assessment & Plan (07/14/2024 10:12 AM EST): Hypertension is stable and controlled Continue current treatment regimen. Blood pressure will be reassessed in 6 months. Assessment & Plan (12/23/2023 1:56 PM EDT): Hypertension is stable and controlled Continue current treatment regimen. Blood pressure will be reassessed in 3 months. Assessment & Plan (07/24/2023 2:05 PM EST): Hypertension is unchanged. Continue current treatment regimen. Blood pressure will be reassessed at the next regular appointment. Assessment & Plan (03/19/2023 8:33 AM EDT): Hypertension is unchanged. Continue current treatment regimen. Blood pressure will be reassessed at the next regular appointment. Assessment & Plan (11/18/2022 2:27 PM EDT): Hypertension is unchanged. Continue current treatment regimen. Blood pressure will be reassessed at the next regular appointment. Assessment & Plan (06/25/2022 4:31 PM EDT): Hypertension is unchanged. Continue current treatment regimen. Blood pressure will be reassessed at the next regular appointment. Assessment & Plan (02/07/2022 9:52 AM EDT): Hypertension is unchanged. Continue current treatment regimen. Blood pressure will be reassessed at the next regular appointment. Assessment & Plan (08/17/2021 3:31 PM EST): Hypertension is unchanged. Continue current treatment regimen. Blood pressure will be reassessed at the next regular appointment. Assessment & Plan (04/10/2021 4:05 PM EDT): Hypertension is unchanged. Continue current treatment regimen. Blood pressure will be reassessed at the next regular appointment. Assessment & Plan (12/12/2020 4:14 PM EDT): Hypertension is unchanged. Continue current treatment regimen. Blood pressure will be reassessed at the next regular appointment. Assessment & Plan (09/05/2020 4:20 PM EST): Hypertension is unchanged. Continue current treatment regimen. Blood pressure will be reassessed in 3 months. Hyperlipemia 05/20/2016 Assessment & Plan (02/09/2025 1:31 PM EDT): Continue statin. Plan to check lipids next visit. Assessment & Plan (07/14/2024 10:18 AM EST): Continue statin. Check lipids. Assessment & Plan (12/23/2023 1:47 PM EDT): Continue statin. Assessment & Plan (07/24/2023 2:11 PM EST): Continue statin. Lipids were okay last visit. Assessment & Plan (03/19/2023 8:37 AM EDT): Continue statin. Check lipids today. Assessment & Plan (11/18/2022 2:27 PM EDT): Continue statin. Assessment & Plan (06/25/2022 4:31 PM EDT): Continue statin. Assessment & Plan (02/07/2022 10:00 AM EDT): Continue statin. Check lipids today. Trigs were high earlier this spring. Check lipids again today. If still high, consider vascepa. Assessment & Plan (08/17/2021 3:31 PM EST): Continue statin. Plan to check lipids next visit. Assessment & Plan (04/10/2021 4:05 PM EDT): Continue statin. 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 Assessment & Plan (07/14/2024 10:15 AM EST): Continue GLP-1 RA, ASA and statin. Assessment & Plan (12/23/2023 1:52 PM EDT): Continue ASA, statin. Didn't tolerate GLP-1 RA. Assessment & Plan (07/24/2023 2:05 PM EST): Continue ASA, statin and GLP-1 RA. Assessment & Plan (03/19/2023 8:33 AM EDT): Continue ASA, statin and GLP-1 RA. Assessment & Plan (11/18/2022 2:26 PM EDT): Continue ASA and statin. Assessment & Plan (02/07/2022 9:53 AM EDT): Continue ASA and statin. Assessment & Plan (09/05/2020 4:20 PM EST): Continue cardiology follow up. Encounters Date Type Department Care Team Description 03/28/[address] [facility] [address] [place] [address] Noam Brower MD 02/10/2025 Results Follow-Up [facility] [address] [place] [address] Noam Brower MD 02/09/2025 1:15 PM EDT Office Visit [facility] [address] [place] [address] Noam Brower MD Uncontrolled type 2 diabetes mellitus with hyperglycemia (Primary Dx); Essential hypertension; Mixed hyperlipidemia; Coronary artery disease involving [place] coronary artery of [place] heart with angina pectoris; Hypoparathyroidism after procedure; History of partial thyroidectomy 02/09/[address] [facility] [address] [place] [address] Noam Brower MD Labs Only 02/09/2025 Travel 02/08/[address] [facility] [address] [place] [address] Noam Brower MD PT NOTES TO BE FAXED 01/27/[address] [facility] [address] [place] [address] Noam Brower MD PAPERWORK from Last 3 Months Family History Medical History Relation Name Comments No Known Problems Brother 2 Heart attack Father Hypertension Father Stroke Father Diabetes Mother Heart disease Mother Hypertension Mother Kidney failure Mother Stroke Mother Lupus Sister Relation Name Status Comments Brother 1 Alive mental problems Brother 2 Alive Father Mother open heart surg love, she had 5 bypasses. She also had a brain tumor Sister Alive Social History Tobacco Use Types Packs/Day Years [...] Sign Reading Time Taken Comments Blood Pressure 136/66 02/09/2025 1:18 PM EDT Pulse 74 02/09/2025 1:18 PM EDT Temperature 36.2 C (97.2 F) 12/12/2020 3:54 PM EDT Respiratory Rate - - Oxygen Saturation 96% 02/09/2025 1:18 PM EDT Inhaled Oxygen Concentration - - Weight 104 kg (230 lb) 02/09/2025 1:18 PM EDT Height 162.6 cm (5' 4 ) 02/09/2025 1:18 PM EDT Body Mass Index 39.48 02/09/2025 1:18 PM EDT Plan of Treatment Upcoming Encounters Date Type Department Care Team (Late st Contact Info) Description 10/05/2025 2:45 PM EST Office Visit [facility] [address] [facility] [address] [place] [address] Noam Brower MD [address] [facility] [address] [place] [address] Health Maintenance Due Date Last Done Comments DXA SCAN 1956 DIABETIC FOOT EXAM 1966 Pneumococcal Vaccine 50+ (1 of 2 - PCV) 1975 MAMMOGRAM 1996 COLOGUARD 2001 COLON CANCER SCREENING 5 YEA R SIGMOIDOSCOPY 2001 COLONOSCOPY [address] CANCER SCREENING 2001 CT COLONOGRAPHY 2001 FECAL OCCULT BLOOD TEST 2001 FIT Testing (1 year) 2001 ANNUAL WELLNESS VISIT 08/28/2020 HEPATITIS C SCREENING 08/28/2020 COVID-19 Vaccine ( - 2023-2 5 season) 2024 07/16/2023, 06/14/2022, 06/30/2021, Additional history exists DIABETIC EYE EXAM 03/01/2025 03/01/2024, , 11/25/2020 INFLUENZA VACCINE 06/08/2025 06/17/2024, , 08/23/2022, Additional history exists LIPID PANEL 07/14/2025 07/14/2024, 03/08, 02/07/2022 URINE MICROALBUMIN-CREATININ E RATIO (uACR) 07/14/2025 07/14/2024 HEMOGLOBIN A1C 08/11/2025 02/09/2025, 11/0 02/2024, 12/23/2023, Additional history exists TDAP/TD VACCINES (2 - Td or Tdap) 01/07/2027 017 ZOSTER VACCINE Completed 03/01/2024, 12/04/2023 Procedures Procedure Name Priority Date/Time Associated Diagnosis Comments PTH, INTACT Routine 02/09/2025 1:52 PM EDT Hypoparathyroidism after procedure T4, FREE Routine 02/09/2025 1:52 PM EDT History of partial thyroidectomy TSH Routine 02/09/2025 1:52 PM EDT History of partial thyroidectomy COMPREHENSIVE METABOLIC PANEL Routine 02/09/2025 1:52 PM EDT Hypoparathyroidism after procedure POCT GLYCOSYLATED HEMOGLOBIN (HGB A1C) Routine 02/09/2025 1:30 PM EDT Uncontrolled type 2 diabetes mellitus with hyperglycemia POCT GLUCOSE, BLD (NON STRIP) Routine 02/09/2025 1:30 PM EDT Uncontrolled type 2 diabetes mellitus with hyperglycemia LIPID PANEL Routine 07/14/2024 10:27 AM EST Uncontrolled type 2 diabetes mellitus with hyperglycemia SCANNED - EYE EXAM 03/01/2024 from Last 3 Months or Most Recently Relevant to Health Maintenance Results * (ABNORMAL) TSH (02/09/2025 1:52 PM EDT) [facility] TSH 0.007(L) 0.270 - 4.200 uIU/mL 02/09/2025 11:12 PM EDT [facility] Blood Venipuncture / Unknown 02/09/2025 1:52 PM EDT 02/09/2025 1:52 PM EDT Noam Brower MD LAB BLOOD ORDERABLES Jeanne l Result Performing Organization Address City/[facility] [address]/ZIP Co de Phone Number PSYCHIATRIC LABORATORY
[address] [place] [address], * (ABNORMAL) T4, Free (02/09/2025 1:52 PM EDT) [facility] Free T4 2.27(H) 0.92 - 1.68 ng/dL 02/09/2025 11:12 PM EDT [facility] Blood Venipuncture / Unknown 02/09/2025 1:52 PM EDT 02/09/2025 1:52 PM EDT Noam Brower MD LAB BLOOD ORDERABLES Jeanne l Result [facility]IATRIC LABORATORY
[address] [place] [address], * (ABNORMAL) PTH, Intact (02/09/2025 1:52 PM EDT) [facility] PTH, Intact 5.4(L) 15.0 - 65.0 pg/mL 02/09/2025 11:45 PM EDT [facility] Blood Structure of left upper limb / Unknown Venipuncture / Unknown 02/09/2025 1:52 PM EDT 02/09/2025 1:52 PM EDT Narrative [facility]ATRIC LAB[facility]ORY - 02/09/2025 11:45 PM EDT Results may be falsely decreased if patient taking Biotin. Noam Brower MD LAB BLOOD ORDERABLES Jeanne l Result PS[facility]CHIATRIC LABORATORY
[address] [place] [address], * (ABNORMAL) Comprehensive Metabolic Panel (02/09/2025 1:52 PM EDT) [facility] Glucose 65 65 - 99 mg/dL 02/09/2025 11:06 PM EDT [facility] BUN 37.0(H) 8.0 - 23.0 mg/dL 02/09/2025 11:06 PM EDT [facility] Creatinine 2.70(H) 0.57 - 1.00 mg/dL 02/09/2025 11:06 PM EDT [facility] Sodium 145 136 - 145 mmol/L 02/09/2025 11:06 PM EDT [facility] Potassium 4.7 3.5 - 5.2 mmol/L 02/09/2025 11:06 PM EDT [facility] Chloride 102 98 - 107 mmol/L 02/09/2025 11:06 PM EDT [facility] CO2 30.1(H) 22.0 - 29.0 mmol/L 02/09/2025 11:06 PM EDT [facility] Calcium 11.2(H) 8.6 - 10.5 mg/dL 02/09/2025 11:06 PM EDT [facility] Total Protein 7.1 6.0 - 8.5 g/dL 02/09/2025 11:06 PM [facility] Albumin 4.2 3.5 - 5.2 g/dL 02/09/2025 11:06 PM [facility] ALT (SGPT) 11 1 - 33 U/L 02/09/2025 11:06 PM [facility] AST (SGOT) 13 1 - 32 U/L 02/09/2025 11:06 PM [facility] Alkaline Phosphatase 60 39 - 117 U/L 02/09/2025 11:06 PM [facility] Total Bilirubin 0.4 0.0 - 1.2 mg/dL 02/09/2025 11:06 PM [facility] Globulin 2.9 gm/dL 02/09/2025 11:06 PM [facility] A/G Ratio 1.4 g/dL 02/09/2025 11:06 PM [facility] BUN/Creatinine Ratio 13.7 7.0 - 25.0 02/09/2025 11:06 PM [facility] Anion Gap 12.9 5.0 - 15.0 mmol/L 02/09/2025 11:06 PM [facility] eGFR 18.7(L) >60.0 mL/min/1.7 3 02/09/2025 11:06 PM [facility] Blood Venipuncture / Unknown 02/09/2025 1:52 PM EDT 02/09/2025 1:52 PM [facility] - 02/09/2025 11:06 PM EDT GFR Categories in Chronic Kidney Disease (CKD) GFR Category GFR (mL/min/1.73) Interpretation G1 90 or greater Normal or high (1) G2 60-89 Mild decrease (1) G3a 45-59 Mild to moderate decrease G3b 30-44 Moderate to severe decrease G4 15-29 Severe decrease G5 14 or less Kidney failure (1)In the absence of evidence of kidney disease, neither GFR category G1 or G2 fulfill the criteria for CKD. eGFR calculation 2020 CKD-EPI creatinine equation, which does not include race as a factor us Noam Brower MD LAB BLOOD ORDERABLES Jeanne l Result [facility]IATRIC LABORATORY
[address] [place] [address], * POC Glucose, Blood (02/09/2025 1:30 PM EDT) Glucose 81 70 - 130 mg/dL Lot Number [id number] Expiration Date 09/03/2025 Blood 02/09/2025 1:30 PM EDT Noam Brower MD POINT OF CARE TEST ORDERA BLES Final Result * POC Glycosylated Hemoglobin (Hb A1C) (02/09/2025 1:30 PM EDT) Hemoglobin A1C 5.1 4.5 - 5.7 % [facility] Lot Number [id number] [facility] Expiration Date 11/03/2026 [facility] Blood 02/09/2025 1:30 PM EDT Noam Brower MD POINT OF CARE TEST ORDERA BLES Final Result [facility]
[address] [place] [address], * (ABNORMAL) Lipid Panel (07/14/2024 10:27 AM EST) Total Cholesterol 154 0 - 200 mg/dL 07/14/2024 2:42 PM EST [facility] LAB[facility] Triglycerides 154(H) 0 - 150 mg/dL 07/14/2024 2:42 PM EST [facility] HDL Cholesterol 36(L) 40 - 60 mg/dL 07/14/2024 2:42 PM EST [facility] LDL Cholesterol 91 0 - 100 mg/dL 07/14/2024 2:42 PM EST [facility] VLDL Cholesterol 27 5 - 40 mg/dL 07/14/2024 2:42 PM EST [facility] LDL/HDL Ratio 2.42 07/14/2024 2:42 PM EST [facility] Blood Structure of left upper limb / Unknown Venipuncture / Unknown 07/14/2024 10:27 AM EST 07/14/2024 10:28 AM EST Narrative PS[facility]IATRIC LABORATORY - 07/14/2024 2:42 PM EST Cholesterol Reference Ranges (U.S. Department of Health and Human Services ATP III Classifications) Desirable <200 mg/dL Borderline High 200-239 mg/dL High Risk >240 mg/dL Triglyceride Reference Ranges (U.S. Department of Health and Human Services ATP III Classifications) Normal <150 mg/dL Borderline High 150-199 mg/dL High 200-499 mg/dL Very High >500 mg/dL HDL Reference Ranges (U.S. Department of Health and Human Services ATP III Classifications) Low <40 mg/dl (major risk factor for CHD) High >60 mg/dl ('negative' risk factor for CHD) LDL Reference Ranges (U.S. Department of Health and Human Services ATP III Classifications) Optimal <100 mg/dL Near Optimal 100-129 mg/dL Borderline High 130-159 mg/dL High 160-189 mg/dL Very High >189 mg/dL Noam Brower MD LAB BLOOD ORDERABLES Jeanne vick Result PS[facility]CHIATRIC LABORATORY
[address] [place] [address], * EYE EXAM SCANNED (03/01/2024) Anatomical Region Laterality Modality Other Darryl Francois OD CHART REVIEW TABS Final Resu lt from Last 3 Months or Most Recently Relevant to Health Maintenance Insurance [facility]IC[facility] A & B Member Subscriber Plan / Payer (Ef fective 2021-Present) Name:Bobbi Robert Member ID:[id number] Relation to Subscriber:Self Name:Bobbi Robert Subscriber ID:[id number] Payer ID:[id number] Group ID:Not on file Type:Not on file Address: [address] [employer] Care Teams Trade Economist Relationship Specialty Start Date End Date Tavo Read DO [address] [place] [id number] PCP - General Internal Medicine 07/21/24
--- OUTSIDE RECORDS SUMMARY | 2025-04-26 08:38 | XMS_ITS | Encounter Summary ---
Author Organization [facility] Address [address] [place] [address] Care Team Providers Care Copyright Clerk Name Role Phone Perry Askew MD Primary Care Provider [phone] Ricardo Lemons MD Primary Care Provider [phone] Tavo Read DO Primary Care Provider [phone] Encounter Details Date Type Department Care Team (Late Contact Info) Description 06/24/2022 Community [facility] [address] [place] [address] Perry Askew MD [address] [place] [address] Congenital anomalies of other endocrine glands (Primary [...] Description 05/20/2025 8:40 AM EDT Office Visit [facility] [address] [place] [address] Hetal Robertson, NURSE TRANSPLANT [address] [address] documented as of this encounter Visit Diagnoses Diagnosis 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
--- OUTSIDE RECORDS SUMMARY | 2025-04-26 08:38 | XMS_ITS | Encounter Summary ---
Author Organization Healthcare Address [address] [place] [address] Care Team Providers Care Compliance Associate Name Role Phone Perry Askew MD Primary Care Provider [phone] Ricardo Lemons MD Primary Care Provider [phone] Tavo Read DO Primary Care Provider [phone] Encounter Details Date Type Department Care Team (Late Contact Info) Description 06/14/2022 Orders Only External Location [address] [place] [address] Provider, External Social History Tobacco Use Types [...] Description 05/20/2025 8:40 AM EDT Office Visit [facility] [address] [place] [address] Hetal Robertson, SENIOR MARKETING DATA ANALYST [address] [address] documented as of this encounter Procedures [...] documented as of this encounter Care Teams Compliance Associate Relationship Specialty Start Date End Date Perry Askew MD PCP - General 02/11/22 07/02/23 Ricardo Lemons MD [address] [place] [address] [place] [address] PCP - General 07/03/23 11/10/24 Tavo Read DO 1210 [facility] [address] [place] [address] PCP - General 11/11/24 documented as of this encounter
--- OUTSIDE RECORDS SUMMARY | 2025-04-26 08:38 | XMS_ITS | Encounter Summary ---
Author Organization [facility] Address [address] [place] [address] Care Team Providers Care Senior Drafter Name Role Phone JacekTavo moon Carmine Primary Care Provider + Reason for Visit * Reason Onset Date Comments PAPERWORK 01/27/2025 Encounter Details Date Type Department Care Team (Late st Contact Info) Description 01/27/2025 Telephone [facility] END[facility] [address] [address] Noam Brower MD [address] [address] PAPERWORK Social History Tobacco Use Types Packs/Day Years [...] Telephone Encounter - Simona Bautista MA - 01/27/2025 12:17 PM EDT Spoke with [employer] [facility]. They are going to fax over request for medical records. * Telephone Encounter - Coretta House RegSched Rep - 01/27/2025 12:05 PM EDT Caller: SHEYLAFatmata BRAXTON Relationship: Other Best call back number:[phone] What form or medical record are you requesting: OFFICE NOTES Who is requesting this form or medical record from you: IRAIS How would you like to receive the form or medical records (pick-up, mail, fax): FAX If fax, what is the fax number: [phone] If mail, what is the address: If pick-up, provide patient with address and location details Timeframe paperwork needed: TODAY Additional notes: 2 ND REQUEST TO GET OFFICE NOTES THAT MUST INCLUDE MEDICAL CONDITION documented in this encounter Plan of Treatment Upcoming Encounters Date Type Department Care Team (Late st Contact Info) Description 10/05/2025 2:45 PM EST Office Visit [facility] ENDOCRINOLOGY [address] [facility] [address] [place] [address] Noam Brower MD 30[address] [facility] [address] [place] [address] documented as of this encounter Visit Diagnoses Not on filedocumented in this encounter Care Teams Senior Drafter Relationship Specialty Start Date End Date Tavo Read DO [address] [place] [address] PCP - General Internal Medicine 07/21/24 documented as of this encounter
--- OUTSIDE RECORDS SUMMARY | 2025-04-26 08:38 | XMS_ITS | Encounter Summary ---
Author Organization [facility] Address [address] [place] [address] Care Team Providers Care Broker In Charge Name Role Phone Tavo Read Paige WING Primary Care Provider [phone] Encounter Details Date Type Department Care Team (Latest Contact Info) Description 03/22/2025 Travel Social History Tobacco Use Types Packs/Day [...] drink first t srinivasan in the morning (EYE-GANG RIDER) to steady your nerves or to get [...] on file documented as of this encounter Functional Status * Calculated C-SSRS Risk Score (Lifetime/Recent) Answer Date of Assessment Author No Risk Indicated 03/22/2025 9:47 AM EDT Renae Ghotra * Question Answer Date of Assessment Author 1. Wish to be (Past 1 Month) No 025 9:47 AM EDT Renae Ghotra 2. Non-Specific Active Suici rosita Thoughts (Past 1 Month) No 03/22/2025 9:47 AM EDT Mannie Ghotra M 6. Suicidal Behavior (Lifetime) No 9:47 AM EDT Renae Ghotra documented as of this encounter Plan of Treatment Upcoming Encounters Date Type Department Care Team (Late st Contact Info) Description 05/20/2025 8:40 AM EDT Office Visit [facility] [address] [place] [phone] Hetal Robertson, CHARTER AND TOUR BUS DRIVER [address] [place] [address] [address] documented as of this encounter [...] documented as of this encounter Care Teams Broker In Charge Relationship Specialty Start Date End Date Tavo Read DO [address] [place] [address] [place] [address] PCP - General 11/11/24 documented as of this encounter
== END 2025-04-22 23:59 | disposition home or self-care (01) ==
LOC: LAB.DROPOF 04-26 08:22
PROVIDERS: PCP Internal Medicine; Visit Provider Internal Medicine
DX: N89.8 Other specified noninflammatory disorders of vagina (principal); R30.0 Dysuria; R39.15 Urgency of urination
CPT/HCPCS: 81001; 87086

== ENCOUNTER 2025-05-11 11:16 | Outpatient (CLI) | payer MEDICARE, SELFPAY ==
--- OUTSIDE RECORDS SUMMARY | 2025-03-22 09:45 | XMS_ITS | Encounter Summary ---
Author Organization [facility] Address [address] [place] [address] Care Team Providers Care Solid Waste Truck Driver Name Role Phone Tavo Read DO Primary Care Provider [phone] Reason for Visit * Reason Comments Follow-up Encounter Details Date Type Department Care Team ([facility] Contact Info) Description 03/22/2025 9:45 AM EDT Office Visit [facility] Neck [facility] Respiratory [address] [facility], 2nd [place] [address] Nate Mosqueda MD [address] [facility] [address] [place] [address] Left thyroid nodule; Hyperparathyroidism (CMS/HCC) Social History [...] drink first t srinivasan in the morning (EYE-TOWER SUPERVISOR) to steady your nerves or to [...] Sign Reading Time Taken Comments Blood Pressure 115/71 03/22/2025 9:50 AM EDT Pulse 71 03/22/2025 9:50 AM EDT Temperature 36.6 C (97.8 F) 03/22/2025 9:50 AM EDT Respiratory Rate 16 03/22/2025 9:50 AM EDT Oxygen Saturation 98% 03/22/2025 9:50 AM EDT Inhaled Oxygen Concentration - - Weight 111 kg (244 lb 11.4 oz) 03/22/2025 9:50 A M EDT Height 162.6 cm (5' 4 ) 03/22/2025 9:50 AM EDT Body Mass Index 42 03/22/2025 9:50 AM EDT documented in this encounter Functional Status * Calculated C-SSRS Risk Score (Lifetime/Recent) Answer Date of Assessment Author No Risk Indicated 03/22/2025 9:47 AM EDT Renae Ghotra * Question Answer Date of Assessment Author 1. Wish to be (Past 1 Month) No 025 9:47 AM EDT Renae Ghotra 2. Non-Specific Active Suici rosita Thoughts (Past 1 Month) No 03/22/2025 9:47 AM EDT Mannie Ghotra 6. Suicidal Behavior (Lifetime) No 9:47 AM EDT Renae Ghotra documented as of this encounter Miscellaneous Notes * Progress Notes - Milton Iraheta PA - 03/22/2025 9:45 AM EDT Chief Complaint Patient presents with Follow-up Bobbi Robert is a 69 y.o. female who presents to our clinic today for follow up evaluation. She returns for clinic today for continued follow-up evaluation of her hyperparathyroidism. The patient was treated with completion thyroidectomy and parathyroidectomy on October 04, 2024. The patient did experience a drop in her calcium levels postoperatively. She is currently managing her calcium levels with her refrigeration mechanic, Dr. Browre. She returns to clinic today stating that she is doing well. The patient states she feels much better in the postoperative course. The patient states that some of her back pain and generalized discomfort has resolved following her operation. She also notes that she has had an improvement in her insulin requirements following her operation. Her height is 1.626 m (5' 4 ) and weight is 111 kg (244 lb 11.4 oz). Her oral temperature is 36.6 ??C (97.8 ??F). Her blood pressure is 115/71 and her pulse is 71. Her respiration is 16 and oxygen saturation is 98%. Past Medical History[1] Oncology History Overview Note Thyroid goiter with primary hyperparathyroidism (Multiglandular) 2014 Right thyroid mass Goiter, dx with left vocal cord paralysis (Idiopathic) 2015 bx left thyroid nodule: benign. She was followed with repeat ultrasounds, 2019. U/S left-sided 4.6 x 3.2 cm lower pole nodule right-sided 1.6 x 1.3 mid pole nodule. Both of these were unchanged from [address] Dailey referred to [facility] for parathyroid management. mikala Mosqueda 07/18/24 [place] Left TVC paralysis, microDL augmentation with Prolaryn WAY. Excision of supraglotticmass. 11/07/21 [facility] MICRO DL: Excision of redundant supraglottic tissue, Excision of prolaryn mass of left TV fold. 04/08/22 Ashlie refers to [facility] for hyperparathyroidism, CKD, Nephrolithiasis, chronic fatigue depression joint pain, no stone issues since 2016. High normal calcium, He felt this was due to CKD elected to see back if calcium elevated. 07/19/[address] Mosqueda with compressive symptoms and substernal goiter. 08/05/22 Parathyroid scan: No abnormal parathyroid seen. Left thyroid mass. 08/12/23 Left thyroidectomy for substernal goiter. Nl superior parathryoid seen, nerve did not stimulate. Path: benign Thyroid neoplasm 07/12/2023 Initial Diagnosis Thyroid neoplasm She has a past surgical history that includes Tonsillectomy (N/A); Cholecystectomy (N/A); Tubal ligation (N/A); Cardiac pacemaker placement (N/A); Back surgery (N/A); Hysterectomy (N/A); Vocal cord lateralization, endoscopic approach w/ MLB; Thyroidectomy, partial; and Cardiac catheterization. Her family history includes Colon cancer in her mother; Diabetes in her mother and paternal grandmother; Heart disease in an other family member; Hyperlipidemia in an other family member; Hypertension in an other family member; Obesity in an other family member; Post operative fever in her mother; S troke in an other family member; Thyroid disease in her daughter and mother. She reports that she has never smoked. She has never used smokeless tobacco. She reports that she does not currently use alcohol. Nutrition Assessment Anthropometrics: Wt Readings from Last 3 Encounters: 03/22/25 111 kg (244 lb 11.4 oz) 12/31/24 112 kg (246 lb) 11/11/24 112 kg (246 lb 11.1 oz) Ht Readings from Last 1 Encounters: 03/22/25 1.626 m (5' 4 ) BMI Readings from Last 1 Encounters: 03/22/25 42.00 kg/m?? Biochemical: Lab Results Component Value Date GLUCOSE 65 02/09/2025 CALCIUM 11.2 (H) 02/09/2025 NA 145 02/09/2025 K 4.7 02/09/2025 CO2 29 11/11/2024 CL 102 02/09/2025 BUN 37 (H) 02/09/2025 CREATININE 2.7 (H) 02/09/2025 PHYSICAL EXAMINATION: General: Healthy-appearing 69 y.o. patient, alert and oriented x3, in no acute distress, well nourished, well developed. Psychiatric evaluation: Normal mood and affect, very pleasant and cooperative. Nasal cavity examination: Septum is midline. Oral cavity examination: The oral cavity is evaluated without concerning ulceration or lesion. The tongue demonstrates full range of motion. Neck: soft and supple. I did not feel any enlarged lymphadenopathy. Well-healed incision of the anterior neck. Eyes: Extraocular movements are intact bilaterally. PERRLA. Neurological examination: Cranial nerves II-XII are grossly intact. Skin of the scalp, neck and face: did not reveal any evidence of significant rashes or suspicious appearing nevi or other concerning lesions. Endocrine examination: I do not feel any thyroid nodules. No thyromegaly. Respiratory: chest is symmetrical, breathing comfortably without effort. The patient has been counseled on tobacco cessation: Not Applicable Diagnosis Plan 1. Left thyroid nodule Clinic Appointment Request NATE MOSQUEDA 2. Hyperparathyroidism ([facility]) Clinic Appointment Request NATE MOSQUEDA IMPRESSION/PLAN: Ms. Robert returns to our clinic today doing very well. The patient has had improvement in her overall function following her operation. The patient is closely followed by her refrigeration mechanic. She will follow in our clinic on an as- needed basis. She is advised that she may contact us in the future if she has any additional questions or concerns. MIGUEL ÁNGEL Browne Digital speech recognition software was used to dictate this note and, despite all efforts to proofread, some dictation errors may occur. If you have any questions, please do not hesitate to contact me. [1] Past Medical History: Diagnosis Date Asthma Awareness under anesthesia Patient reports that one time she did not get enough anesthesia and woke up during surgery CHF (congestive heart failure) ([facility]) Chronic renal failure, stage 3 (moderate) ([facility]) Conversions - Other Anxiety (Symptom) Conversions - Other Arthritis Conversions - Other Diabetes Mellitus Conversions - Other Esophageal Reflux Conversions - Other Gout Conversions - Other Hyperlipidemia Conversions - Other Hypertension Conversions - Other Psoriasis Conversions - Other Urinary Calculus Conversions - Other Urinary Tract Infection COPD (chronic obstructive pulmonary disease) ([facility]) 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 Coronary calcification by CT scan 03/2016 Last Assessment & Plan: Formatting of this note might be different from t Diabetes mellitus ([facility]) Essential hypertension 08/01/2014 Last Assessment & Plan: Hypertension is unchanged. Continue current treatment regimen. Blood pressure will be reassessed at the next regular appointment. Last Assessment & Plan: Formatting of this note might be different from theoriginal. Hypertension is unchanged. Continue current treatment regimen. 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 A1c okay at 5.6% but having more hypos now. Continue current treatment regimen. But decrease basal insulin by 10u. Diabetes will be reassessed in 3 months. Cosigned by Nate Mosqueda MD at 03/31/2025 12:55 PM EDT Associated attestation - Nate Mosqueda MD - 03/31/2025 12:55 PM EDT I saw and examined this patient with Mr. Myrtle PA-C. I have discussed, reviewed and agree with his assessment and plan of treatment. Nate Mosqueda MD documented in this encounter Plan of Treatment Upcoming Encounters Date Type Department Care Team (Late st Contact Info) Description 05/20/2025 8:40 AM EDT Office Visit [facility] [address] [place] [address] Hetal Robertson, YORDY [address] [address] documented as of this encounter Visit Diagnoses Diagnosis Left thyroid nodule Hyperparathyroidism ([facility]) Hyperparathyroidism, unspecified documented in this encounter Additional Health Concerns Assessment Noted Time PHQ-9 Depression Total Score: 15 022 1:26 PM EST A fall risk assessment has been complete d for the patient 03/22/2025 9:47 AM EDT A Body Mass Index follow-up plan has been documented for the patient 12/31/2024 8:56 AM EDT documented as of this encounter Care Teams Solid Waste Truck Driver Relationship Specialty Start Date End Date Tavo Read DO [address] [place] [address] PCP - General 11/11/24 documented as of this encounter
[2025-05-11 11:35] LABS: Microscopic, Urine URINE MICROSCOPIC (MICROSCOPIC)
--- OUTSIDE RECORDS SUMMARY | 2025-05-11 11:40 | XMS_ITS | Clinical Summary ---
Author Organization [facility] Address [address] [place] [address] Phone Care Team Providers Care Work And Family Life Consultant Name Role Phone Unavailable Primary Care [...] Density Screening 2021 COVID-19 Vaccine ( season) 2025 06/14/2022, 06/30/2021, 11/19/2020, Additional history exists Influenza [...]
--- OUTSIDE RECORDS SUMMARY | 2025-05-11 11:40 | XMS_ITS | Encounter Summary ---
Author Organization [facility] Address [address] 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 [...] Description 05/20/2025 8:40 AM EDT Office Visit [facility] [address] [place] [address] Hetal Robertson, OPERATIONAL ASSISTANT [address] [address] documented as of this encounter Visit Diagnoses 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
--- OUTSIDE RECORDS SUMMARY | 2025-05-11 11:40 | XMS_ITS | Encounter Summary ---
Author Organization [facility] Address [address] [place] [address] Care Team Providers Care Occupational Therapy Supervisor Name Role Phone Perry Askew MD Primary Care Provider [phone] Ricardo Lemons MD Primary Care Provider [phone] Tavo Read DO Primary Care Provider [phone] Encounter Details Date Type Department Care Team (Late Contact Info) Description 06/14/2022 Orders Only External Location [address] [place] [address] Provider, External Social History Tobacco Use Types [...] Description 05/20/2025 8:40 AM EDT Office Visit [facility] [address] [place] [address] Hetal Robertson, POLICE JUDGE [address] [address] documented as of this encounter [...] documented as of this encounter Care Teams Occupational Therapy Supervisor Relationship Specialty Start Date End Date Perry Askew MD PCP - General 02/11/22 07/02/23 Ricardo Lemons MD [address] [place] [address] [place] [address] PCP - General 07/03/23 11/10/24 Tavo Read DO 1210 [facility] [address] [place] [address] PCP - General 11/11/24 documented as of this encounter
--- OUTSIDE RECORDS SUMMARY | 2025-05-11 11:40 | XMS_ITS | Encounter Summary ---
Author Organization [facility] Address [address] 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 [...] Visit [facility] [address] [place] [address] Hetal Robertson, PROPERTY MANAGEMENT BOOKKEEPER [address] [address] documented as of this encounter Visit Diagnoses 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
--- OUTSIDE RECORDS SUMMARY | 2025-05-11 11:40 | XMS_ITS | Clinical Summary ---
Author Organization [facility] Address [address] [place] [address] Care Team Providers Care Medical Records Manager Name Role Phone JacekTavo moon Carmine Primary [...] (ZEBeta) 10 MG tablet 1 tablet Daily. 0 Active atorvastatin (LIPITOR) 20 MG tablet 1 tablet Every Night. 0 Active ProAir RespiClick 108 (90 Base) MCG/ACT inhaler INL 2 PFS PO Q 6 H PRN 0 Active nitrofurantoin (MACRODANTIN) 50 MG capsule Take 1 capsule by mouth Daily. 1 Active potassium citrate (UROCIT-K) 10 MEQ (1080 MG) CR tablet 1 Active nystatin-triam cinolone (MYCOLOG II) 060626-4.1 UNIT/GM-% cream APPLY TOPICALLY TO THE AFFECTED AREA TWICE DAILY FOR 10 DAYS 1 Active Insulin Lispro 100 UNIT/ML solution cartridge Inject 38u at BF, 40u at lunch; and 70u at supper 140 mL 3 3 Active diphenhydrAMIN E-acetaminophe n (TYLENOL PM) 25-500 MG tablet per tablet Take 2 tablets by mouth At Night As Needed for Sleep. Active Lancets misc Use 1 each 4 (Four) Times a Day. 400 each 3 4 Active Blood Glucose Monitoring Suppl (ONE TOUCH ULTRA 2) w/Device kit Use 1 each See Admin Instructions. Use to check blood sugar 4 times daily. Dx E11.65 1 each 4 Active OneTouch Ultra test strip USE TO TEST three TIMES DAILY DX CODE E11.65 300 each 3 4 Active Blood Glucose Monitoring Suppl (Easy Touch Glucose System) w/Device kit Use to test blood sugar 4 times daily. Dx E11.65 1 kit 4 Active glucose blood (Easy Touch HealthPro Glucose) test strip Use to test blood sugar 4 times daily. Dx E11.65 400 each 4 Active Insulin Syringe-Needle U-100 (BD Insulin Syringe U/F) 31G X 5/16 1 ML misc Use 1 each 5 (Five) Times a Day. 500 each 3 4 Active aspirin 81 MG EC tablet Take 1 tablet by mouth Daily. Active losartan (COZAAR) 100 MG tablet Take 1 tablet by mouth Daily. 4 Active Insulin Lispro (HumaLOG) 100 UNIT/ML injection Inject 38u at BF, 40u at lunch; and 70u at supper 150 mL 3 4 Active glucose blood test strip Use to test blood sugar four times daily Dx e11.65 Dispense easy touch test strips. 400 each 4 Active Insulin Degludec (Tresiba FlexTouch) 200 UNIT/ML solution pen-injector pen injection Inject 210 Units under the skin into the appropriate area as directed Every Night. 90 mL 5 Active Insulin Pen Needle (Pen Frederic) 32G X 4 MM misc Use 1 each Daily. 100 each 3 5 Active Magnesium Oxide -Mg Supplement 400 (240 Mg) MG tablet Take 1 tablet by mouth Daily. Active calcitriol (ROCALTROL) 0.25 MCG capsule Take 1 capsule by mouth Daily. 90 capsule 3 5 Active levothyroxine (SYNTHROID, LEVOTHROID) 100 MCG tablet Take 1 tablet by mouth Daily. 90 tablet 3 5 Active Semaglutide, 1 MG/DOSE, (Ozempic, 1 MG/DOSE,) 4 MG/3ML solution pen-injector INJECT 1 MG SUBCUTANEOUSLY ONCE a WEEK DIRECTED 9 mL 3 5 Active Active Problems Problem Noted Date [...] Diabetes will be reassessed in 6 months. [employer] G7 CGM was downloaded today. Data was [...] months. Continue CGM. She didn't have the [employer] [place] with her today so we couldn't download [...] okay. PTH was elevated. She is seeing tank filler later this month. 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 05/20/2016 Overview [...] Type Department Care Team Description 03/28/2025 Refill [facility] ENDOCRINOLOGY [address] [place] [address] Noam Brower MD 02/10/2025 Results Follow-Up [facility] [address] [place] [address] Noam Brower MD 02/09/2025 1:15 PM EDT Office Visit [facility] [address] [place] [address] Noam Brower MD Uncontrolled type 2 diabetes mellitus with hyperglycemia (Primary Dx); Essential hypertension; Mixed hyperlipidemia; Coronary artery disease involving [place] coronary artery of [place] heart with angina pectoris; Hypoparathyroidism after procedure; History of partial thyroidectomy 02/09/2025 Telephone [facility] [address] [place] [address] Noam Brower MD Labs Only 02/09/2025 Travel 02/08/2025 Telephone [facility] [address] [place] [address] Noam Brower MD PT NOTES TO BE FAXED from Last 3 Months Family History Medical [...] Description 10/05/2025 2:45 PM EST Office Visit [facility] [address] [facility] [address] [place] [address] Noam Brower MD [address] [facility] [address] [place] [address] Health Maintenance Due Date Last [...] 08/28/2020 HEPATITIS C SCREENING 08/28/2020 COVID-19 Vaccine (6 2023-2 5 season) 2024 07/16/2023, 06/14/2022, 06/30/2021, [...] * (ABNORMAL) TSH (02/09/2025 1:52 PM EDT) TSH 0.007(L) 0.270 - 4.200 uIU/mL 02/09/2025 11:12 PM EDT [facility] Blood Venipuncture / Unknown 02/09/2025 1:52 PM EDT 02/09/2025 1:52 PM EDT Noam Brower MD LAB BLOOD ORDERABLES Jeanne l Result [facility]
[address] [place] [address], * (ABNORMAL) T4, Free (02/09/2025 1:52 PM EDT) [facility] Free T4 2.27(H) 0.92 - 1.68 ng/dL 02/09/2025 11:12 PM EDT [facility] Blood Venipuncture / Unknown 02/09/2025 1:52 PM EDT 02/09/2025 1:52 PM EDT Noam Brower MD LAB BLOOD ORDERABLES Jeanne l Result Performing Organization Address City/[facility]/ZIP Co de Phone Number [facility]
[address] [place] [address], * (ABNORMAL) PTH, Intact (02/09/2025 1:52 PM EDT) Pathologist [facility] PTH, Intact 5.4(L) 15.0 - 65.0 pg/mL 02/09/2025 11:45 PM EDT [facility] Blood Structure of left upper limb / Unknown Venipuncture / Unknown 02/09/2025 1:52 PM EDT 02/09/2025 1:52 PM EDT Narrative [facility] - 02/09/2025 11:45 PM EDT Results may be falsely decreased if patient taking Biotin. Noam Brower MD LAB BLOOD ORDERABLES Jeanne vick Result [facility]
[address] [place] [address], * (ABNORMAL) Comprehensive Metabolic Panel (02/09/2025 1:52 PM EDT) Glucose 65 65 - 99 mg/dL 02/09/2025 11:06 PM EDT [facility] BUN 37.0(H) 8.0 - 23.0 mg/dL 02/09/2025 11:06 PM EDT [facility] Creatinine 2.70(H) 0.57 - 1.00 mg/dL 02/09/2025 11:06 PM EDT [facility] Sodium 145 136 - 145 mmol/L 02/09/2025 11:06 PM EDT [facility] Potassium 4.7 3.5 - 5.2 mmol/L 02/09/2025 11:06 PM EDT [facility] Chloride 102 98 - 107 mmol/L 02/09/2025 11:06 PM EDT [facility] CO2 30.1(H) 22.0 - 29.0 mmol/L 02/09/2025 11:06 PM EDT [facility] Calcium 11.2(H) 8.6 - 10.5 mg/dL 02/09/2025 11:06 PM EDT [facility] Total Protein 7.1 6.0 - 8.5 g/dL 02/09/2025 11:06 PM EDT [facility] Albumin 4.2 3.5 - 5.2 g/dL 02/09/2025 11:06 PM EDT [facility] ALT (SGPT) 11 1 - 33 U/L 02/09/2025 11:06 PM EDT [facility] AST (SGOT) 13 1 - 32 U/L 02/09/2025 11:06 PM EDT [facility] Alkaline Phosphatase 60 39 - 117 U/L 02/09/2025 11:06 PM EDT [facility] Total Bilirubin 0.4 0.0 - 1.2 mg/dL 02/09/2025 11:06 PM EDT [facility] Globulin 2.9 gm/dL 02/09/2025 11:06 PM EDT [facility] A/G Ratio 1.4 g/dL 02/09/2025 11:06 PM EDT [facility] BUN/Creatinine Ratio 13.7 7.0 - 25.0 02/09/2025 11:06 PM EDT [facility] Anion Gap 12.9 5.0 - 15.0 mmol/L 02/09/2025 11:06 PM EDT [facility] eGFR 18.7(L) >60.0 mL/min/1.7 3 02/09/2025 11:06 PM EDT [facility] Blood Venipuncture / Unknown 02/09/2025 1:52 PM EDT 02/09/2025 1:52 PM EDT [facility] - 02/09/2025 11:06 PM EDT GFR [...] MD LAB BLOOD ORDERABLES Jeanne vick Result [facility]
[address] [place] [address], * POC Glucose, Blood (02/09/2025 1:30 PM EDT) [facility] Signature Glucose 81 70 - 130 mg/dL Lot Number [id number] Expiration Date 09/03/2025 Blood 02/09/2025 1:30 PM EDT us Noam Brower MD POINT OF CARE TEST ORDERA BLES Final Result * POC Glycosylated Hemoglobin (Hb A1C) (02/09/2025 1:30 PM EDT) Hemoglobin A1C 5.1 4.5 - 5.7 % [facility] Lot Number [id number] [facility] Expiration Date 11/03/2026 [facility] Blood 02/09/2025 1:30 PM EDT us Noam Brower MD POINT OF CARE TEST ORDERA BLES Final Result [facility]
[address] [place] [address], * (ABNORMAL) Lipid Panel (07/14/2024 10:27 AM EST) Total Cholesterol 154 0 - 200 mg/dL 07/14/2024 2:42 PM EST [facility] Triglycerides 154(H) 0 - 150 mg/dL 07/14/2024 2:42 PM EST [facility] HDL Cholesterol 36(L) 40 - 60 mg/dL 07/14/2024 2:42 PM EST [facility] LDL Cholesterol 91 0 - 100 mg/dL 07/14/2024 2:42 PM EST [facility] VLDL Cholesterol 27 5 - 40 mg/dL 07/14/2024 2:42 PM EST [facility] LDL/HDL Ratio 2.42 07/14/2024 2:42 PM EST [facility] Blood Structure of left upper limb / Unknown Venipuncture / Unknown 07/14/2024 10:27 AM EST 07/14/2024 10:28 AM EST [facility] - 07/14/2024 2:42 PM EST Cholesterol [...] MD LAB BLOOD ORDERABLES Jeanne vick Result [facility]
[address] [place] [address], * EYE EXAM SCANNED (03/01/2024) Anatomical Region Laterality Modality Other Darryl Francois OD CHART REVIEW TABS Final Resu lt from Last 3 Months or Most Recently Relevant to Health Maintenance Insurance [facility] MEDICARE A & B Member Subscriber Plan / Payer (Ef fective 2021-Present) Name:Bobbi Robert Member ID:[id number] Relation to Subscriber:Self Name:Bobbi Robert Subscriber ID:[id number] Payer ID:[id number] Group ID:Not on file Type:Not on file Address: [address] [employer] Care Teams Medical Records Manager Relationship Specialty Start Date End Date Tavo Read DO [address] [place] [address] PCP - General Internal Medicine 07/21/24
--- OUTSIDE RECORDS SUMMARY | 2025-05-11 11:40 | XMS_ITS | Encounter Summary ---
Author Organization [facility] Address [address] [place] [address] Care Team Providers Care Commercial Plumber Name Role Phone Perry Askew MD Primary Care Provider [phone] Ricardo Lemons MD Primary Care Provider [phone] Tavo Read DO Primary Care Provider [phone] Reason for Referral * Consultation (Routine) - Closed Specialty Diagnoses / Procedures Referred By Contirma t Referred To Contact Otolaryngology Diagnoses Congenital malformations of other endocrine glands Perry Askew MD Phone: tel: fax: Referral ID Status Reason Start Date Expiration Date V isits Requested Visits Authorized [id number] Closed Specialty Services Required 06/27/2022 12/27/2023 1 1 Encounter Details Date Type Department Care Team (Latest Contact Info) Description 06/27/2022 Community [facility] [address] [place] [address] Perry Askew MD [address] [place] [address] 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
--- OUTSIDE RECORDS SUMMARY | 2025-05-11 11:40 | XMS_ITS | Encounter Summary ---
Author Organization Healthcare Address [address] [place] [address] Care Team Providers Care Functional Consultant Name Role Phone Ricardo Lemons MD Primary Care Provider [phone] Tavo Read DO Primary Care Provider [phone] Reason for Visit * Reason Comments Med Refill Encounter Details Date Type Department Care Team ([facility] st Contact Info) Description 03/29/2024 Refill [facility] [address] [place] [address] Hetal Robertson, ELECTROPLATER [address] [address] Social History Tobacco Use Types [...] drink first t srinivasan in the morning (EYE-QUALITY ASSURANCE QA LAB ANALYST) to steady your nerves or to get [...] Description 05/20/2025 8:40 AM EDT Office Visit [facility] [address] [place] [address] Hetal Robertson, ELECTROPLATER [address] [address] documented as of this encounter [...] documented as of this encounter Care Teams Functional Consultant Relationship Specialty Start Date End Date Ricardo Lemons MD [address] [facility] [place] [address] PCP - General 07/03/23 11/10/24 Tavo Read DO [address] [place] [address] PCP - General 11/11/24 documented as of this encounter
--- OUTSIDE RECORDS SUMMARY | 2025-05-11 11:40 | XMS_ITS | Encounter Summary ---
[facility] Address [address] [place] [address] Care Team Providers Care Architecture Consultant Name Role Phone Tavo Read Primary Care Provider + Reason for Visit * Reason Comments Med Refill Encounter Details Date Type Department Care Team (Late st Contact Info) Description 03/28/2025 Refill [facility] ENDOCR[facility]OLOGY [address] [facility] [address] [place] [address] Noam Brower MD [address] [place] [place] [address] [address] Social History Tobacco Use Types [...] Visit [facility] [address] [place] [address] Noam Brower MD [facility] [address] documented as of this encounter Visit Diagnoses Not on filedocumented in this encounter Care Teams Architecture Consultant Relationship Specialty Start Date End Date Tavo Read DO [address] [place] [address] PCP - General Internal Medicine 07/21/24 documented as of this encounter
--- OUTSIDE RECORDS SUMMARY | 2025-05-11 11:40 | XMS_ITS | Clinical Summary ---
Author Organization [facility] Address [address] [place] [address] Care Team Providers Care Extermination Inspector Name Role Phone Tavo Read Paige WING Primary Care Provider [phone] Allergies Active Allergy Reactions Criticality Noted Date [...] 3 months. 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 PTH was elevated. She is seeing data capture specialist later this month. Last Assessment & Plan: Recent ionized calcium and phos were okay. PTH was elevated. She is seeing data capture specialist later this month. Nontoxic uninodular goiter 09/05/2020 [...] & Respiratory [address] [place] [address] Nate Mosqueda MD Left thyroid nodule; Hyperparathyroidism (CMS/HCC) 03/22/2025 Travel from Last 3 Months Immunizations Immunization [...] drink first t srinivasan in the morning (EYE-CITY PLANNING ENGINEER) to steady your nerves or to [...] Description 05/20/2025 8:40 AM EDT Office Visit [facility] [address] [place] [phone] Hetal Robertson, NURSE STAFF [facility] [address] [address] Health Maintenance Due Date Last Done Comments [facility]-Bone Density Scan 1956 [facility]-Diabetes: Hemoglobin A1C 1956 [facility]-Hepatitis C Screening 1956 UK-Medicare Annual Wellness (AWV) 1956 [facility]-/Child/Adol SDOH Screenings 1956 Diabetes: Dental Exam 1966 [facility]- SDOH Screenings 1974 [facility]-Adult SDOH Screenings 1974 [facility]-Pneumococcal Vaccine: 50+ Years (1 of 2 - PCV) 1975 CT Colonography 2001 Colonoscopy 2001 FIT-DNA 2001 FIT 2001 FOBT 2001 Sigmoidoscopy 2001 [facility]-Colorectal Cancer Screening 2001 [facility]-Breast Cancer Screening 2006 [facility]-Depression Screening 08/05/2023 08/05/2022, 07/09 [id number] Vaccine ( season) 2024 07/16/2023, 06/14/2022, 06/30/2021, [...] this topic Medical Devices Implanted Type Area Drier Helper Device Identifier Shelf Expiration Date Model / Serial / Lot Robsonn Plus - [id number] - [id number] Implanted:Qty : 1 on 07/18/2021 by Claude Ruano MD at [facility] Implant N/A: Throat [id number] 02/10/2023 [id number] / [id number] / Tendril Mri Ra Lead [facility] [employer]-07/08/20 17 Implanted: (Quantity not on file) Lead Chest [employer] [id number] / / Tendril Mri Rv Lead [employer]-07/08/20 17 Implanted: (Quantity not on file) Lead Chest [employer] [id number] / / Assurity Mri [employer] Pacemaker- Implanted: (Quantity not on file) Pacemaker Chest [employer] [id number] / / Description:RA LEAD MODEL: [id number] RV LEAD MODEL: [id number] Insurance MEDICARE [facility] Advance Directives * Full Code (Latest Code Status on File) Date Activated Date Inactivated Comments 10/04/2024 7:25 PM 10/07/2024 10:34 AM Question Answer Comments Patient has decision-making capacity? Yes * Full Code Date Activated Date Inactivated Comments 08/12/2022 1:46 PM 08/13/2022 12:30 PM Question Answer Comments Patient has decision-making capacity? Yes Care Teams Extermination Inspector Relationship Specialty Start Date End Date Tavo Read, DO [address] [place] [id number] PCP - General 11/11/24
--- OUTSIDE RECORDS SUMMARY | 2025-05-11 11:40 | XMS_ITS | Encounter Summary ---
Author Organization [facility] Address [address] [place] [address] Care Team Providers Care Mining Machinery Assembler Name Role Phone Tavo Read Paige WING Primary Care Provider [phone] Encounter Details Date Type Department Care Team [...] drink first t srinivasan in the morning (EYE-DIRECTOR EMBALMER) to steady your nerves or to get [...] Description 05/20/2025 8:40 AM EDT Office Visit [facility] [address] [place] [phone] Hetal Robertson, ZIGZAG TUNNEL ELASTIC OPERATOR [address] [address] documented as of this encounter [...] documented as of this encounter Care Teams Mining Machinery Assembler Relationship Specialty Start Date End Date Tavo Read DO [address] [place] [address] PCP - General 11/11/24 documented as of this encounter
[2025-05-11 12:13] LABS: Hematocrit 36.3 % (37.0-47.0); Hemoglobin 11.7 g/dL (12.2-16.2); Mean Corpuscular HGB Conc 32.2 g/dL (31.8-35.4); Mean Corpuscular Hemoglobin 30.0 pg (27.0-31.2); Mean Corpuscular Volume 93.1 fl (81-99); Nucleated Red Blood Cells % 0 %; Platelet Count 213 K/mm3 (142-424); Red Blood Count 3.90 M/mm3 (4.20-5.40); Red Cell Distribution Width-SD 48.7 fL; White Blood Count 11.2 K/mm3 (4.8-10.8)
[2025-05-11 12:17] LABS: Bilirubin,Urine Negative (Negative); Color,Urine YELLOW (Yellow); Glucose,Urine (UA) Negative (Negative); Ketones,Urine Negative (Negative); Leukocyte Esterase,Urine 1+ (Negative); PH,Urine 7.0 (5.0-8.5); Protein,Urine Negative (Negative); Specific Gravity, Urine 1.010 (1.005-1.030); Urobilinogen,Urine 0.2 EU/dl (0.2)
[2025-05-11 12:39] LABS: Albumin Level 4.2 g/dl (3.5-5.0); Anion Gap 13.6 mEq/L (5-15); Blood Urea Nitrogen 36 mg/dl (7-17); Calcium 8.7 mg/dl (8.4-10.2); Carbon Dioxide 31 mmol/L (22.0-30.0); Chloride 103 mmol/L (98-107); Creatinine,Serum 2.00 mg/dl (0.52-1.04); Estimated Glomerular Filt Rate 25 ml/min (>60); GFR (African American) 30 ML/MIN (>60); Glucose 106 mg/dl (74-100); Phosphorous 3.6 mg/dl (2.5-4.5); Potassium 5.6 mmoL/L (3.5-5.1); Sodium 142 mmol/L (136-145)
[2025-05-11 13:00] LABS: Bacteria,Urine Trace /lpf
[2025-05-11 13:05] LABS: 25-OH Vitamin D, Total 29.1 ng/mL (30-100)
== END 2025-05-11 23:59 | disposition home or self-care (01) ==
LOC: LAB 11:19
PROVIDERS: PCP Internal Medicine; Visit Provider Nurse Practitioner
DX: N18.4 Chronic kidney disease, stage 4 (severe) (principal)
CPT/HCPCS: 36415; 80069; 81001; 82306; 82570; 83970; 84156; 85027; 87086

== ENCOUNTER 2025-06-06 11:32 | Outpatient (CLI) | payer MEDICARE, SELFPAY ==
--- OUTSIDE RECORDS SUMMARY | 2025-05-20 08:40 | XMS_ITS | Encounter Summary ---
Author Organization [facility] Address [address] [place] [address] Care Team Providers Care Drawing In Hand Name Role Phone Lilliam Readew Paige WING Primary Care Provider [phone] Reason for Referral * Consultation (Routine) - Authorized Specialty Diagnoses / Procedures Referred By Contirma t Referred To Contact Diagnoses CKD (chronic kidney disease) stage 4, GFR 15-29 ml/min (CMS/HCC) Hetal Robertson APRN [address] [address] Phone: tel: fax: Referral ID Status Reason Start Date Expiration Date V isits Requested Visits Authorized [id number] Authorized 05/20/2025 11/19/2026 1 1 Encounter Details Date Type Department Care Team (Late st Contact Info) Description 05/20/2025 8:40 AM EDT Office Visit [facility] [address] [place] [address] Hetal Robertson APRN [address] [address] CKD (chronic kidney disease) stage 4, GFR 15-29 ml/min (CMS/HCC) (Primary Dx); Diabetes mellitus due to underlying condition with diabetic chronic kidney disease, unspecified CKD stage, unspecified whether intermediate accountant insulin use (CMS/HCC); Essential hypertension; History of parathyroidectomy; Localized edema Social History Tobacco Use Types Packs/Day Years [...] drink first t srinivasan in the morning (EYE-DOCUMENT CONTROL MANAGER) to steady your nerves or to get [...] Progress Notes - Hetal Robertson APRN - 05/20/2025 8:40 AM EDT CAROLANN Robert is a 69 y.o. female who presents for follow-up. Telehealth Statement Patient Verification Patient identity has been confirmed using name and date of ? Yes Authorizations and Agreements/Telemedicine Consent sent and consent confirmed? Yes Patient Location: Home/Other Patient confirms they are physically located in [place]? Yes If the patient is not physically located in [place], the provider has confirmed with [facility] thatthe provider is authorized to provide services in patient's stated location? N/A Provider Location: [facility] facility Audio and video or audio only? Audio only Total visit time: 21 minutes history of type 2 diabetes and hypertension, here for followup in the [facility]. Baseline creatinine is between 1.5 [...] a week. Continues to have BLE edema 05/20/25 Creatinine elevation to 3 after diuretic adjustment. They were held and creatinine went down to 2.5. Creatinine now at 2 OBJECTIVE Encounter done via audio only: Speaking in full sentences, no apparent distress, answers questions appropriately LAB RESULTS 09/2022 Hemoglobin 13.5 sodium 143 [...] calcium 10.6 11/11/24 Cr 1.87, calcium 8.6 05/16/25 Cr 2 ASSESSMENT/PLAN 1. Chronic kidney disease, stage IIIb, [...] 5. DM2, follows with Dr. Brower in [facility] negative. 6. Hypercalcemia/hyperparathyroidism- s/p parathyroidectomy 7. FVO, LE edema RTC 4 mo with labs Patient is reluctant to resume diuretics. Discussed role of FVO and CHF with renal function. Reviewed creatinine is diluted and likely not adequately representing renal function given sig edema. Encouraged to resume diruetic even if only every other day. She notes she is to see cardiology next month and she will discuss with them as they had stopped diuretic due to renal function. Attempted to explain dilution and role of excess fluid and heart/renal failure. I will reach out to Cardiology and recommend right heart cath vs echo for better volume status eval. Patient instructed to go to ED if SOA or if edema worsens any further. documented in this encounter Plan of Treatment Upcoming Encounters Date Type Department Care Team (Late st Contact Info) Description 08/19/2025 8:40 AM EST Office Visit [facility] [address] [place] [address] Hetal Robertson, YORDY [address] [address] Scheduled Orders Name Type Priority Associated Diagnoses Orde r Schedule CBC W/O Differential Lab Routine CKD (chronic kidney disease) stage 4, GFR 15-29 ml/min (CMS/HCC) Expected: 05/20/2025 (Approximate), Expires: 11/17/2026 Protein, Random, Urine with Creatinine Lab Routine CKD (chronic kidney disease) stage 4, GFR 15-29 ml/min (CMS/HCC) Expected: 05/20/2025 (Approximate), Expires: 11/17/2026 Urinalysis with reflex microscopic (Culture NOT Included) Lab Routine CKD (chronic kidney disease) stage 4, GFR 15-29 ml/min (CMS/HCC) Expected: 05/20/2025 (Approximate), Expires: 11/17/2026 Renal Function Panel, Plasma Lab Routine CKD (chronic kidney disease) stage 4, GFR 15-29 ml/min (CMS/HCC) Expected: 05/20/2025 (Approximate), Expires: 11/17/2026 Scheduled Referrals Name Type Priority Associated Diagnoses Order Schedule Follow Up Nephrology Outpatient Referral Routine CKD (chronic kidney disease) stage 4, GFR 15-29 ml/min (CMS/HCC) Expected: 08/19/2025 (Approximate), Expires: 06/19/2026 documented as of this encounter Visit Diagnoses Diagnosis CKD (chronic kidney disease) stage 4, GFR 15-29 ml/min (CMS/HCC)- Primary Chronic kidney disease, Stage IV (severe) Diabetes mellitus due to underlying condition with diabetic chronic kidney disease, unspecified CKD stage, unspecified whether intermediate accountant insulin use Essential hypertension Unspecified essential hypertension History of parathyroidectomy Localized edema Edema documented in this encounter Additional Health Concerns Assessment Noted Time PHQ-9 Depression Total Score: 15 022 1:26 PM EST A fall risk assessment has been complete d for the patient 03/22/2025 9:47 AM EDT A Body Mass Index follow-up plan has been documented for the patient 05/20/2025 10:11 AM EDT documented as of this encounter Care Teams Drawing In Hand Relationship Specialty Start Date End Date Tavo Read DO [address] [place] [address] PCP - General 11/11/24 documented as of this encounter
--- OUTSIDE RECORDS SUMMARY | 2025-06-06 11:35 | XMS_ITS | Clinical Summary ---
[facility] Address [address] [place] [address] Care Team Providers Care Teacher Assistant Name Role Phone JacekTavo moon Carmine Primary [...] tablet 1 Active nystatin-triam cinolone (MYCOLOG II) 911857-5.1 UNIT/GM-% cream APPLY TOPICALLY TO THE AFFECTED [...] mL 5 Active Insulin Pen Needle (Pen [place]) 32G X 4 MM misc Use 1 [...] Diabetes will be reassessed in 6 months. [employer] G7 CGM was downloaded today. Data was [...] months. Continue CGM. She didn't have the [employer] [place] with her today so we couldn't download [...] okay. PTH was elevated. She is seeing clinic office manager later this month. 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 05/20/2016 Overview [...] Type Department Care Team Description 03/28/2025 Refill [facility] ENDOCRINOLOGY [address] [facility] [address] [place] [address] Noam Brower MD from Last 3 Months Family History Medical [...] Description 10/05/2025 2:45 PM EST Office Visit [facility] [address] [facility] [address] [place] [phone] Noam Brower MD [address] [facility] [address] [place] [address] Health Maintenance Due Date Last Done Comments DXA SCAN 1956 DIABETIC FOOT EXAM 1966 Pneumococcal Vaccine 50+ (1 of 2 - PCV) 1975 MAMMOGRAM 1996 COLOGUARD 2001 COLON CANCER SCREENING 5 YEA R SIGMOIDOSCOPY 2001 COLONOSCOPY [address] CANCER SCREENING 2001 CT COLONOGRAPHY 2001 FECAL OCCULT BLOOD TEST 2001 FIT Testing (1 year) 2001 ANNUAL WELLNESS VISIT 08/28/2020 HEPATITIS C SCREENING 08/28/2020 DIABETIC EYE EXAM 03/01/2025 03/01/2024, , 11/25/2020 INFLUENZA VACCINE 04/08/2025 06/17/2024, , 08/23/2022, Additional history exists COVID-19 Vaccine (2024-2 6 season) 2025 07/16/2023, 06/14/2022, 06/30/2021, Additional history exists LIPID PANEL 07/14/2025 07/14/2024, 03/08, 02/07/2022 URINE MICROALBUMIN-CREATININ E RATIO (uACR) 07/14/2025 07/14/2024 HEMOGLOBIN A1C 08/11/2025 02/09/2025, 11/02/2024, 12/23/2023, Additional history exists TDAP/TD VACCINES (2 - Td or Tdap) 01/07/2027 017 ZOSTER VACCINE Completed 03/01/2024, 12/04/2023 Procedures Procedure Name Priority Date/Time Associated Diagnosis Comments POCT GLYCOSYLATED HEMOGLOBIN (HGB A1C) Routine 02/09/2025 1:30 PM EDT Uncontrolled type 2 diabetes mellitus with hyperglycemia LIPID PANEL Routine 07/14/2024 10:27 AM EST Uncontrolled type 2 diabetes mellitus with hyperglycemia SCANNED - EYE EXAM 03/01/2024 from Last 3 Months or Most Recently Relevant to Health Maintenance Results * POC Glycosylated Hemoglobin (Hb A1C) (02/09/2025 1:30 PM EDT) Hemoglobin A1C 5.1 4.5 - 5.7 % [facility] Lot Number [id number] [facility] Expiration Date 11/03/2026 [facility] Blood 02/09/2025 1:30 PM EDT Noam Brower MD POINT OF CARE TEST ORDERA BLES Final Result [facility]
[address] [place] [address], * (ABNORMAL) Lipid Panel (07/14/2024 10:27 AM EST) Total Cholesterol 154 0 - 200 mg/dL 07/14/2024 2:42 PM EST [facility] Triglycerides 154(H) 0 - 150 mg/dL 07/14/2024 2:42 PM EST [facility] HDL Cholesterol 36(L) 40 - 60 mg/dL 07/14/2024 2:42 PM EST [facility] LDL Cholesterol 91 0 - 100 mg/dL 07/14/2024 2:42 PM EST [facility] VLDL Cholesterol 27 5 - 40 mg/dL 07/14/2024 2:42 PM EST [facility] LDL/HDL Ratio 2.42 07/14/2024 2:42 PM EST [facility] Blood Structure of left upper limb / Unknown Venipuncture / Unknown 07/14/2024 10:27 AM EST 07/14/2024 10:28 AM EST Narrative [facility] - 07/14/2024 2:42 PM EST Cholesterol [...] MD LAB BLOOD ORDERABLES Jeanne vick Result [facility]
[address] [place] [address], * EYE EXAM SCANNED (03/01/2024) Anatomical Region Laterality Modality Other Darryl Francois OD CHART REVIEW TABS Final Resu lt from Last 3 Months or Most Recently Relevant to Health Maintenance Insurance [facility] MEDICARE A & B [facility] OPTIONS Care Teams Teacher Assistant Relationship Specialty Start Date End Date Tavo Read DO [address] [place] [address] PCP - General Internal Medicine 07/21/24
--- OUTSIDE RECORDS SUMMARY | 2025-06-06 11:35 | XMS_ITS | Encounter Summary ---
Author Organization [facility] Address [address] [place] [address] Care Team Providers Care Security Vehicle Patrol Officer Name Role Phone Perry Askew MD Primary Care Provider [phone] Ricardo Lemons MD Primary Care Provider [phone] Tavo Read DO Primary Care Provider [phone] Encounter Details Date Type Department Care Team (Late Contact Info) Description 06/24/2022 Community [facility] [address] [place] [address] Perry Askew MD [address] [place] [address] Congenital anomalies of other endocrine glands (Primary [...] Department Care Team (Late Contact Info) Description 08/19/2025 8:40 AM EST Office Visit [facility] [address] [place] [address] Hetal Robertson, HEAD SAWYER [address] [address] documented as of this encounter Visit Diagnoses Diagnosis 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
--- OUTSIDE RECORDS SUMMARY | 2025-06-06 11:35 | XMS_ITS | Encounter Summary ---
Author Organization [facility] Address [address] 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 [...] Description 08/19/2025 8:40 AM EST Office Visit [facility] [address] [place] [address] Hetal Robertson, MANAGER FIELD INVESTIGATIONS [address] [address] documented as of this encounter Visit Diagnoses Diagnosis 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
--- OUTSIDE RECORDS SUMMARY | 2025-06-06 11:35 | XMS_ITS | Clinical Summary ---
Author Organization [facility] Address [address] [place] [address] Phone Care Team Providers Care Surface Grinding Machine Hand Name Role Phone Unavailable Primary Care Provider [...]
--- OUTSIDE RECORDS SUMMARY | 2025-06-06 11:35 | XMS_ITS | Clinical Summary ---
Author Organization [facility] Address [address] 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 PTH was elevated. She is seeing pattern hand later this month. Last Assessment & Plan: Recent ionized calcium and phos were okay. PTH was elevated. She is seeing pattern hand later this month. Nontoxic uninodular goiter 09/05/2020 [...] Encounters Date Type Department Care Team Description 05/20/2025 8:40 AM EDT Office Visit [facility] [address] [place] [address] Hetal Robertson APRN CKD (chronic kidney disease) stage 4, GFR 15-29 ml/min (CMS/[facility]) (Primary Dx); Diabetes mellitus due to underlying condition with diabetic chronic kidney disease, unspecified CKD stage, unspecified whether prison insulin use (CMS/[facility]); Essential hypertension; History of parathyroidectomy; Localized edema 03/22/2025 9:45 AM EDT Office Visit [facility] [address] [place] [address] Nate Mosqueda MD Left thyroid nodule; Hyperparathyroidism ([facility]/HCC) 03/22/2025 Travel from Last 3 Months Immunizations [...] drink first t srinivasan in the morning (EYE-CASE MANAGEMENT RN) to steady your nerves or to get [...] Description 08/19/2025 8:40 AM EST Office Visit [facility] [address] [place] [address] Hetal Robertson, YORDY [address] [address] Health Maintenance Due Date Last Done Comments [facility]-Bone Density Scan 1955 [facility]-Hepatitis C Screening 1955 [facility]-Medicare Annual Wellness (AWV) 1955 [facility]-Infant/Child/Adol SDOH Screenings 1955 Diabetes: Dental Exam 1966 [facility]- SDOH Screenings 1974 [facility]-Adult SDOH Screenings 1974 [facility]-Pneumococcal Vaccine: 50+ Years (1 of 2 - PCV) 1975 CT Colonography 2001 Colonoscopy 2001 FIT-DNA 2001 FIT 2001 FOBT 2001 Sigmoidoscopy 2001 [facility]-Colorectal Cancer Screening 2001 [facility]-Breast Cancer Screening 2006 [facility]-Depression Screening 08/05/2023 08/05/2022, 07/09 [id number] Vaccine ( season) 2025 07/16/2023, 06/14/2022, 06/30/2021, Additional history exists [facility]-Influenza Vaccine (#1) 05/09/202506/17, 05/27/2023, 08/23/2022, Additional history exists [facility]-Diabetes: Hemoglobin A1C 08/09/202512/2024, 07/14/2024, 12/23/2023, Additional history exists [facility]-DTaP,Tdap,and Td Vaccines (2 - Td or Tdap) 01/07/2027 01/07/2017 [facility]-RSV Vaccine: 60+ Years or Completed 05/27/2023 [facility]-Zoster Vaccines Completed 03/01/2024, [facility]-Obesity Intervention Completed 025, 12/31/2024, 10/08/2024, Additional history exists HPV Vaccines Aged Out [...] this topic Medical Devices Implanted Type Area Stock Cutter Device Identifier Shelf Expiration Date Model / Serial / Lot Prolaryn Plus - [id number] - [id number] Implanted:Qty : 1 on 07/18/2021 by Claude Ruano MD at [facility] Implant N/A: Yaa Tate [id number] 02/10/2023 [id number] / [id number] / Tendril Mri Ra Lead [facility] [employer]-07/08/20 17 Implanted: (Quantity not on file) Lead Chest [employer] [id number] / / Tendril Mri Rv Lead [employer]-07/08/20 17 Implanted: (Quantity not on file) Lead Chest [employer] [id number] / / Assurity Mri [employer] Pacemaker- Implanted: (Quantity not on file) Pacemaker Chest [employer] [id number] / / Description:RA LEAD MODEL: [id number] RV LEAD MODEL: [id number] [place] [address] [facility] Advance Directives * Full Code (Latest Code Status on File) Date Activated Date Inactivated Comments 10/04/2024 7:25 PM 10/07/2024 10:34 AM Question Answer Comments Patient has decision-making capacity? Yes * Full Code Date Activated Date Inactivated Comments 08/12/2022 1:46 PM 08/13/2022 12:30 PM Question Answer Comments Patient has decision-making capacity? Yes Care Teams Workers Compensation Examiner Relationship Specialty Start Date End Date Tavo Read DO [address] [place] [address] PCP - General 11/11/24
--- OUTSIDE RECORDS SUMMARY | 2025-06-06 11:35 | XMS_ITS | Encounter Summary ---
Author Organization Healthcare Address [address] [place] [address] Care Team Providers Care Associate Partner Name Role Phone Perry Askew MD Primary Care Provider [phone] Ricardo Lemons MD Primary Care Provider [phone] Tavo Read DO Primary Care Provider [phone] Encounter Details Date Type Department Care Team (Late Contact Info) Description 06/14/2022 Orders Only External Location [address] [place] [address] Provider, External Social History Tobacco Use Types [...] Description 08/19/2025 8:40 AM EST Office Visit [facility] [address] [place] [address] Hetal Robertson, INFORMATION AND REFERRAL DIRECTOR [address] [address] documented as of this encounter [...] as of this encounter Care Teams Associate Partner Relationship Specialty Start Date End Date Perry Askew MD PCP - General 02/11/22 07/02/23 Ricardo Lemons MD [address] [place] [address] [place] [address] PCP - General 07/03/23 11/10/24 Tavo Read DO [address] [facility] [address] [place] [address] PCP - General 11/11/24 documented as of this encounter
--- OUTSIDE RECORDS SUMMARY | 2025-06-06 11:35 | XMS_ITS | Encounter Summary ---
Author Organization Healthcare Address [address] [place] [address] Care Team Providers Care Hotel Front Desk Clerk Name Role Phone Ricardo Lemons MD Primary Care Provider [phone] Tavo Read DO Primary Care Provider [phone] Reason for Visit * Reason Comments Med Refill Encounter Details Date Type Department Care Team ([facility] st Contact Info) Description 03/29/2024 Refill [facility] [address] [place] [address] Hetal Robertson, REAL ESTATE VALUER [address] [address] Social History Tobacco Use Types [...] drink first t srinivasan in the morning (EYE-SENIOR LIBRARIAN) to steady your nerves or to get [...] Description 08/19/2025 8:40 AM EST Office Visit [facility] [address] [place] [address] Hetal Robertson, REAL ESTATE VALUER [address] [address] documented as of this encounter [...] documented as of this encounter Care Teams Hotel Front Desk Clerk Relationship Specialty Start Date End Date Ricardo Lemons MD [address] [facility] [place] [address] PCP - General 07/03/23 11/10/24 Tavo Read DO [address] [place] [address] PCP - General 11/11/24 documented as of this encounter
--- OUTSIDE RECORDS SUMMARY | 2025-06-06 11:35 | XMS_ITS | Encounter Summary ---
Author Organization [facility] Address [address] [place] [address] Care Team Providers Care Buggy Ladle Tender Name Role Phone Perry Askew MD Primary Care Provider [phone] Ricardo Lemons MD Primary Care Provider [phone] Tavo Read DO Primary Care Provider [phone] Reason for Referral * Consultation (Routine) - Closed Specialty Diagnoses / Procedures Referred By Contirma t Referred To Contact Otolaryngology Diagnoses Congenital malformations of other endocrine glands Perry Askew MD Phone: tel: fax: Referral ID Status Reason Start Date Expiration Date V isits Requested Visits Authorized [id number] Closed Specialty Services Required 06/27/2022 12/27/2023 1 1 Encounter Details Date Type Department Care Team (Latest Contact Info) Description 06/27/2022 Community [facility] [address] [place] [address] Perry Askew MD [address] [place] [address] Congenital malformations of other endocrine glands (Primary [...] Description 08/19/2025 8:40 AM EST Office Visit [facility] [address] [place] [address] Hetal Robertson, PROFESSIONAL BASS FISHERMAN [address] [address] Scheduled Referrals Name Type Priority [...] documented as of this encounter Care Teams Buggy Ladle Tender Relationship Specialty Start Date End Date Perry Askew MD PCP - General 02/11/22 07/02/23 Ricardo Lemons MD [address] [place] [address] [place] [address] PCP - General 07/03/23 11/10/24 Tavo Read DO [address] [place] [address] PCP - General 11/11/24 documented as of this encounter
[2025-06-06 11:50] LABS: Hematocrit 37.6 % (37.0-47.0); Hemoglobin 12.3 g/dL (12.2-16.2); Immature Granulocytes % 0.3 %; Mean Corpuscular HGB Conc 32.7 g/dL (31.8-35.4); Mean Corpuscular Hemoglobin 30.3 pg (27.0-31.2); Mean Corpuscular Volume 92.6 fl (81-99); Nucleated Red Blood Cells % 0 %; Platelet Count 220 K/mm3 (142-424); Red Blood Count 4.06 M/mm3 (4.20-5.40); Red Cell Distribution Width-SD 47.9 fL; White Blood Count 10.6 K/mm3 (4.8-10.8)
[2025-06-06 12:54] LABS: Free T4 (Free Thyroxine) 1.45 ng/dl (0.78-2.19)
[2025-06-06 13:26] LABS: Alanine Aminotransferase 14 U/L (12-78); Albumin Level 4.1 g/dl (3.5-5.0); Alkaline Phosphatase 69 U/L (38-126); Anion Gap 16.0 mEq/L (5-15); Aspartate Amino Transferase 22 U/L (14-36); Bilirubin,Direct 0.2 mg/dl (0.0-0.4); Bilirubin,Indirect 0.4 mg/dL (0.0-0.9); Bilirubin,Total 0.6 mg/dl (0.2-1.3); Bilirubin,Unconjugated 0.5 mg/dL (0.0-1.1); Blood Urea Nitrogen 37 mg/dl (7-17); Calcium 9.0 mg/dl (8.4-10.2); Carbon Dioxide 31 mmol/L (22.0-30.0); Chloride 101 mmol/L (98-107); Cholesterol 141 mg/dl (140-200); Creatinine,Serum 2.00 mg/dl (0.52-1.04); Estimated Glomerular Filt Rate 25 ml/min (>60); GFR (African American) 30 ML/MIN (>60); Glucose 110 mg/dl (74-100); HDL Cholesterol 34 mg/dl (40-60); Magnesium 2.5 mg/dl (1.6-2.3); Potassium 5.0 mmoL/L (3.5-5.1); Sodium 143 mmol/L (136-145); Total Protein,Serum 6.9 g/dl (6.3-8.2); Triglycerides 146 mg/dl (30-150)
[2025-06-06 13:56] LABS: Thyroid Stimulating Hormone 0.11 uIU/mL (0.465-4.68)
== END 2025-06-06 23:59 | disposition home or self-care (01) ==
LOC: LAB 11:33
PROVIDERS: PCP Internal Medicine; Visit Provider Internal Medicine
DX: E78.5 Hyperlipidemia, unspecified (principal); I10 Essential (primary) hypertension; I77.9 Disorder of arteries and arterioles, unspecified
CPT/HCPCS: 36415; 80048; 80061; 80076; 83735; 84439; 84443; 85025

== ENCOUNTER 2025-08-10 15:10 | Outpatient (CLI) | payer MEDICARE, SELFPAY ==
--- OUTSIDE RECORDS SUMMARY | 2025-08-10 15:12 | XMS_ITS | Encounter Summary ---
Author Organization [facility] Address [address] [place] [address] Care Team Providers Care Personal Financial Planner Name Role Phone Perry Askew MD Primary Care Provider [phone] Ricardo Lemons MD Primary Care Provider [phone] Tavo Read DO Primary Care Provider [phone] Reason for Referral * Consultation (Routine) - Closed Specialty Diagnoses / Procedures Referred By Contirma t Referred To Contact Otolaryngology Diagnoses Congenital malformations of other endocrine glands Perry Askew MD Phone: tel: fax: Referral ID Status Reason Start Date Expiration Date V isits Requested Visits Authorized [id number] Closed Specialty Services Required 06/27/2022 12/27/2023 1 1 Encounter Details Date Type Department Care Team (Latest Contact Info) Description 06/27/2022 Community [facility] Community Practice [address] [place] [address] Perry Askew MD [address] [place] [address] Congenital malformations of other endocrine glands (Primary [...] Description 08/19/2025 8:40 AM EST Office Visit [facility] [address] [place] [address] Hetal Robertson, DIGITAL SALES DIRECTOR [address] [address] Scheduled Referrals Name Type Priority [...] documented as of this encounter Care Teams Personal Financial Planner Relationship Specialty Start Date End Date Perry Askew MD PCP - General 02/11/22 07/02/23 Ricardo Lemons MD [address] [place] [address] [place] [address] PCP - General 07/03/23 11/10/24 Tavo Read DO [address] [place] [address] PCP - General 11/11/24 documented as of this encounter
--- OUTSIDE RECORDS SUMMARY | 2025-08-10 15:12 | XMS_ITS | Encounter Summary ---
Author Organization [facility] Address [address] [place] [address] Care Team Providers Care Sawmill Production Worker Name Role Phone Perry Askew MD Primary Care Provider [phone] Ricardo Lemons MD Primary Care Provider [phone] Tavo Read DO Primary Care Provider [phone] Encounter Details Date Type Department Care Team (Late Contact Info) Description 06/24/2022 Community [facility] Community Practice [address] [place] [address] Perry Askew MD [address] [place] [address] Congenital anomalies of other endocrine glands (Primary [...] 8:40 AM EST Office Visit [facility] [address] [place] [address] Hetal Robertson, BEHAVIORAL HEALTH CASE MANAGER [address] [address] documented as of this encounter Visit Diagnoses Diagnosis Congenital anomalies of other endocrine glands- Primary documented in this encounter Additional Health Concerns Assessment Noted Time A fall risk assessment has been complete d for the patient 04/08/2022 10:41 AM EDT documented as of this encounter Care Teams Sawmill Production Worker Relationship Specialty Start Date End Date Perry Askew MD PCP - General 02/11/22 07/02/23 Ricardo Lemons MD [address] [place] [address] PCP - General 07/03/23 11/10/24 Tavo Read DO [address] [place] [address] [address] [place] [address] PCP - General 11/11/24 documented as of this encounter
--- OUTSIDE RECORDS SUMMARY | 2025-08-10 15:12 | XMS_ITS ---
Laboratory report Created on: August 09, 2025 ELLE CORONADO : 1955 Sex: Female Author Organization Unknown PROBLEMS Problems List Code Description RESULTS Laboratory Orders Date Order Code Test 2023-09-10 [id number] BENZODIAZEPINES CONFIRM, URINE Laboratory Results Date LOINC Test Value Unit Reference Range Interpre tation 2023-09-10 8251-1 FPRCF 2023-09-10 3390-2 BENZODIAZEPINES P NG/ML A 2023-09-10 3861-2 NORDIAZEPAM NEG. 2023-09-10 57922-0 OXAZEPAM NEG. 2023-09-10 3654-1 FLURAZEPAM NEG. 2023-09-10 23803-6 LORAZEPAM NEG. 2023-09-10 9351-8 ALPRAZOLAM NEG. 2023-09-10 29006-4 CLONAZEPAM P A 2023-09-10 87930-7 CLONAZEPAM CONF, [place], UR 1177 NG/ML 2023-09-10 29473-8 TEMAZEPAM NEG. 2023-09-10 80551-7 TRIAZOLAM NEG. 2023-09-10 12272-5 MIDAZOLAM NEG.
--- OUTSIDE RECORDS SUMMARY | 2025-08-10 15:12 | XMS_ITS | Encounter Summary ---
Author Organization [facility] Address [address] [place] [address] Care Team Providers Care Hoist Worker Name Role Phone Ricardo Lemons MD Primary Care Provider [phone] Tavo Read DO Primary Care Provider [phone] Reason for Visit * Reason Comments Med Refill Encounter Details Date Type Department Care Team ([facility] st Contact Info) Description 03/29/2024 Refill [facility] [address] [place] [address] Hetal Robertson, GRINDER OPERATOR EXTERNAL TOOL [address] [address] Social History Tobacco Use Types [...] drink first t srinivasan in the morning (EYE-PROSTHETIC DENTIST) to steady your nerves or to get [...] Description 08/19/2025 8:40 AM EST Office Visit [facility] [address] [place] [address] Hetal Robertson, GRINDER OPERATOR EXTERNAL TOOL [address] [address] documented as of this [...] documented as of this encounter Care Teams Hoist Worker Relationship Specialty Start Date End Date Ricardo Lemons MD [address] [facility] [place] [address] PCP - General 07/03/23 11/10/24 Tavo Read DO [address] [place] [address] PCP - General 11/11/24 documented as of this encounter
--- OUTSIDE RECORDS SUMMARY | 2025-08-10 15:12 | XMS_ITS | Clinical Summary ---
Author Organization [facility] Address [address] [place] [address] Care Team Providers Care Promotional Demonstrator Name Role Phone JacekTavo moon Carmine Primary [...] tablet 1 Active nystatin-triam cinolone (MYCOLOG II) 916836-7.1 UNIT/GM-% cream APPLY TOPICALLY TO THE AFFECTED [...] mL 5 Active Insulin Pen Needle (Pen [place]) 32G X 4 MM misc Use 1 [...] Diabetes will be reassessed in 6 months. Nexstim G7 CGM was downloaded today. Data was [...] months. Continue CGM. She didn't have the Xageek Seymour with her today so we couldn't download [...] okay. PTH was elevated. She is seeing mold dresser later this month. 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 Family History Medical History Relation Name Comments [...] Visit [facility] [address] [address] Noam Brower MD [address] [id number] Health Maintenance Due Date Last Done Comments DXA SCAN 1955 DIABETIC FOOT EXAM 1966 URINE MICROALBUMIN-CREATININ E RATIO (uACR) 1966 Pneumococcal Vaccine 50+ (1 of 2 - PCV) 1975 MAMMOGRAM 1996 COLOGUARD 2001 COLON CANCER SCREENING 5 YEA R SIGMOIDOSCOPY 2001 CT COLONOGRAPHY 2001 FECAL OCCULT BLOOD TEST 2001 FIT Testing (1 year) 2001 ANNUAL WELLNESS VISIT 08/28/2020 HEPATITIS C SCREENING 08/28/2020 DIABETIC EYE EXAM 03/01/2025 03/01/2024, , 07/29/2023, Additional history exists INFLUENZA VACCINE 04/08/2025 06/17/2024, , 05/27/2023, Additional history exists COVID-19 Vaccine (5 - 2024-2 6 season) 2025 07/16/2023, 06/14/2022, 06/30/2021, Additional history exists LIPID PANEL 07/14/2025 07/14/2024, 1203/2023, 03/19/2023, Additional history exists HEMOGLOBIN A1C 08/11/2025 02/09/2025, 11/0 02/2024, 12/23/2023, Additional history exists TDAP/TD VACCINES (2 - Td or Tdap) 01/07/2027 017 COLONOSCOPY 04/25/2033 04/25/2023, 04/25/2023 COLORECTAL CANCER SCREENING 04/25/2033 ZOSTER VACCINE Completed 03/01/2024, 12/04/2023 Procedures Procedure [...] Hemoglobin A1C 5.1 4.5 - 5.7 % [facility] Lot Number [id number] [facility] Expiration Date 11/03/2026 [facility] Blood 02/09/2025 1:30 PM EDT Noam Brower MD POINT OF CARE TEST ORDERA BLES Final Result [facility]
[address] [place] [address], * (ABNORMAL) Lipid Panel (07/14/2024 10:27 AM EST) Total Cholesterol 154 0 - 200 mg/dL 07/14/2024 2:42 PM EST [facility] Triglycerides 154(H) 0 - 150 mg/dL 07/14/2024 2:42 PM EST [facility] HDL Cholesterol 36(L) 40 - 60 mg/dL 07/14/2024 2:42 PM EST [facility] LDL Cholesterol 91 0 - 100 mg/dL 07/14/2024 2:42 PM EST [facility] VLDL Cholesterol 27 5 - 40 mg/dL 07/14/2024 2:42 PM EST [facility] LDL/HDL Ratio 2.42 07/14/2024 2:42 PM EST [facility] Blood Structure of left upper limb / Unknown Venipuncture / Unknown 07/14/2024 10:27 AM EST 07/14/2024 10:28 AM EST [facility] - 07/14/2024 2:42 PM EST Cholesterol [...] MD LAB BLOOD ORDERABLES Jeanne vick Result [facility]
[address] [place] [address], * EYE EXAM SCANNED (03/01/2024) Anatomical Region Laterality Modality Other Darryl Francois [facility] CHART REVIEW TABS Final Resu lt from Last 3 Months or Most Recently Relevant to Health Maintenance Insurance [facility] MEDICARE A & [place] [address] [address] [employer] Care Teams Promotional Demonstrator Relationship Specialty Start Date End Date Tavo Read DO [address] [place] [address] PCP - General Internal Medicine 07/21/24
--- OUTSIDE RECORDS SUMMARY | 2025-08-10 15:12 | XMS_ITS | Encounter Summary ---
Author Organization Healthcare Address [address] [place] [address] Care Team Providers Care Carriage Setter Name Role Phone Perry Askew MD Primary Care Provider [phone] Ricardo Lemons MD Primary Care Provider [phone] Tavo Read DO Primary Care Provider [phone] Encounter Details Date Type Department Care Team (Late Contact Info) Description 06/14/2022 Orders Only External Location [address] [place] [address] Provider, External Social History Tobacco Use Types [...] Description 08/19/2025 8:40 AM EST Office Visit [facility] [address] [place] [address] Hetal Robertson, DISTILLERY MILLER [address] [address] documented as of this encounter [...] documented as of this encounter Care Teams Carriage Setter Relationship Specialty Start Date End Date Perry Askew MD PCP - General 02/11/22 07/02/23 Ricardo Lemons MD [address] [place] [address] [place] [address] PCP - General 07/03/23 11/10/24 Tavo Read DO [address] [facility] [address] [place] [address] PCP - General 11/11/24 documented as of this encounter
--- OUTSIDE RECORDS SUMMARY | 2025-08-10 15:12 | XMS_ITS | Encounter Summary ---
Author Organization [facility] Address [address] [place] [address] Care Team Providers Care Deputy Treasurer Name Role Phone Perry Askew MD Primary Care Provider [phone] Ricardo Lemons MD Primary Care Provider [phone] Tavo Read DO Primary Care Provider [phone] Encounter Details Date Type Department Care Team (Late Contact Info) Description 06/20/2022 Community [facility] Community Practice [address] [place] [address] Perry Askew MD [address] [place] [address] Congenital anomalies of other endocrine glands (Primary [...] 8:40 AM EST Office Visit [facility] [address] [place] [address] Hetal Robertson, HEAD COUNSELOR [address] [address] documented as of this encounter Visit Diagnoses Diagnosis Congenital anomalies of other endocrine glands- Primary documented in this encounter Additional Health Concerns Assessment Noted Time A fall risk assessment has been complete d for the patient 04/08/2022 10:41 AM EDT documented as of this encounter Care Teams Deputy Treasurer Relationship Specialty Start Date End Date Perry Askew MD PCP - General 02/11/22 07/02/23 Ricardo Lemons MD [address] [place] [address] PCP - General 07/03/23 11/10/24 Tavo Read DO [address] [place] [address] [address] [place] [address] PCP - General 11/11/24 documented as of this encounter
--- OUTSIDE RECORDS SUMMARY | 2025-08-10 15:12 | XMS_ITS | Clinical Summary ---
Author Organization [facility] Address [address] [place] [address] Phone Care Team Providers Care Medicaid Billing Clerk Name Role Phone Unavailable Primary Care Provider [...]
--- OUTSIDE RECORDS SUMMARY | 2025-08-10 15:13 | XMS_ITS | Clinical Summary ---
Author Organization [facility] Address [address] [place] [address] Care Team Providers Care Gelatin Maker Utility Name Role Phone Tavo Read Paige WING Primary Care Provider [phone] Allergies Active Allergy Reactions Criticality Noted Date [...] and 70 units with dinner 3 Active diphenhydrAMINE -acetaminophen (Tylenol PM) 25-500 MG [...] a week. 36 tablet 1 5 Active Additional Information Patient not taking.Reported [...] with BMI of 40.0-44.9, adult 03/0 10/2021 GERD (gastroesophageal reflux disease) Vocal cord [...] 3 months. 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 PTH was elevated. She is seeing section laborer later this month. Last Assessment & Plan: Recent ionized calcium and phos were okay. PTH was elevated. She is seeing section laborer later this month. Nontoxic uninodular goiter 09/05/2020 [...] 3 months. Left thyroid nodule 09/05/2020 12/18/19 Overview (07/19/2022): Last Assessment & Plan: She has been euthyroid. Having some compressive sxs. Scheduled to see ENT at in about 2 weeks. History of heart disorder 01/08/2018 Chest pain 05/20/2016 07/17/2021 Osteopenia 08/12/2014 10/31/2021 Renal calculi 08/12/2014 10/31/2021 Osteoporosis 08/01/2014 10/31/2021 Encounters Date Type Department Care Team Description 05/20/2025 8:40 AM EDT Office Visit [facility] [address] [place] [id number] Hetal Robertson APRN CKD (chronic kidney disease) stage 4, GFR 15-29 ml/min (CMS/HCC) (Primary Dx); Diabetes mellitus due to underlying condition with diabetic chronic kidney disease, unspecified CKD stage, unspecified whether long term care social worker insulin use (CMS/HCC); Essential hypertension; History of parathyroidectomy; Localized edema from Last 3 Months Immunizations Immunization Administration [...] drink first t srinivasan in the morning ([employer]) to steady your nerves or to get [...] [facility] [address] [place], [place] [phone] Hetal Robertson, [employer] [address] [address] Health Maintenance Due Date Last Done Comments [facility]-Bone Density Scan 1956 [facility]-Hepatitis C Screening 1956 [facility]-Medicare Annual Wellness (AWV) 1956 [facility]-/Child/Adol SDOH Screenings 1956 Diabetes: Dental Exam 1966 [facility]- SDOH Screenings 1974 [facility]-Adult SDOH Screenings 1974 [facility]-Pneumococcal Vaccine: 50+ Years (1 of 2 - PCV) 1975 CT Colonography 2001 Colonoscopy 2001 FIT-DNA 2001 FIT 2001 FOBT 2001 Sigmoidoscopy 2001 [facility]-Colorectal Cancer Screening 2001 [facility]-Breast Cancer Screening 2006 [facility]-Depression Screening 08/05/2023 08/05/2022, 07/09 [id number] Vaccine ( season) 2025 07/16/2023, 06/14/2022, 06/30/2021, [...] this topic Medical Devices Implanted Type Area Pet Counselor Device Identifier Shelf Expiration Date Model / Serial / Lot Prolaryn Plus - [id number] - [id number] Implanted:Qty : 1 on 07/18/2021 by Claude Ruano MD at [facility] Implant N/A: Throat [id number] 02/10/2023 [id number] / [id number] / Tendril Mri Ra Lead [facility] [employer]-07/08/20 17 Implanted: (Quantity not on file) Lead Chest [employer] [id number] / / Tendril Mri Rv Lead [employer]-07/08/20 17 Implanted: (Quantity not on file) Lead Chest [employer] [id number] / / Assurity Mri [employer] Pacemaker- Implanted: (Quantity not on file) Pacemaker Chest [employer] [id number] / / Description:RA LEAD MODEL: [id number] RV LEAD MODEL: [id number] Insurance MEDICARE [facility] Advance Directives * Full Code (Latest Code Status on File) Date Activated Date Inactivated Comments 10/04/2024 7:25 PM 10/07/2024 10:34 AM Question Answer Comments Patient has decision-making capacity? Yes * Full Code Date Activated Date Inactivated Comments 08/12/2022 1:46 PM 08/13/2022 12:30 PM Question Answer Comments Patient has decision-making capacity? Yes Care Teams Gelatin Maker Utility Relationship Specialty Start Date End Date Tavo Read DO [address] [place] [id number] [facility] - General 11/11/24
[2025-08-10 15:14] LABS: Microscopic, Urine URINE MICROSCOPIC (MICROSCOPIC)
[2025-08-10 15:50] LABS: Hematocrit 39.6 % (37.0-47.0); Hemoglobin 12.5 g/dL (12.2-16.2); Mean Corpuscular HGB Conc 31.6 g/dL (31.8-35.4); Mean Corpuscular Hemoglobin 29.4 pg (27.0-31.2); Mean Corpuscular Volume 93.2 fl (81-99); Nucleated Red Blood Cells % 0 %; Platelet Count 250 K/mm3 (142-424); Red Blood Count 4.25 M/mm3 (4.20-5.40); Red Cell Distribution Width-SD 51.3 fL; White Blood Count 14.5 K/mm3 (4.8-10.8)
[2025-08-10 15:52] LABS: Bilirubin,Urine Negative (Negative); Color,Urine YELLOW (Yellow); Glucose,Urine (UA) Negative (Negative); Ketones,Urine Negative (Negative); Leukocyte Esterase,Urine TRACE (Negative); PH,Urine 8.5 (5.0-8.5); Protein,Urine Negative (Negative); Specific Gravity, Urine 1.020 (1.005-1.030); Urobilinogen,Urine 0.2 EU/dl (0.2)
[2025-08-10 16:16] LABS: Bacteria,Urine 2+ /lpf
[2025-08-10 16:24] LABS: Chloride 99 mmol/L (98-107)
[2025-08-10 16:25] LABS: Albumin Level 4.3 g/dl (3.5-5.0); Potassium 4.7 mmoL/L (3.5-5.1); Sodium 146 mmol/L (136-145)
[2025-08-10 16:27] LABS: Anion Gap 16.7 mEq/L (5-15); Blood Urea Nitrogen 34 mg/dl (7-17); Carbon Dioxide 35 mmol/L (22.0-30.0)
[2025-08-10 16:28] LABS: Calcium 9.0 mg/dl (8.4-10.2); Creatinine,Serum 2.00 mg/dl (0.52-1.04); Estimated Glomerular Filt Rate 25 ml/min (>60); GFR (African American) 30 ML/MIN (>60); Phosphorous 3.4 mg/dl (2.5-4.5)
[2025-08-10 16:43] LABS: Glucose 49 mg/dl (74-100)
== END 2025-08-10 23:59 | disposition home or self-care (01) ==
LOC: LAB 15:10
PROVIDERS: PCP Internal Medicine; Visit Provider Nurse Practitioner
DX: N18.4 Chronic kidney disease, stage 4 (severe) (principal)
CPT/HCPCS: 36415; 80069; 81001; 82570; 84156; 85027; 87086